=== PATIENT | male | born 1940 | race Caucasian/White ===

== ENCOUNTER → 2019-11-14 14:02 | Outpatient (CLI) | payer MEDICARE, OTHER, SELFPAY ==
--- NOTE | ~2019-11-14 | XR_ITS ---
XR chest 2V 11/14/2019 14:55 Indication: Cough with wheezing Procedure: 2 view chest Comparison: Comparison to multiple prior studies sequentially, with oldest reviewed study dated 01/2015. Findings: There is asymmetric density in the left suprahilar region. There are mild bilateral perihil ar interstitial infiltrates with prominence of the pulmonary arteries. No pleural effusion or pneumot horax. Status post median sternotomy for CABG. Impression: 1: Focal asymmetry left suprahilar region. This may represent focal airspace consolidation secondary to atelectasis or pneumonia, although mass is not excluded. Follow-up CT chest recommended. 2: Borderline heart size with pulmonary vascular congestion. Reviewed, dictated and finalized at location A. HOUSE KEEPER Impression: 1: Focal asymmetry left suprahilar region. This may represent focal airspace co nsolidation secondary to atelectasis or pneumonia, although mass is not exclude d. Follow-up CT chest recommended. 2: Borderline heart size with pulmonary vascular congestion.
== END ==
PROVIDERS: PCP Family Medicine Adolescent Medicine; Visit Provider Physician Assistant
DX: R05 Cough (principal); R06.2 Wheezing; R09.89 Other specified symptoms and signs involving the circulatory and respiratory systems
CPT/HCPCS: 71046

== ENCOUNTER → 2019-12-12 11:16 | Outpatient (CLI) | payer MEDICARE, OTHER, SELFPAY ==
--- NOTE | ~2019-12-12 | XR_ITS ---
EXAMINATION: XR chest 2V DATE: 12/12/2019 11:33 INDICATION: Follow-up pneumonia TECHNIQUE: frontal and lateral views of the chest were obtained. COMPARISON: Chest radiograph dated 11/14/2019 and 07/13/2018 FINDINGS: Improvement in prior airspace opacities in the bilateral lower lung zones and left suprahilar region. Mild residual streaky opacities at the posterior lung bases on the lateral projection and favor mild bibasilar atelectasis over pneumonia. No new airspace opacities, pulmonary edema, pleural effusion o r pneumothorax. The cardiomediastinal silhouette is normal. Median sternotomy wires and mediastinal s urgical clips are seen, likely from prior coronary artery bypass grafting. IMPRESSION: 1. Resolution of the majority bilateral airspace opacities with residual mild streaky opacities at th e posterior lung bases and favor atelectasis over pneumonia. Reviewed, dictated and finalized at location A. IMPRESSION: 1. Resolution of the majority bilateral airspace opacities with residual mild s treaky opacities at the posterior lung bases and favor atelectasis over pneumon ia.
== END ==
PROVIDERS: PCP Family Medicine Adolescent Medicine; Visit Provider Physician Assistant
DX: J18.9 Pneumonia, unspecified organism (principal)
CPT/HCPCS: 71046

== ENCOUNTER 2021-04-14 14:29 | Outpatient (CLI) | payer MEDICARE, SELFPAY ==
--- NOTE | ~2021-04-14 | MR_ITS ---
EXAMINATION: MR lumbar spine wo [facility] EXAM DATE: 04/14/2021 15:30 INDICATION: Right leg numbness, acute weakness. Low back pain. TECHNIQUE: Multi-sequential, multiplanar MR images of the lumbar spine were obtained without contrast . Sagittal T1, T2, T2 fat saturation images. Axial T2 weighted images. Comparison is made to prior examination from 06/06/2014. FINDINGS: The conus medullaris terminates at the L1/2 level and has normal signal intensity and morph ology. There is moderate to severe loss of L5-S1 disc height with 4 mm retrolisthesis. Moderate loss of the other lumbar disc heights. There are no suspicious marrow signal abnormalities. Paraspinal so ft tissue is unremarkable. Level by level evaluation: T12-L1: Disc does not extend beyond the endplate margin. Facet arthropathy: Mild. Neural foraminal stenosis: No stenosis. Central canal stenosis: No stenosis. L1-L2: There is a mild to moderate diffuse disc bulge. Facet arthropathy: Mild to moderate. Neural foraminal stenosis: Mild bilateral. Central canal stenosis: Mild. L2-L3: There is a moderate diffuse disc bulge. Facet arthropathy: Mild to moderate. Neural foraminal stenosis: Mild bilateral. Central canal stenosis: Mild to moderate. L3-L4: There is a moderate diffuse disc bulge. Facet arthropathy: Moderate to severe. Ligamentum flavum enlargement. Neural foraminal stenosis: Mild to moderate right, mild left. Central canal stenosis: Moderate. L4-L5: There is a moderate diffuse disc bulge superimposed right central extrusion, inferior migratio n into the lateral recess causing moderate lateral recess stenosis. Extruded fragment measures about 6 x 8 x 12 mm in size. Facet arthropathy: Moderate. Neural foraminal stenosis: Moderate left, mild to moderate right. Central canal stenosis: Mild to moderate. L5-S1: There is a moderate diffuse disc bulge. Facet arthropathy: Mild to moderate left, mild right. Neural foraminal stenosis: Moderate bilateral, left greater than right. Central canal stenosis: Mild. The extrusion at L4-5 has developed compared to previous examination 2013, and there has been some in terval progression in spondylosis. IMPRESSION: 1. L4-5 right central extrusion, inferior migration causing moderate lateral recess stenosis. Could be affecting traversing right S1 nerve root. 2. L3-4 moderate central canal stenosis. 3. L5-S1 grade 1 retrolisthesis, moderate to severe disc disease. Reviewed, dictated and finalized at location A. IMPRESSION: 1. L4-5 right central extrusion, inferior migration causing moderate lateral r ecess stenosis. Could be affecting traversing right S1 nerve root. 2. L3-4 moderate central canal stenosis. 3. L5-S1 grade 1 retrolisthesis, moderate to severe disc disease.
== END 2021-04-14 14:30 | disposition home or self-care (01) ==
LOC: ANHIMG 14:45
PROVIDERS: PCP Family Medicine Adolescent Medicine; Visit Provider Family Medicine Adolescent Medicine
DX: R53.1 Weakness (principal); R20.2 Paresthesia of skin; M51.26 Other intervertebral disc displacement, lumbar region; M51.37 Other intervertebral disc degeneration, lumbosacral region
CPT/HCPCS: 72148

== ENCOUNTER 2021-07-23 13:08 | Outpatient (CLI) | payer MEDICARE, SELFPAY ==
--- NOTE | ~2021-07-23 | XR_ITS ---
EXAMINATION: XR chest 2V DATE: 07/23/2021 13:42 INDICATION: Dysphasia with exertion. TECHNIQUE: Frontal and lateral views of the chest were obtained. COMPARISON: Chest 2 views 10/17/2017, CT abdomen and pelvis 04/09/2014 FINDINGS: The chest demonstrates clear lungs without pneumonia, pleural effusion, or pneumothorax. Th e heart size is normal. Median sternotomy wires and mediastinal surgical clips are seen, likely from prior coronary artery bypass grafting. Surgical clips in the right upper quadrant are likely from cho lecystectomy. IMPRESSION: 1. No acute cardiopulmonary disease. Reviewed, dictated and finalized at location A.
== END 2021-07-23 13:09 | disposition home or self-care (01) ==
LOC: ANHIMG 13:17
PROVIDERS: PCP Family Medicine Adolescent Medicine; Visit Provider Family Medicine Adolescent Medicine
DX: R06.00 Dyspnea, unspecified (principal)
CPT/HCPCS: 71046

== ENCOUNTER 2021-08-12 14:03 | Outpatient (CLI) | payer MEDICARE, SELFPAY ==
--- NOTE | 2021-08-12 16:36 | WPDPFTINT ---
PFT Procedure Performed PFT Procedure Performed Flow Vol Loop Spirometry w/o Bronchodil PFT Interpretation This is a pulmonary function test with spirometry. The test was performed and results interpreted in accordance with the 2019 and 2005 ATS/ERS Task Force guidelines respectively using the Global Lung Function Initiative-2012 reference equations. Patient demonstrated good effort and cooperation. Reproducibility criteria were met. The quality of the pre bronchodilator spirometry maneuver was Grade A. Findings: Spirometry: The contour the inspiratory expiratory flow tracing are normal. The FVC is 2.31 L, 61% predicted. The FEV1 is 1.99 L, 70% predicted. The FEV1: FVC ratio was 85%. Impression: The FVC and FEV1 are mildly decreased with a normal FEV1:FVC ratio and without evidence of an obstructive abnormality. This pattern is consistent with a restrictive abnormality and if clinically indicated recommend full PFTs including spirometry, plethysmography and DLCO. There are no prior studies for comparison
== END 2021-08-12 14:04 | disposition home or self-care (01) ==
LOC: ANHPFT 14:05
PROVIDERS: PCP Family Medicine Adolescent Medicine; Visit Provider Family Medicine Adolescent Medicine
DX: R06.2 Wheezing (principal)
CPT/HCPCS: 94375

== ENCOUNTER 2021-09-09 08:07 | Outpatient (CLI) | payer MEDICARE, SELFPAY ==
--- NOTE | 2021-09-09 12:34 | WPDPFTINT ---
PFT Procedure Performed PFT Procedure Performed Plethysmography (Lung Vol) Diffusing Cap (DLCO) Flow Vol Loop Spirometry w/o Bronchodil PFT Interpretation This is a pulmonary function test with spirometry, plethysmography and diffusing capacity. The test was performed and results interpreted in accordance with the 2019 and 2005 ATS/ERS Task Force guidelines respectively using the Global Lung Function Initiative-2012 reference equations. Patient demonstrated good effort and cooperation. Reproducibility criteria were met. The quality of the spirometry maneuver was Grade A. Findings: Spirometry: The contour the inspiratory and expiratory flow tracing are normal. The FVC is 2.46 L, 64% predicted. The FEV1 is 1.94 L, 68% predicted. The FEV1: FVC ratio 79%. Plethysmography: The total lung capacity is 4.97 L, 70% predicted. The functional residual capacity is 2.54 L, 66% predicted. The residual volume is 2.33 L, 87% predicted. Diffusing capacity: The absolute diffusing capacity is 12.1, 51% predicted. The diffusing capacity corrected for alveolar volume is 2.90, 81% predicted. In comparison to previous spirometry performed on 08/12/2021 the FVC is unchanged from 2.35 L to 2.46 L. The FEV1 is unchanged from 1.99 L to 1.94 L. Plethysmography and diffusing capacity were not performed on 08/12/2021. Impression: There is a moderate restrictive ventilatory abnormality. The spirometry is normal without evidence of an obstructive abnormality. The absolute diffusing capacity is moderately decreased and normalizes when corrected for alveolar volume. In comparison to previous spirometry performed on 08/12 2021 there has been no significant change in the FVC or FEV1. Clinical correlation is recommended.
== END 2021-09-09 08:08 | disposition home or self-care (01) ==
PROVIDERS: PCP Family Medicine Adolescent Medicine; Visit Provider Family Medicine Adolescent Medicine
DX: R06.00 Dyspnea, unspecified (principal)
CPT/HCPCS: 94375; 94726; 94729

== ENCOUNTER 2021-11-06 11:00 | Outpatient (CLI) | payer MEDICARE, SELFPAY ==
[2021-11-06 12:01] LABS: Basophils Percent Auto 0.6 % (0.2-1.2); Eosinophils Absolute Auto 0.3 K/mm3 (0-0.3); Eosinophils Percent Auto 4.6 % (0-4.4); Hematocrit 41.2 % (42.0-52.0); Hemoglobin 13.2 g/dL (14.0-18.0); Immature Granulocyte Absolute 0.02 K/mm3 (0.00-0.031); Immature Granulocyte Percent A 0.3 % (0-0.5); Lymphocytes Absolute Auto 2.11 K/mm3 (0.9-3.2); Lymphocytes Percent Auto 31.1 % (18.3-44.2); Mean Corpuscular Hemoglobin 30.3 pg (26-34); Mean Corpuscular Volume 94.5 fl (80-100); Mean Platelet Volume 11.6 fl (7.4-10.4); Neutrophils Absolute Auto 3.3 K/mm3 (1.3-6.7); Neutrophils Percent Auto 48.4 % (45.5-73.1); Platelet Count Result 210 k/mm3 (150-375); Red Blood Count 4.36 M/mm3 (4.6-6.20); Red Cell Distribution Width 13.3 % (11.5-14.5); White Blood Count 6.8 K/mm3 (4.5-10.0)
== END 2021-11-06 11:01 | disposition home or self-care (01) ==
PROVIDERS: Visit Provider Internal Medicine Pulmonary Disease
DX: J98.4 Other disorders of lung (principal)
CPT/HCPCS: 36415; 85025

== ENCOUNTER 2021-11-11 08:05 | Outpatient (CLI) | payer MEDICARE, SELFPAY ==
--- NOTE | 2021-11-19 11:32 | WPDSLEEPSTUD ---
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 The patient frequently awakens from sleep short of breath. He denies awakening at night with heartburn, belching or cough. He constantly snores loud enough that others complain. He frequently has trouble sleeping when he has a cold. He denies waking gasping for air throughout night. He occasionally has breathing problems at night observed others. He rarely sweats excessively at night. He rarely has heart palpitations or irregular heartbeats during the night. He frequently falls asleep during the day but never while driving. He denies sleep paralysis and cataplexy. He occasionally has vivid dreamlike scenes upon awakening or falling asleep. He denies having nightmares. He frequently has thoughts racing through his mind. He rarely feels sad or depressed. He occasionally has anxiety. He occasionally notices parts of his body jerk. He frequently kicks during the night. He frequently has crawling and aching feelings in his legs as well as leg pain during the night. He rarely grinds his teeth during sleep but denies awakening with morning jaw pain. He occasionally is bothered by pain during the day and occasionally awakened by pain during the night. He frequently wakes up feeling stiff in the morning. He occasionally wakes up with sore achy muscles. He occasionally wakes up with pain in the neck, spine or other joints. He goes to bed at 11:00 p.m. on both weekdays and weekends. It takes him 30 minutes to fall asleep. He wakes up 2-3 times throughout the night to urinate. It takes him 1-2 hours to fall back asleep. He wakes up at 8:00 a.m. on both weekdays and weekends. He typically gets between 5-7 hours of sleep per night. He will stay in bed for 10 minutes after waking up in the morning. He currently lives with his . He does not consume any caffeinated beverages within 2 hours of bedtime. He does not engage in physical exercise before bedtime. Will read before falling asleep. He will take naps in the afternoon or the evening which are refreshing. He drinks 3 caffeinated beverages per day. He denies tobacco, alcohol and recreational drug use. [facility] Past Medical History Medical History CAD (coronary artery disease) GERD (gastroesophageal reflux disease) HTN (hypertension) Surgical History Surgical History Hx of CABG Medications Home Medications Medication Instructions Recorded Confirmed Type atorvastatin 10 mg tablet 10 mg PO DAILY #90 tablet 09/28/21 Rx amlodipine 10 mg tablet 10 mg PO DAILY 11/06/21 History aspirin 325 mg tablet 81 mg PO DAILY tablet 11/06/21 History chondroitin sulfate A sodium 400 1,200 mg PO DAILY cap 11/06/21 History mg capsule furosemide 40 mg tablet 40 mg PO QAM 11/06/21 History glucosamine sulfate 500 mg tablet 1,500 mg PO DAILY tablet 11/06/21 History isosorbide mononitrate 30 mg 30 mg PO DAILY 11/06/21 History tablet,extended release 24 hr levothyroxine 50 mcg capsule 50 mcg PO DAILY 11/06/21 History lisinopril 40 mg tablet 40 mg PO DAILY 11/06/21 History metoprolol tartrate 25 mg tablet 12.5 mg PO BID 11/06/21 History multivitamin with iron 1 tablet PO DAILY 11/06/21 History omeprazole 40 mg capsule,delayed 40 mg PO DAILY 11/06/21 History release probenecid 500 mg-colchicine 0.5 1 tablet PO
[2021-11-19 16:00] VITALS: BMI 30.8
== END 2021-11-12 06:46 | disposition home or self-care (01) ==
LOC: ANHCSM 08:05
PROVIDERS: PCP Family Medicine Adolescent Medicine; Visit Provider Internal Medicine Pulmonary Disease
DX: G47.10 Hypersomnia, unspecified (principal); G47.33 Obstructive sleep apnea (adult) (pediatric); I49.9 Cardiac arrhythmia, unspecified
CPT/HCPCS: 95811

== ENCOUNTER 2021-11-16 15:07 | Outpatient (CLI) | payer MEDICARE, SELFPAY ==
--- NOTE | ~2021-11-16 | CT_ITS ---
EXAMINATION: CT chest high resolution wo ar DATE: 11/16/2021 15:36 INDICATION: Shortness of breath. History of pneumonia. TECHNIQUE: Computed tomography (CT) of the chest was performed without intravenous contrast. The dose -length product was 279.05 mGy-cm. Automated exposure control and iterative reconstruction technique were employed. COMPARISON: Chest x-ray dated 07/23/2021 FINDINGS: Status post median sternotomy for CABG. No significant pleural or pericardial effusion. Sta tus post cholecystectomy. Heart size normal. Borderline size mediastinal lymph nodes are likely react jnony. There is atherosclerosis of the aorta and coronary arteries. No endobronchial lesions. No pneumo thorax. No suspicious pulmonary nodules or masses. No focal airspace consolidation to suggest pneumon ia. Mild thoracic spondylosis with accentuated kyphosis. IMPRESSION: 1. No acute cardiopulmonary disease. Reviewed, dictated and finalized at location B. CONSULTANT
== END 2021-11-16 15:08 | disposition home or self-care (01) ==
LOC: ANHIMG 15:14
PROVIDERS: PCP Family Medicine Adolescent Medicine; Visit Provider Internal Medicine Pulmonary Disease
DX: J44.9 Chronic obstructive pulmonary disease, unspecified (principal); J98.4 Other disorders of lung; R06.00 Dyspnea, unspecified; I70.0 Atherosclerosis of aorta; I65.23 Occlusion and stenosis of bilateral carotid arteries; M47.814 Spondylosis without myelopathy or radiculopathy, thoracic region
CPT/HCPCS: 71250

== ENCOUNTER 2021-11-26 12:29 | Outpatient (CLI) | payer MEDICARE, SELFPAY ==
--- NOTE | 2021-11-26 12:39 | ECHO_ITS ---
Patient Info Name: Manolo Agrawal Age: 81 years : 1940 Gender: Male Ht: 69 in Wt: 214 lbs BSA: 2.20 m2 HR: 59 bpm BP: 145 / 82 mmHg Technical Quality: Good Exam Date: 11/26/2021 1:35 PM Exam Location: [facility] Patient Status: Outpatient Admit Date: 11/26/2021 Staff Ordering Physician: Joshua Rose MD Firestopper Installer: Jean-Paul Knox, REGI, RT Attending Provider: Joshua Rose MD Referring Physician: Milton HER; Exam Type: CA echo doppler color flow Study Info Indications R06.00 - Dyspnea, unspecified Complete two-dimensional, color flow and Doppler transthoracic echocardiogram is performed. Strain analysis performed. Summary 1. Complete two-dimensional, color flow and Doppler transthoracic echocardiogram is performed. 2. Left ventricular chamber dimension is normal. 3. Left ventricular systolic function is normal, estimated at 60-65%. 4. There is mildly increased left ventricular wall thickness. 5. The left ventricular diastolic function is grade I diastolic dysfunction. 6. E/e' 7 is not elevated. 7. Global longitudinal strain is normal at -17.7%. 8. Left atrial chamber dimension is moderately enlarged. 9. There is mild mitral valve regurgitation. 10. There is mild tricuspid valve regurgitation. Left Ventricle E/e' 7 is not elevated. Global longitudinal strain is normal at -17.7%. Left ventricular chamber dimension is normal. Left ventricular systolic function is normal, estimated at 60-65%. There is mildly increased left ventricular wall thickness. The left ventricular diastolic function is grade I diastolic dysfunction. Right Ventricle Right ventricular systolic function is normal and with normal TAPSE 2.1 cm. Right ventricular chamber dimension is normal. Left Atria Left atrial chamber dimension is moderately enlarged. Right Atria Right atrial chamber dimension is normal. Aortic Valve The aortic valve is trileaflet. There is no aortic valve stenosis. There is no aortic valve regurgitation. Pulmonic Valve There is no pulmonic regurgitation. Mitral Valve There is no mitral valve stenosis. There is mild mitral valve regurgitation. Tricuspid Valve RVSP is not calculated due to an inadequate TR jet. There is mild tricuspid valve regurgitation. Pericardium/Pleural There is no pericardial effusion. Inferior Vena Cava Normal inferior vena cava with >50% collapse upon inspiration consistent with normal right atrial pressure, 5 mmHg. Aorta The aortic root size at the sinus of Valsalva is normal. Left Ventricular Outflow Tract Name Value Normal LVOT 2D LVOT Diameter 2.0 cm LVOT Doppler LVOT Peak Gradient 3 mmHg LVOT Mean Gradient 1 mmHg LVOT VTI 27 cm LVOT VTI/AV VTI Ratio 0.8 LVOT Stroke Volume 87 ml LVOT CO 3.5 l/min LVOT CI 1.6 l/min/m2 Mitral Valve
[2021-11-26 13:00] VITALS: PULSE 68; O2SAT 95
[2021-11-26 13:03] VITALS: O2SAT 87
[2021-11-26 13:05] VITALS: O2SAT 87
[2021-11-26 13:06] VITALS: PULSE 79; O2SAT 90
[2021-11-26 13:15] VITALS: PULSE 63; O2SAT 94
--- NOTE | 2021-11-26 13:36 | HOMEO2EVAL ---
Evaluation was performed at [facility] Home Oxygen Evaluation RC: Home Oxygen (O2) Evaluation Start: 11/26/21 13:33 Freq: Status: Active Protocol: RPE Activity Type Activity Date Activity User E-Sign Co-Sign Detail Recorded Client Recorded Date Recorded By Document 11/26/21 13:00 [email or web address] [email or web address] 11/26/21 13:36 DJO Document 11/26/21 13:03 [email or web address] [email or web address] 11/26/21 13:36 DJO Document 11/26/21 13:05 [email or web address] [email or web address] 11/26/21 13:36 DJO Document 11/26/21 13:06 [email or web address] [email or web address] 11/26/21 13:36 DJO Document 11/26/21 13:15 [email or web address] [email or web address] 11/26/21 13:36 DJO 11/26/21 11/26/21 11/26/21 13:00 13:03 13:05 Home O2 Evaluation Test Phase Resting Exercise Exercise Oxygen Delivery Room Air Room Air Nasal Cannula Oxygen Flow Rate (L/min) 1 Pulse Oximetry (90-100 %) 95 87 L 87 L Pulse Rate (60-100 beats/min) 68 Home Oxygen Evaluation Comments Treatment Charges O2 Evaluation - Outpatient 11/26/21 11/26/21 13:06 13:15 Home O2 Evaluation Test Phase Exercise Resting Oxygen Delivery Nasal Cannula Room Air Oxygen Flow Rate (L/min) 2 Pulse Oximetry (90-100 %) 90 94 Pulse Rate (60-100 beats/min) 79 63 Home Oxygen Evaluation Comments PT REQUIRES 2 L WITH ACTIVITY Treatment Charges
--- NOTE | 2021-11-26 13:37 | PCRCNOTE ---
NEW HOME O2 SET UP, FAXED EVAL TO OFFICE
== END 2021-11-26 12:30 | disposition home or self-care (01) ==
LOC: ANHPFT 12:33
PROVIDERS: PCP Family Medicine Adolescent Medicine; Visit Provider Internal Medicine Pulmonary Disease
DX: R06.00 Dyspnea, unspecified (principal); I08.1 Rheumatic disorders of both mitral and tricuspid valves
CPT/HCPCS: 93306; 94618

== ENCOUNTER 2021-11-30 08:05 | Outpatient (CLI) | payer MEDICARE, SELFPAY ==
--- NOTE | 2021-12-01 14:13 | WPDSLEEPSTUD ---
Sleep Study Date of Study: 11/30/21 Ordering Provider: Joshua Rose MD Interpreting Physician: Viviana Dias DO Sleep Study Type: BiPAP Titration Height: 1.75 m Weight: 96.162 kg Body Mass Index: 31.3 Neck Circumference (inches): 18 [place]: 10 Reason for Sleep Study The patient had a Split Study on 11/11/21. It showed an AHI of 92.1 in the diagnostic portion of the study which is consistent with severe sleep apnea. The patient was started on CPAP 5 cm H2O and titrated to CPAP 15 cm with an EPR of 2. The patient's sleep-disordered breathing did not resolve at the final pressure. 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 The patient frequently awakens from sleep short of breath. He denies awakening at night with heartburn, belching or cough. He constantly snores loud enough that others complain. He frequently has trouble sleeping when he has a cold. He denies waking gasping for air throughout night. He occasionally has breathing problems at night observed others. He rarely sweats excessively at night. He rarely has heart palpitations or irregular heartbeats during the night. He frequently falls asleep during the day but never while driving. He denies sleep paralysis and cataplexy. He occasionally has vivid dreamlike scenes upon awakening or falling asleep. He denies having nightmares. He frequently has thoughts racing through his mind. He rarely feels sad or depressed. He occasionally has anxiety. He occasionally notices parts of his body jerk. He frequently kicks during the night. He frequently has crawling and aching feelings in his legs as well as leg pain during the night. He rarely grinds his teeth during sleep but denies awakening with morning jaw pain. He occasionally is bothered by pain during the day and occasionally awakened by pain during the night. He frequently wakes up feeling stiff in the morning. He occasionally wakes up with sore achy muscles. He occasionally wakes up with pain in the neck, spine or other joints. He goes to bed at 11:00 p.m. on both weekdays and weekends. It takes him 30 minutes to fall asleep. He wakes up 2-3 times throughout the night to urinate. It takes him 1-2 hours to fall back asleep. He wakes up at 8:00 a.m. on both weekdays and weekends. He typically gets between 5-7 hours of sleep per night. He will stay in bed for 10 minutes after waking up in the morning. He currently lives with his . He does not consume any caffeinated beverages within 2 hours of bedtime. He does not engage in physical exercise before bedtime. Will read before falling asleep. He will take naps in the afternoon or the evening which are refreshing. He drinks 3 caffeinated beverages per day. He denies tobacco, alcohol and recreational drug use. [facility] Past Medical History Medical History CAD (coronary artery disease) GERD (gastroesophageal reflux disease) HTN (hypertension) Surgical History Surgical History Hx of CABG Medications Home Medications Medication Instructions Recorded Confirmed Type atorvastatin 10 mg tablet 10 mg PO DAILY #90 tablet 09/28/21 Rx amlodipine 10 mg tablet 10 mg PO DAILY 11/06/21 History aspirin 325 mg tablet 81 mg PO DAILY tablet 11/06/21 History chondroitin sulfate A sodium 400 1,200 mg PO DAILY cap 11/06/21 History mg capsule furosemide 40 mg tablet 40 mg PO QAM 11/06/21 History glucosamine sulfate 500 mg tablet 1,500 mg PO DAILY tablet 11/06/21 History isosorbide mononitrate 30 mg 30 mg PO DAILY 11/06/21 History tablet,extended release 24 hr lisinopril 40 mg tablet 40 mg PO DAILY 11/06/21 History metoprolol tartrate 25 mg tablet 12.5 mg PO BID 11/06
[2021-12-01 16:35] VITALS: BMI 31.3
== END 2021-12-01 06:53 | disposition home or self-care (01) ==
LOC: ANHCSM 08:06
PROVIDERS: PCP Family Medicine Adolescent Medicine; Visit Provider Internal Medicine Pulmonary Disease
DX: G47.33 Obstructive sleep apnea (adult) (pediatric) (principal)
CPT/HCPCS: 95811

== ENCOUNTER 2021-12-14 07:40 | Outpatient (CLI) | payer MEDICARE, SELFPAY ==
[2021-12-15 15:25] VITALS: BMI 30.1
--- NOTE | 2021-12-15 15:25 | WPDSLEEPSTUD ---
Sleep Study Date of Study: 12/14/21 Ordering Provider: Joshua Rose MD Interpreting Physician: Viviana Dias DO Sleep Study Type: CPAP Titration Height: 1.78 m Weight: 95.254 kg Body Mass Index: 30.1 Neck Circumference (inches): 18 [place]: 16 Reason for Sleep Study The patient had a Split Study on 11/11/21. It showed an AHI of 92.1 in the diagnostic portion of the study which is consistent with severe sleep apnea. The patient was started on CPAP 5 cm H2O and titrated to CPAP 15 cm with an EPR of 2. The patient's sleep-disordered breathing did not resolve at the final pressure. The patient had a PAP Titration on 11/30/2021 where the patient was started on BPAP 10/6 and titrated to BPAP 18/10 with 2 lpm of oxygen. On BPAP, the patient developed central apneas that became more frequent and longer with increasing pressures and an increased gradient. It was recommended that he have a repeat titration starting at 10 cm with specific instructions per sleep physician. 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 The patient frequently awakens from sleep short of breath. He denies awakening at night with heartburn, belching or cough. He constantly snores loud enough that others complain. He frequently has trouble sleeping when he has a cold. He denies waking gasping for air throughout night. He occasionally has breathing problems at night observed others. He rarely sweats excessively at night. He rarely has heart palpitations or irregular heartbeats during the night. He frequently falls asleep during the day but never while driving. He denies sleep paralysis and cataplexy. He occasionally has vivid dreamlike scenes upon awakening or falling asleep. He denies having nightmares. He frequently has thoughts racing through his mind. He rarely feels sad or depressed. He occasionally has anxiety. He occasionally notices parts of his body jerk. He frequently kicks during the night. He frequently has crawling and aching feelings in his legs as well as leg pain during the night. He rarely grinds his teeth during sleep but denies awakening with morning jaw pain. He occasionally is bothered by pain during the day and occasionally awakened by pain during the night. He frequently wakes up feeling stiff in the morning. He occasionally wakes up with sore achy muscles. He occasionally wakes up with pain in the neck, spine or other joints. He goes to bed at 11:00 p.m. on both weekdays and weekends. It takes him 30 minutes to fall asleep. He wakes up 2-3 times throughout the night to urinate. It takes him 1-2 hours to fall back asleep. He wakes up at 8:00 a.m. on both weekdays and weekends. He typically gets between 5-7 hours of sleep per night. He will stay in bed for 10 minutes after waking up in the morning. He currently lives with his . He does not consume any caffeinated beverages within 2 hours of bedtime. He does not engage in physical exercise before bedtime. Will read before falling asleep. He will take naps in the afternoon or the evening which are refreshing. He drinks 3 caffeinated beverages per day. He denies tobacco, alcohol and recreational drug use. [facility] Past Medical History Medical History CAD (coronary artery disease) GERD (gastroesophageal reflux disease) HTN (hypertension) Surgical History Surgical History Hx of CABG Medications Home Medications Medication Instructions Recorded Confirmed Type atorvastatin 10 mg tablet 10 mg PO DAILY #90 tablet 09/28/21 Rx amlodipine 10 mg tablet 10 mg PO DAILY 11/06/21 History aspirin 325 mg tablet 81 mg PO DAILY tablet 11/06/21 History chondroitin sulfate A sodium 400 1,200 mg PO DA
== END 2021-12-15 07:08 | disposition home or self-care (01) ==
LOC: ANHCSM 07:41
PROVIDERS: PCP Family Medicine Adolescent Medicine; Visit Provider Internal Medicine Pulmonary Disease
DX: G47.31 Primary central sleep apnea (principal); G47.33 Obstructive sleep apnea (adult) (pediatric)
CPT/HCPCS: 95811

== ENCOUNTER 2022-05-06 12:32 | Outpatient (CLI) | payer MEDICARE, SELFPAY ==
[2022-05-06 12:55] VITALS: PULSE 62; O2SAT 93
[2022-05-06 13:00] VITALS: PULSE 71; O2SAT 85
[2022-05-06 13:05] VITALS: PULSE 82; O2SAT 88
[2022-05-06 13:10] VITALS: PULSE 88; O2SAT 91
[2022-05-06 13:25] VITALS: PULSE 66; O2SAT 93
--- NOTE | 2022-05-06 13:31 | HOMEO2EVAL ---
Evaluation was performed at [facility] Home Oxygen Evaluation RC: Home Oxygen (O2) Evaluation Start: 05/06/22 13:24 Freq: Status: Active Protocol: RPE Activity Type Activity Date Activity User E-sign Co-sign Detail Recorded Client Recorded Date Recorded By Document 05/06/22 12:55 [email or web address] [email or web address] 05/06/22 13:31 DJO Document 05/06/22 13:00 [email or web address] [email or web address] 05/06/22 13:31 DJO Document 05/06/22 13:05 [email or web address] [email or web address] 05/06/22 13:31 DJO Document 05/06/22 13:10 [email or web address] [email or web address] 05/06/22 13:31 DJO Document 05/06/22 13:25 [email or web address] [email or web address] 05/06/22 13:31 DJO 05/06/22 05/06/22 05/06/22 12:55 13:00 13:05 Home O2 Evaluation Test Phase Resting Exercise Exercise Oxygen Delivery Room Air Room Air Nasal Cannula Oxygen Flow Rate (L/min) 1 Pulse Oximetry (90-100 %) 93 85 L 88 L Pulse Rate (60-100 beats/min) 62 71 82 Activity Tolerance Ambulation Distance (feet) Ambulation Distance (meters) Treatment Charges O2 Evaluation - Outpatient 05/06/22 05/06/22 13:10 13:25 Home O2 Evaluation Test Phase Exercise Resting Oxygen Delivery Nasal Cannula Room Air Oxygen Flow Rate (L/min) 2 Pulse Oximetry (90-100 %) 91 93 Pulse Rate (60-100 beats/min) 88 66 Activity Tolerance Good Ambulation Distance (feet) 1,200 Ambulation Distance (meters) 365.74 Treatment Charges
== END 2022-05-06 12:33 | disposition home or self-care (01) ==
LOC: ANHPFT 12:35
PROVIDERS: PCP Family Medicine Adolescent Medicine; Visit Provider Internal Medicine Pulmonary Disease
DX: R06.02 Shortness of breath (principal)
CPT/HCPCS: 94618

== ENCOUNTER 2024-02-23 12:32 | Outpatient (CLI) | payer MEDICARE, SELFPAY ==
--- NOTE | 2024-02-24 10:09 | WPDPFTINT ---
PFT Procedure Performed PFT Procedure Performed Spirometry with Pre/Post Bronchodilator Plethysmography (Lung Vol) Diffusing Cap (DLCO) Flow Vol Loop PFT Interpretation Lung volumes were measured with the body plethysmography method. The diminished lung volumes are indicative of restrictive respiratory disease. Spirometry showed diminished expiratory flow rates and a normal FEV1 to FVC ratio of 80%, also consistent with restrictive respiratory disease. Following administration of bronchodilator there was no significant increase in the expiratory flow rates. Lung diffusion capacity is severely reduced at 45% predicted. The diminished lung diffusion capacity coupled with a normal DLCO/VA ratio and low alveolar volume suggests a loss of alveolar capillary structure as seen in interstitial lung disease. The flow-volume loop is consistent with restrictive respiratory disease. In comparison to previous study in August of 2021, spirometric indices, lung volumes and lung diffusion capacity are little changed. Impression: Moderate restrictive respiratory disease. Severely reduced lung diffusion capacity.
== END 2024-02-23 12:33 | disposition home or self-care (01) ==
LOC: ANHPFT 12:33
PROVIDERS: PCP Family Medicine Adolescent Medicine; Visit Provider Physician Assistant
DX: J98.4 Other disorders of lung (principal)
CPT/HCPCS: 94060; 94726; 94729

== ENCOUNTER 2024-02-23 12:33 | Outpatient (CLI) | payer MEDICARE, SELFPAY ==
--- NOTE | ~2024-02-23 | CT_ITS ---
EXAMINATION:CT chest high resolution wo co DATE: 02/23/2024 14:31 INDICATION: Chronic respiratory failure with hypoxia. TECHNIQUE: Computed tomography (CT) of the chest was performed without intravenous contrast. Automate d exposure control and iterative reconstruction technique were employed. The dose-length product (DLP ) was 496.42 mGy-cm. COMPARISON: Chest CT 11/16/2021, MRCP 01/09/2008 FINDINGS: The lungs demonstrate mild atelectasis. There is mild bronchiectasis in the inferior lungs. No honeycombing. There is mild scarring in paraspinal right lower lobe. No pleural effusion. The hea rt size is normal. There are coronary artery calcifications. No pericardial effusion. There are west es of coronary artery bypass grafting. There is chronic mild mediastinal lymphadenopathy, likely reac tive. There are changes of cholecystectomy. There is a 17 mm mass in right kidney measuring soft tiss ue attenuation. There is severe cervical spondylosis, mild thoracic spondylosis, and severe lumbar sp ondylosis. There is a chronic compression fracture of T3. There is a benign bone island in T1 vertebr al body. IMPRESSION: 1. Mild bronchiectasis in the inferior lungs. 2. 17 mm right kidney mass, which may be a hemorrhagic cyst or less likely a neoplasm. Abdomen CT wit hout and with contrast is recommended. Reviewed, dictated and finalized at location A. IMPRESSION: 1. Mild bronchiectasis in the inferior lungs. 2. 17 mm right kidney mass, which may be a hemorrhagic cyst or less likely a ne oplasm. Abdomen CT without and with contrast is recommended.
== END 2024-02-23 12:34 | disposition home or self-care (01) ==
PROVIDERS: PCP Family Medicine Adolescent Medicine; Visit Provider Physician Assistant
DX: J96.11 Chronic respiratory failure with hypoxia (principal); J98.4 Other disorders of lung; D86.9 Sarcoidosis, unspecified; J47.9 Bronchiectasis, uncomplicated; N28.89 Other specified disorders of kidney and ureter
CPT/HCPCS: 71250; 94060; 94726; 94729

== ENCOUNTER 2024-03-14 14:31 | Outpatient (CLI) | payer MEDICARE, SELFPAY ==
--- NOTE | ~2024-03-14 | CT_ITS ---
EXAMINATION: CT abdomen pelvis wo/w con DATE: 03/14/2024 15:04 INDICATION: Right kidney mass. TECHNIQUE: Computed tomography (CT) of the abdomen and pelvis was performed without and with 100 mL O mnipaque 350 intravenous contrast. Automated exposure control and iterative reconstruction technique were employed. The dose-length product was 1592.06 mGy-cm. COMPARISON: CT abdomen and pelvis 04/09/2014 FINDINGS: The visualized portions of the lung bases demonstrate mild atelectasis. No pleural effusion . There is left atrial enlargement of the heart. There are coronary artery calcifications. No pericar dial effusion. The liver is normal. There are changes of cholecystectomy. The common duct is dilated to 16 mm, stable from 04/09/2014. There are 5 mm and 15 mm hypodense masses in the spleen, likely gran ulomatous disease or cysts. The pancreas and adrenal glands are normal. There is cortical thinning of the kidneys. There is a 2.2 cm enhancing mass in right kidney. The prostate is mildly enlarged. Ther e is a left inguinal hernia containing fat. There is diverticulosis of the colon without evidence of diverticulitis. The appendix is normal. There are no dilated loops of bowel. There is calcified ather osclerosis of the aorta and many of the other arteries. There are no pathologically enlarged lymph no kasey. There is no free intraperitoneal fluid. There is an umbilical hernia containing fat. There is se reza lumbar spondylosis. IMPRESSION: 1. 2.2 cm enhancing right kidney mass, consistent with renal cell carcinoma. Reviewed, dictated and finalized at location A.
[2024-03-14 14:52] LABS: Estimated Glomerular Filt Rate 58
== END 2024-03-14 14:32 ==
PROVIDERS: Referring Provider Internal Medicine Critical Care Medicine; Visit Provider Family Medicine Adolescent Medicine
DX: N28.89 Other specified disorders of kidney and ureter (principal)
CPT/HCPCS: 74178; Q9967

== ENCOUNTER 2024-03-19 08:25 | Outpatient (CLI) | payer MEDICARE, SELFPAY ==
[2024-03-19 08:30] VITALS: PULSE 60; O2SAT 93
[2024-03-19 08:35] VITALS: PULSE 90; O2SAT 87
[2024-03-19 08:36] VITALS: PULSE 91; O2SAT 92
--- NOTE | 2024-03-19 09:13 | HOMEO2EVAL ---
Evaluation was performed at [facility] Home Oxygen Evaluation RC: Home Oxygen (O2) Evaluation Start: 03/19/24 09:07 Freq: Status: Active Protocol: RPE Activity Type Activity Date Activity User E-sign Co-sign Detail Recorded Client Recorded Date Recorded By Document 03/19/24 08:30 DUONG [email or web address] 03/19/24 09:13 DUONG Document 03/19/24 08:35 DUONG [email or web address] 03/19/24 09:13 DUONG Document 03/19/24 08:36 DUONG [email or web address] 03/19/24 09:13 DUONG 03/19/24 03/19/24 03/19/24 08:30 08:35 08:36 Home O2 Evaluation [Oxygen] -Test Phase Resting Exercise Exercise -Oxygen Delivery Room Air Room Air Nasal Cannula -Oxygen Flow Rate (L/min) 2 [Pulse Oximetry] -Pulse Oximetry (90-100 %) 93 87 L 92 [Pulse Rate] -Pulse Rate (60-100 beats/min) 60 90 91 [Exercise] -Ambulation Distance (feet) 800 -Ambulation Distance (meters) 243.82 [Comments] -Home Oxygen Evaluation Comments Pt requires 2 L with activity, used personal pulse dose POC. [Charges] -Evaluation Charges O2 Evaluation by Pulmonary
== END 2024-03-19 08:26 | disposition home or self-care (01) ==
LOC: ANHPFT 08:26
PROVIDERS: PCP Family Medicine Adolescent Medicine; Visit Provider Physician Assistant
DX: J98.4 Other disorders of lung (principal)
CPT/HCPCS: 94618

== ENCOUNTER 2024-09-07 13:38 | Outpatient (CLI) | payer MEDICARE, SELFPAY ==
--- NOTE | 2024-09-10 18:37 | WPDSIXMINUTE ---
Six Minute Walk Procedure Procedure Performed Pulmonary Stress Test (6 min walk) Six Minute Walk Six Minute Walk: DATE OF SERVICE: 09/07/2024 REQUESTING: Yazan Villarreal MD REASON FOR TESTING: Chronic respiratory failure SIX MINUTE WALK This test was conducted per ATS guidelines. The patient wore supplemental oxygen at 2 liters/minute during testing. The initial saturation was 97%, and initial heart rate was 59 beats per minute. The patient walked without stopping, completing 304 meters/1000 feet. The saturation at the end of testing was 92%, and the heart rate was 98 beats per minute. The dyspnea fatigue scale was 0 at the beginning of the study and 3 at the end of the study. IMPRESSION: This study shows that the patient had adequate oxygenation using 2 liters/minute while exercising. Jennifer Howard MD
== END 2024-09-07 13:39 | disposition home or self-care (01) ==
LOC: ANHPFT 13:42
PROVIDERS: Visit Provider Internal Medicine Pulmonary Disease
DX: J96.11 Chronic respiratory failure with hypoxia (principal); J98.4 Other disorders of lung
CPT/HCPCS: 94618

== ENCOUNTER 2024-12-21 13:30 | Outpatient (RCR) | payer MEDICARE, SELFPAY ==
[2024-08-31 15:59] VITALS: PULSE 57
== END 2024-12-21 23:59 | disposition home or self-care (01) ==
LOC: ANHCPREHAB 13:30
PROVIDERS: Visit Provider Internal Medicine Pulmonary Disease
DX: J96.10 Chronic respiratory failure, unspecified whether with hypoxia or hypercapnia (principal)
CPT/HCPCS: 94625; G0239

== ENCOUNTER 2024-12-24 14:12 | Inpatient (IN) | payer MEDICARE, SELFPAY ==
[2024-12-24] VITALS (11 sets, daily range): BP systolic 146–205; BP diastolic 67–97; PULSE 55–65; RESP 16–25; TEMP 36.4–36.7; O2SAT 95–99; BMI 30.6
--- NOTE | ~2024-12-24 | XR_ITS ---
EXAMINATION: XR chest 2V DATE: 12/24/2024 15:51 INDICATION: Cerebrovascular accident. TECHNIQUE: Frontal and lateral views of the chest were obtained. COMPARISON: Chest 2 views 07/23/2021 FINDINGS: There is mild atelectasis at left lung base. No pleural effusion or pneumothorax. The heart size is normal. Median sternotomy wires and mediastinal surgical clips are seen, likely from prior c oronary artery bypass grafting. Surgical clips in the right upper quadrant are likely from cholecyste ctomy. IMPRESSION: 1. Mild atelectasis at left lung base. Reviewed, dictated and finalized at location A.
--- NOTE | ~2024-12-24 | CT_ITS ---
EXAMINATION: CT brain wo con DATE: 12/24/2024 15:58 INDICATION: Left-sided numbness. TECHNIQUE: Computed tomography (CT) of the head was performed without intravenous contrast. The mA wa s adjusted according to patient size. Iterative reconstruction technique was employed. The dose-lengt h product was 605.33 mGy-cm. COMPARISON: None FINDINGS: There is an old lacunar infarct in the right basal ganglia. There are old infarcts in the b ilateral thalami. There are scattered areas of low attenuation in the cerebral white matter. There is an old infarct in the left parietal lobe. There is an old infarct in the left frontal lobe. There is an old infarct in the right frontal lobe. There is no intracranial hemorrhage, acute infarction, or abnormal intracranial mass lesion. The ventricles are normal in size. There is mucosal thickening in the paranasal sinuses. There are likely changes of ocular lens replacement surgeries. The mastoid air cells are normal. IMPRESSION: 1. Old infarcts in the brain. 2. Moderate nonspecific cerebral white matter disease, which likely represents chronic small vessel i schemic disease. Reviewed, dictated and finalized at location A. IMPRESSION: 1. Old infarcts in the brain. 2. Moderate nonspecific cerebral white matter disease, which likely represents chronic small vessel ischemic disease.
--- NOTE | ~2024-12-24 | US_ITS ---
EXAMINATION: US carotid duplex BI DATE: 12/24/2024 20:26 CDT INDICATION: Stroke suspected clinically. On Eliquis. Personal history of renal cell carcinoma TECHNIQUE: Grayscale, color Doppler, and pulsed Doppler images of the cervical carotid arteries were obtained. The degree of vessel stenosis is placed in one of the following categories: normal, <50%, 50-69%, >=7 0% but less than near-occlusion, near-occlusion, or total occlusion. Note that percent stenosis relative to normal distal artery lumen diameter is indirectly measured fro m velocity measurements as described originally by Vega, et al. Radiology 2003; 229:340-346 and upda aravind by Erwin Weinberg et al STROKE 2012;43(3);915-921. COMPARISON: None. FINDINGS: There is mild atherosclerosis of both carotid arteries. Peak systolic velocity (in cm/s) is detailed below RIGHT: Right common carotid artery (CCA): 98.4 cm/s. Right internal carotid artery (ICA) PSV: 65.8 cm/s. Right ICA end-diastolic velocity (EDV): 19.3 cm/s. Right ICA/CCA PSV ratio is 0.7. Right external carotid artery (ECA): 117cm/s. There is antegrade flow in the right vertebral artery LEFT: Left common carotid artery (CCA): 79 cm/s. Left internal carotid artery (ICA) PSV: 80.2 cm/s. Left ICA end-diastolic velocity (EDV): 15.3 cm/s. Left ICA/CCA PSV ratio is 1.0. Left external carotid artery (ECA): 111cm/s. There is antegrade flow in the left vertebral artery. IMPRESSION: 1. Less than 50% stenosis in the right internal carotid artery. 2. Less than 50% stenosis in the left internal carotid artery. Reviewed, dictated and finalized at location A.
--- NOTE | ~2024-12-24 | MR_ITS ---
MRI of the brain Clinical History: CVA Technique: Axial and sagittal T1-weighted images were acquired. These were followed by axial T2-weigh aravind, diffusion weighted, gradient, and FLAIR images. Following intravenous administration of 19 cc Pr oHance gadolinium, T1-weighted fat-sat imaging was performed in the axial and coronal planes. Findings: There is an 8 mm ovoid focus of restricted diffusion in the right thalamus, compatible smal l focal acute infarct. There are extensive background chronic white matter changes in the periventric ular white matter bilaterally. Probable focal left parietal lobe infarct. Ventricles and subarachnoid spaces are mildly dilated. Orbits are unremarkable. Paranasal sinuses and mastoid air cells are essentially clear. Major intracranial flow voids appear intact. Sagittal midline structures are intact. No abnormal postcontrast enhancement identified. IMPRESSION: 8 mm ovoid acute infarct in the right thalamus. No intracranial hemorrhage. Extensive chronic microvascular ischemic change with probable focal old left parietal lobe infarct. Reviewed, dictated and finalized at [facility]. IMPRESSION: 8 mm ovoid acute infarct in the right thalamus. No intracranial hemorrhage. Extensive chronic microvascular ischemic change with probable focal old left pa rietal lobe infarct.
[2024-12-24 14:20] LABS: Glucose Point of Care 184 mg/dl (65-105)
--- NOTE | 2024-12-24 15:32 | ECG_ITS ---
Test Date: 2024-12-24 14:37:49 Measurements Intervals [place] Rate: 55 P: 26 [place]: 169 QRS: -8 QRSD: 95 T: 101 QT: 418 QTc: 400 Interpretive Statements SINUS BRADYCARDIA LEFT VENTRICULAR HYPERTROPHY AND ST-T CHANGE ANTEROSEPTAL INFARCT, AGE INDETERMINATE BASELINE ARTIFACT- I, II, AVR, AVL, AVF ABNORMAL ECG No previous ECG available for comparison Electronically Signed On 12-25-2024 06:01:45 CDT by Clyde Velasquez D.O.
--- OUTSIDE RECORDS SUMMARY | 2024-12-24 15:38 | XMS_ITS | Encounter Summary ---
Author Organization [facility] Address [address] [place] [id number] Care Team Providers Care Em Physician Name Role Phone Gray Lewis MD Primary Care Provider [phone] Encounter Details Date Type Department Care Team (Late st Contact Info) Description 06/18/2020 Prep for Procedure [facility] Pre-Admission Testing [place], [place] [id number] Jason Bravo MD [address] [facility]. [place], [place] [id number] Social History Tobacco Use Types Packs/Day Years Used Date Smoking Tobacco: Never Smokeless Tobacco: Never Alcohol Use Standard Drinks/Week Comments Never 0 (1 standard drink = 0.6 oz pur e alcohol) AUDIT-C Answer Date Recorded Q1: How often do you have a drink containing alc ohol? Never 06/18/2020 Average Number of Drinks Not on file 020 Frequency of Binge Drinking Not on file 05/28 Sex and Gender Information Value Date Recorded Sex Assigned at Not on file Legal Sex Male 2:51 PM CDT Gender Identity Not on file Sexual Orientation Not on file COVID-19 Exposure Response Date Recorded In the last month, have you been in contact with someone who was confirmed or suspected to have Coronavirus / COVID-19? No / Unsure 06/20/2020 12:47 PM CDT documented as of this encounter Plan of Treatment Not on file documented as of this encounter Results * PRE-SURGICAL/PRE-PROCEDURE CORONAVIRUS (COVID 19) (06/21/2020 10:54 AM CDT) CORONAVIRUS SARS COV 2 PCR (RESP) NOT DETECTED NOT DETECTED 06/22/2020 4:40 PM CDT [facility] Comment: A Not Detected (negative) test result for this test means that SARS- CoV-2 RNA was not present in the specimen above the limit of detection. A negative result does not rule out the possibility of COVID-19 and should not be used as the sole basis for treatment or patient management decisions. If COVID-19 is still suspected, based on exposure history together with other clinical findings, re-testing should be considered in consultation with public health authorities. Laboratory test results should always be considered in the context of clinical observations and epidemiological data in making a final diagnosis and patient management decisions. Please review the Fact Sheets and FDA authorized labeling available for health care providers and patients using the following websites: https://[email or web address].[email or web address]/[email or web address]-19/[email or web address]/fact-sheet2 [email or web address]://[email or web address].Clickpass/home/Covid-19/Patients/NAAT/ fact-sheet2 This test has been authorized by the FDA under an Emergency Use Authorization (EUA) for use by authorized laboratories. Due to the current public health emergency, [facility] is receiving a high volume of samples from a wide variety of swabs and media for COVID-19 testing. In order to serve patients during this public health crisis, samples from appropriate clinical sources are being tested. Negative test results derived from specimens received in non-commercially manufactured viral collection and transport media, or in media and sample collection kits not yet authorized by FDA for COVID-19 testing should be cautiously evaluated and the patient potentially subjected to extra precautions such as additional clinical monitoring, including collection of an additional specimen. Methodology: Nucleic Acid Amplification Test (NAAT) includes PCR or TMA Additional information about COVID-19 can be found at the [facility] website: [email or web address]/[email or web address]. Test performed at [facility] [place] [address] [place] [address] Director: JASON WEBSTER DO,MPH FIRST TEST YES 06/21/2020 1:41 PM CDT [facility] EMPLOYED IN HEALTHCARE NO 06/21/2020 1:41 PM CDT [facility] SYMPTOMATIC DEFINED BY CDC NO 06/21/2020 1:41 PM CDT [facility] DATE OF SYMPTOM ONSET NO 06/21/2020 2:13 PM CDT [facility] HOSPITALIZATION STATUS NO 06/21/2020 1:41 PM CDT [facility] PATIENT IN ICU NO 06/21/2020 1:41 PM CDT [facility] RESIDENT OF [facility] NO 06/21/2020 1:41 PM CDT [facility] NOT 06/21/2020 2:13 PM CDT [facility] PATIENT'S RACE WHITE OR 06/21/2020 1:41 PM CDT [facility] ETHNICITY NONHISPANIC 06/21/2020 1:41 PM CDT [facility] SOURCE (QST) NASOPHARYNGEAL SWAB 06/21/2020 1:41 PM CDT [facility] NASOPHARYNGEAL SWAB / Unknown 06/21/2020 10:54 AM CDT Jason Bravo MD MICROBIOLOGY - GENERAL OR DERABLES Final Result [facility] [address] [place] [address], [facility] [id number] [place] [id number], documented in this encounter Visit Diagnoses Diagnosis Pre-op exam- Primary Preoperative examination, unspecified documented in this encounter Additional Health Concerns Infection Onset Date Last Indicated Resolved Time COVID-19 Rule Out 06/21/2020 06/21/2020 06/22/2020 4:40 PM CDT documented as of this encounter Care Teams Em Physician Relationship Specialty Start Date End Date Gray Lewis MD [address] [address] PCP - General FAMILY PRACTICE 06/17/20 documented as of this encounter
--- OUTSIDE RECORDS SUMMARY | 2024-12-24 15:38 | XMS_ITS | Referral Summary ---
Author Organization [facility] D Address [address] [place] [address] Care Team Providers Care Special Education Supervisor Name Role Phone Gray Lewis MD Primary Care Prov ider Yoel Siu MD Unavailable Encounters Date Type Department Care Team Description 12/19/2024 Orders Only [facility] - Interventional Radiology [address] [place] [phone] Demetria Trujillo, RN 12/19/2024 Telephone [facility] - Interventional Radiology [address] [place] [phone] Demetria Trujillo, RN 12/18/2024 Telephone [facility] - Interventional Radiology [address] [place] [phone] Demetria Trujillo, RN 12/18/2024 1:00 PM CDT Office Visit [facility] Cardiology [address] [facility] [address] [place] [address] Yoel Siu MD 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); Chronic diastolic (congestive) heart failure (HCC); Paroxysmal atrial fibrillation (HCC); Chronic heart failure with preserved ejection fraction (HCC) 12/12/2024 Telephone [facility] - Interventional Radiology [address] [place] [phone] Demetria Trujillo, RN 12/10/2024 Telephone [facility] - Interventional Radiology [address] [place] [phone] Demetria Trujillo, RN 12/10/2024 Telephone [facility] - Interventional Radiology [address] [place] [phone] Demetria Trujillo, RN 12/07/2024 4:08 PM CDT - 12/08/2024 1:49 PM CDT Hospital Encounter [address] [phone] Renard Naylor, Roseanna Huertas MD Renal mass, right Discharge Disposition: Discharge to home or self care 12/07/2024 Orders Only [address] [phone] Renard Naylor DO 12/07/2024 Orders Only [facility] - Interventional Radiology [address] [place] [phone] Annie Escobar RN Paroxysmal atrial fibrillation (HCC) 12/07/2024 Telephone [facility] - Interventional Radiology [address] [place] [phone] Demetria Trujillo, THAI 12/07/2024 Orders Only [facility] - Interventional Radiology [address] [place] [phone] Parish Mallory, THAI 12/07/2024 Orders Only [facility] - Interventional Radiology [address] [place] [phone] Santa Duval RN 12/07/2024 1:11 PM CDT Anesthesia Event [facility] - Interventional Radiology [address] [place] [phone] Parish Ley DO Heckroth, John Arthur, MD 12/06/2024 Orders Only [facility] - Interventional Radiology [address] [place] [phone] Annie Escobar, THAI 12/06/2024 Orders Only [facility] - Interventional Radiology [address] [place] [phone] Annie Escobar, THAI Right renal mass (Primary Dx); Paroxysmal atrial fibrillation (HCC) 12/06/2024 Orders Only [facility] - Interventional Radiology [address] [place] [phone] Parish Mallory RN 12/03/2024 Telephone [facility] - Interventional Radiology [address] [place] [phone] Demetria Trujillo RN 11/23/2024 Telephone [facility] Pre Anesthesia Testing [address] [place] [phone] Kathya Bowen RN 11/23/2024 Telephone [facility] - Interventional Radiology [address] [place] [phone] Demetria Trujillo, THAI 11/22/2024 12:15 PM SAMPLE SUPERVISOR Pre-Admission Testing [facility] Pre Anesthesia Testing [address] [place] [phone] Right renal mass; Paroxysmal atrial fibrillation (HCC); Shortness of breath; Hypoxemia; PARDEEP on CPAP 11/13/2024 Orders Only [facility] - Interventional Radiology [address] [place] [phone] Demetria Trujillo RN Right renal mass (Primary Dx); Paroxysmal atrial fibrillation (HCC); Shortness of breath; Hypoxemia; PARDEEP on CPAP 11/13/2024 Telephone [facility] - Interventional Radiology [address] [place] [phone] Demetria Trujillo RN 11/12/2024 12:37 PM SAMPLE SUPERVISOR - 11/12/2024 11:59 PM SAMPLE SUPERVISOR Hospital Encounter [facility] - Interventional Radiology [address] [place] [phone] Bryan Beckham MD Rostambeigi, Nassir, MD Right renal mass Discharge Disposition: Discharge to home or self care 11/09/2024 Telephone [facility] - Interventional Radiology [address] [place] [phone] Demetria Trujillo RN 11/02/2024 Orders Only [facility] - Interventional Radiology [address] [place] [phone] Demetria Trujillo RN 10/25/2024 - 10/25/2024 11:59 PM SAMPLE SUPERVISOR Hospital Encounter [facility] - Imaging [phone] Discharge Disposition: Discharge to home or self care from Last 3 Months Allergies Active Allergy Reactions Criticality Noted Date Comments Amoxicillin Hives,Joint pain Medium joint swelling and hives Ciprofloxacin Rash Medium Reaction: Unknown, , , Diclofenac Hives Medium Iodinated Contrast Media Hives Medium 12/07/2024 Per pt report Iodine Hives Medium Reaction: Unknown, , Penicillins Hives Medium Quinolones Sulfa (Sulfonamide Antibiotics) Other (See comments) 06/05/2023 Reaction: Unknown, , Trimethoprim Medications aspirin 81 mg enteric coated tablet Take 1 tablet (81 mg total) by mouth nightly Active multivitamin capsule Take 1 capsule by mouth every morning Active probenecid (BENEMID) 500 mg tablet Take 1 tablet (500 mg total) by mouth every morning Active glucosamine-joe droitin (glucosamine-cho ndroitin) 500-400 mg capsule Take 1 capsule by mouth 2 (two) times a day Active furosemide (LASIX) 40 mg tablet Take 1 tablet (40 mg total) by mouth 2 (two) times a day Active levothyroxine (SYNTHROID) 50 mcg tablet Take 1 tablet (50 mcg total) by mouth dance teacher before breakfast 1 Active atorvastatin (LIPITOR) 10 mg tablet Take 1 tablet (10 mg total) by mouth nightly 2 Active terazosin (HYTRIN) 5 mg capsule Take 1 capsule (5 mg total) by mouth nightly Active omeprazole (PriLOSEC) 40 mg capsule Take 1 capsule (40 mg total) by mouth nightly 3 Active apixaban (Eliquis) 5 mg tablet Take 1 tablet (5 mg total) by mouth 2 (two) times a day 180 tablet 3 5 Active isosorbide mononitrate ER (IMDUR) 30 mg 24 hr tablet Take 1 tablet (30 mg total) by mouth every morning Active metoprolol XL (TOPROL-XL) 50 mg extended release tablet Take 1 tablet (50 mg total) by mouth every morning Active predniSONE (DELTASONE) 10 mg tablet Medrol Dose Pack 5 Active Active Problems Problem Noted Date Diagnosed Date Renal mass, right 12/07/2024 S/P cryoablation of mass of kidney 12/07/2024 Status post biopsy 12/07/2024 Paroxysmal atrial fibrillation 06/17/2023 Assessment & Plan (12/17/2024 8:13 PM CDT): Stable no clinical recurrence - cont eliquis, metop XL 50 Assessment & Plan (12/20/2023 12:07 PM CDT): Stable no clinical recurrence - cont eliquis, metop XL 50 Acute on chronic respiratory failure with hypoxi a 06/16/2023 Acute kidney injury 06/16/2023 Elevated liver enzymes 06/16/2023 Anemia 06/16/2023 COVID-19 06/16/2023 GERD (gastroesophageal reflux disease) 3 History of sarcoidosis 06/05/2023 PARDEEP on CPAP 05/11/2023 Assessment & Plan (05/11/2023 11:27 AM CDT): Severe obstructive sleep apnea. Doing well with CPAP at night, oxygen bleed in. Denies snoring, apnea, daytime sleepiness. Continue current regimen. Hypoxemia 03/16/2023 Assessment & Plan (05/11/2023 11:28 AM CDT): Physiologic differential would include ventilation-perfusion mismatch, shunt, diffusion impairment, hypoventilation Pending pulmonary function test, arterial blood gas, 6 minute walk, high- resolution chest CT. Assessment & Plan (03/16/2023 8:54 AM CDT): He is now on supplemental oxygen without a clear diagnosis. Will refer to pulmonology Chronic diastolic (congestive) heart failure Assessment & Plan (12/17/2024 8:12 PM CDT): Euvolemic. Previously normal LVEF, last ANDREA in May showed EF 40-45% - cont lasix 40 bid - check echo to see if EF recovered Assessment & Plan (12/20/2023 12:14 PM CDT): Euvolemic. Previously normal LVEF, last ANDREA in May showed EF 40-45% - cont lasix 40 bid - check echo to see if EF recovered Assessment & Plan (03/16/2023 8:54 AM CDT): By exam he appears euvolemic; I would be surprised if pure fluid overload is the etiology of his hypoxemia - continue Lasix 40 Shortness of breath 09/07/2019 Overview (09/07/2019): Added automatically from request for surgery [id number] Assessment & Plan (05/11/2023 11:28 AM CDT): Differential diagnosis of shortness of Breath includes asthma, COPD, organic heart disease, interstitial lung disease, pulmonary vascular disease, peripheral vascular disease, nerve or muscle disorders, arthritis, deconditioning, metabolic abnormalities, anemia, endocrinopathies Pending pulmonary function test, 6 minute walk Assessment & Plan (05/04/2021 10:39 AM CDT): Lungs are clear. There is no evidence of any volume overload at this time. Pinguecula of right eye 12/04/2018 Dyspnea on exertion 08/12/2018 Assessment & Plan (08/30/2019 4:04 PM SAMPLE SUPERVISOR): This has been a longstanding complaint without evidence of congestive heart failure on previous testing. Is now associated with chest discomfort, and could represent myocardial ischemia. Assessment & Plan (08/14/2018 5:45 PM SAMPLE SUPERVISOR): Continued complaints of exertional dyspnea without any objective evidence of ischemia on a diagnostic pharmacologic stress test done earlier this year or a nondiagnostic stress echo done more recently. His history of weight gain with fluid retention raises concern about congestive heart failure. Will obtain a proBNP and chest x- ray today, and will schedule him for an echo Doppler. Although his metoprolol dosage is low, it was started at the time of his bypass surgery, and could be contributing to his shortness of breath. If nothing is found on his chest x-ray, proBNP, or echo Doppler, would consider decreasing metoprolol. Investigating sleep apnea remains another consideration. 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 No active angina - continue aspirin, atorvastatin Assessment & Plan (12/19/2023 4:41 PM CDT): History of extensive Coronary artery disease status post CABG and prior PCI with chronically occluded RCA which is collateralized. No active angina - continue aspirin, atorvastatin Assessment & Plan (06/07/2023 2:50 PM CDT): History of extensive Coronary artery disease status post CABG and prior PCI with chronically occluded RCA which is collateralized. Remains without significant exertional anginal symptoms mainly just shortness of breath; did have minor troponin rise in the context of AFib with RVR which was likely demand ischemia. Would get stress test if he has any recurrent symptoms outside of AFib - continue aspirin, atorvastatin Assessment & Plan (03/16/2023 8:53 AM CDT): History of extensive Coronary artery disease status post CABG and prior PCI with chronically occluded RCA which is collateralized. Remains without significant exertional anginal symptoms mainly just shortness of breath. This could be an anginal equivalent however I am less suspicious of this given his hypoxemia - continue aspirin, atorvastatin Assessment & Plan (05/04/2022 7:05 PM CDT): History of extensive Coronary artery disease status post CABG and prior PCI with chronically occluded RCA which is collateralized. Remains without significant exertional anginal symptoms and had limited mild ischemia in RCA territory on MPI within the past year. Continue medical therapy with aspirin, Imdur, beta- mesha, atorvastatin Assessment & Plan (05/04/2021 10:38 AM CDT): History of angina consistent with his chronically occluded right coronary artery, improved with isosorbide. His mid back discomfort sounds more musculoskeletal than anginal. Continue Imdur, aspirin, and metoprolol. If any surgery is recommended I would want him to have a Lexiscan prior. Assessment & Plan (05/01/2020 11:03 AM CDT): Angina likely came from the occluded saphenous vein graft to his occluded right coronary artery and has responded well to nitrate therapy. Continue aspirin, metoprolol, and isosorbide. Assessment & Plan (11/01/2019 6:33 PM SAMPLE SUPERVISOR): On Imdur, he is not experiencing any angina. He is on a low dosage which could be increased if necessary, but there is no reason to increase it at this point. Assessment & Plan (09/03/2019 6:06 PM SAMPLE SUPERVISOR): Exertional chest pressure 4.5 years following five vessel coronary artery bypass grafting. A stress echo in July 2018 was nondiagnostic because of a low peak heart rate, but showed no ischemic abnormalities, a myocardial perfusion study on 11/07/2017 showed a fixed defect with no stress-induced ischemia. Will obtain a stress MPI to further evaluate. If he does not attain a diagnostic heart rate, can be switched to Lexiscan. Assessment & Plan (08/14/2018 5:46 PM SAMPLE SUPERVISOR): No symptoms of chest discomfort. Continue aspirin. Assessment & Plan (11/04/2017 10:06 AM SAMPLE SUPERVISOR): No symptoms of myocardial ischemia. He is nearly three years out from his bypass surgery. While the fatigue that his is noticing could be heart related, it could also be related to his interrupted sleep. Continue aspirin. Will obtain a nuclear stress test, holding metoprolol the morning of testing. Benign essential HTN 08/06/2014 Overview (12/31/2016): Benign essential hypertension Assessment & Plan (12/19/2023 4:41 PM CDT): Controlled continue current regimen Assessment & Plan (06/07/2023 2:49 PM CDT): Controlled continue current regimen Assessment & Plan (03/16/2023 8:52 AM CDT): Well controlled on current regimen which we will continue. Continue amlodipine 10, lisinopril 40 Assessment & Plan (05/04/2022 7:05 PM CDT): Well controlled on current regimen which we will continue. If ankle edema worsens we can try reducing dose of amlodipine to 5 Assessment & Plan (05/04/2021 10:38 AM CDT): Blood pressure is adequately controlled on current regimen. No change was made. Assessment & Plan (05/01/2020 11:03 AM CDT): Blood pressure is adequately controlled on current regimen. No change was made. Assessment & Plan (11/01/2019 6:34 PM SAMPLE SUPERVISOR): Blood pressure is adequately controlled on current regimen. No change was made. Assessment & Plan (08/30/2019 4:06 PM SAMPLE SUPERVISOR): Blood pressure is higher today. He says he took his medications. Will reassess his blood pressure with his stress test. Advised to improved diet Assessment & Plan (08/14/2018 5:46 PM SAMPLE SUPERVISOR): Blood pressure is adequately controlled on current regimen. No change was made. Assessment & Plan (11/04/2017 10:06 AM SAMPLE SUPERVISOR): Blood pressure is adequately controlled on current regimen. No change was made. Pure hypercholesterolemia 08/06/2014 Overview (12/31/2016): Pure hypercholesterolemia Assessment & Plan (05/04/2021 10:38 AM CDT): He is on low-dose statin therapy. He has previously not tolerated high-intensity therapy. Assessment & Plan (05/01/2020 11:03 AM CDT): He is on low intensity statin therapy intentionally because of myalgias. Assessment & Plan (11/01/2019 6:34 PM SAMPLE SUPERVISOR): On chronic lipid lowering therapy with good control. No changes made. Assessment & Plan (09/03/2019 6:06 PM SAMPLE SUPERVISOR): LDL is 109, above target. He is on only low-dose simvastatin because he developed myalgias on other statins. Assessment & Plan (08/14/2018 5:46 PM SAMPLE SUPERVISOR): On chronic lipid lowering therapy with good control. No changes made. Assessment & Plan (11/04/2017 10:06 AM SAMPLE SUPERVISOR): On chronic lipid lowering therapy with good control. No changes made. Immunizations Immunization Administration Dates Next Due Influenza, Unspecified 06/26/2020 Social History Tobacco Use Types Packs/Day Years Used Date Smoking Tobacco: Never Smokeless Tobacco: Never Tobacco Cessation:Counseling Given: Not Answered Alcohol Use Standard Drinks/Week Comments No 0 (1 standard drink = 0.6 oz pur e alcohol) Social Connection and Isolat ion Panel [NHANES] Answer Date Recorded In a typical week, how many times do you talk on the phone with family, friends, or neighbors? Three times a week 06/17/2023 How often do you get togethe r with friends or relatives? Three times a week 06/17/2023 How often do you attend chur ch or islam services? More than 4 times per year 06/17/2023 Do you belong to any clubs o r organizations such as jain groups, unions, fraternal or athletic groups, or school groups? Yes 06/17/2023 How often do you attend meet ings of the clubs or organizations you belong to? More than 4 times per year 06/17/2023 Are you , , di vorced, , never , or living with a partner? 06/17/2023 AUDIT-C Answer Date Recorded Q1: How often do you have a drink containing alcohol? Never 06/05/2023 Q2: How many drinks containi ng alcohol do you have on a typical day when you are drinking? Patient does not drink Q3: How often do you have si x or more drinks on one occasion? Never 06/05/2023 Overall Financial Resource Strain (CARDIA) Answe r Date Recorded How hard is it for you to pa y for the very basics like food, housing, medical care, and heating? Not hard at all 06/17/2023 Hunger Vital Sign Answer Date Recorded Within the past 12 months, y ou worried that your food would run out before you got the money to buy more. Never true 06/17/20 23 Within the past 12 months, t he food you bought just didn't last and you didn't have money to get more. Never true 06/17/2023 PRAPARE - Transportation Answer Date Re corded In the past 12 months, has l ack of transportation kept you from medical appointments or from getting medications? No 05/28 In the past 12 months, has l ack of transportation kept you from meetings, work, or from getting things needed for daily living? No 06/17/2023 Housing Stability Vital Sign Answer [place] e Recorded In the last 12 months, was t here a time when you were not able to pay the mortgage or rent on time? No 06/17/2023 In the last 12 months, how many places have you lived? 1 06/17/2023 In the last 12 months, was t here a time when you did not have a steady place to sleep or slept in a long-term (including now)? No 06/17/2023 Personal Safety Answer Date Recorded Have you ever been in or are you currently in a harmful physical or emotional relationship or is someone making you feel afraid or unsafe? Denies 12/07/2024 Education Answer Date Recorded What is the highest level of school you have completed or the highest degree you have received? Some college, no degree 06/06/2023 Sex and Gender Information Value Date Recorded Sex Assigned at Not on file Legal Sex Male 12:10 PM SAMPLE SUPERVISOR Gender Identity Not on file Sexual Orientation Not on file Last Filed Vital Signs Vital Sign Reading Time Taken Comments Blood Pressure 138/66 12/18/2024 12:53 PM CDT Pulse 72 12/18/2024 12:53 PM CDT Temperature 36.6 C (97.9 F) 12/08/2024 7:27 AM CDT Respiratory Rate 18 12/08/2024 7:27 AM CDT Oxygen Saturation 90% 12/18/2024 12:53 PM CDT Inhaled Oxygen Concentration - - Weight 98 kg (216 lb) 12/18/2024 12:53 PM CDT Height 177.8 cm (5' 10 ) 12/18/2024 12:53 PM CDT Body Mass Index 30.99 12/18/2024 12:53 PM CDT Plan of Treatment Not on file Goals Goal Patient Goal Type Associated Problems Recent Progress Patient-Stated? Author CCM Chronic Pain Care Plan Chronic Care Management No Sharmila Hernandez RN Note: Problem: Chronic Pain Goals: 1. Minimize further functional decline 2. Maximize quality of life 3. Control pain Strategies: - Activity/exercise program recommendation - Conservative stepwise pain medicine strategy with multi-disciplinary approach - Recommend healthy lifestyle strategies and compensatory methods as needed Reduce the likelihood of falling Lifestyle No Sharmila Hernandez, RN Note: Below are four things you can do to prevent falls: Begin an exercise program to improve your leg strength & balance Ask your doctor or pharmacist to review your medicines Get annual eye check-ups & update your eyeglasses Make your home safer by: Removing clutter & tripping hazards Putting railings on all stairs & adding grab bars in the bathroom Having good lighting, especially on stairs Contact your local community or senior center for information on exercise, fall prevention programs, or options for improving home safety. Medical Devices Implanted Type Area Creative Writing English Professor Device Identifier Shelf Expiration Date Model / Serial / Lot Other - See Comments Other - see comments Bilateral : Knee Stent Implanted:Qty : 5 Stent N/A: Heart Description:Complete at MO b ap Procedures Procedure Name Priority Date/Time Associated Diagnosis Comments EGFR Routine 12/08/2024 12:49 AM CDT DIFFERENTIAL AUTO Routine 12/08/2024 12:49 AM CDT CBC WITH AUTO DIFFERENTIAL Routine 12/08/2024 12:49 AM CDT BASIC METABOLIC PANEL Routine 12/08/2024 12:49 AM CDT CBC WITHOUT DIFFERENTIAL Timed 12/07/2024 7:52 PM CDT CBC WITHOUT DIFFERENTIAL STAT 12/07/2024 4:04 PM CDT CRYOABLATION RENAL RIGHT Schedule Routine, Read Routine (OP Routine) 12/07/2024 3:27 PM CDT Renal mass, right SURGICAL PATHOLOGY Routine 12/07/2024 2: 20 PM CDT Renal mass, right [place] AN PROCEDURE PLACEHOLDER Routine 12/07/2024 1:33 PM CDT [place] AN ELECTIVE ENDOTRACHEAL AIRWAY Routine 12/07/2024 1:33 PM CDT EGFR STAT 11/22/2024 2:46 PM SAMPLE SUPERVISOR Right renal mass Paroxysmal atrial fibrillation (HCC) Shortness of breath Hypoxemia PARDEEP on CPAP BASIC METABOLIC PANEL STAT 11/22/2024 2:46 PM SAMPLE SUPERVISOR Right renal mass Paroxysmal atrial fibrillation (HCC) Shortness of breath Hypoxemia PARDEEP on CPAP DIFFERENTIAL AUTO STAT 11/22/2024 2:3 4 PM SAMPLE SUPERVISOR Right renal mass Paroxysmal atrial fibrillation (HCC) Shortness of breath Hypoxemia PARDEEP on CPAP CBC WITH AUTO DIFFERENTIAL STAT 11/22/2024 2:34 PM SAMPLE SUPERVISOR Right renal mass Paroxysmal atrial fibrillation (HCC) Shortness of breath Hypoxemia PARDEEP on CPAP PROTIME-INR STAT 11/22/2024 2:34 PM SAMPLE SUPERVISOR Right renal mass Paroxysmal atrial fibrillation (HCC) Shortness of breath Hypoxemia PARDEEP on CPAP CONSULT TO INTERVENTIONAL RADIOLOGY Schedule Routine, Read Routine (OP Routine) 11/12/2024 3:20 PM SAMPLE SUPERVISOR Right renal mass CT BODY OUTSIDE REFERENCE Routine 10/25/2024 12:00 AM SAMPLE SUPERVISOR from Last 3 Months Results * (ABNORMAL) eGFR (12/08/2024 12:49 AM CDT) eGFR 49(L) >=60 mL/min/1. 73 m2 Comment: Interpretive Data Reference Interval Normal >/= 90 mL/min/1.73m2 Mildly decreased* 60 - 89 mL/min/1.73m2 Mildly to moderately decreased 45 - 59 mL/min/1.73m2 Moderately to severely decreased 30 - 44 mL/min/1.73m2 Severely decreased 15 - 29 mL/min/1.73m2 Kidney Failure < 15 mL/min/1.73m2 *Relative to young adult level Estimated glomerular filtration rate is determined by the 2020 CKD-EPI equation recommended by the National [employer] (A Unifying Approach to GFR Estimation: Recommendations of the NKF-ASK Task Force on Reassessing the Inclusion of Race in Diagnosing Kidney Disease, JASN 202). The CKD-EPI equation should not be used for patients with unstable renal function and has not been validated in children and those over 70. Current interpretive data was last reviewed 2021. Blood 12/08/2024 12:4 9 AM CDT 12/08/2024 1:47 AM CDT us Darvin Palmer MD LAB BLOOD ORDERABLES Final Result [facility] [address] Department [place] [address] * (ABNORMAL) Differential, auto (12/08/2024 12:49 AM CDT) Neutrophil abs 11.4(H) 1.5 - 6.5 K/cumm Imm gran abs 0.1 0.0 - 0.1 K/cumm [facility] Lymphocyte abs 1.0 0.8 - 3.3 K/cumm [facility] Monocyte abs 0.4 0.2 - 0.8 K/cumm [facility] Eosinophil abs 0.0 0.0 - 0.5 K/cumm [facility] Basophil abs 0.0 0.0 - 0.1 K/cumm [facility] Neutrophil pct 88.4 % [facility] Comment: Interpretive Data Percent cell count reference ranges are not reported, since discordance with absolute values may lead to misinterpretation of CBC data. Current Interpretive Data was last revised on 2018. Imm gran pct 0.7 % [facility] Comment: Interpretive Data Percent cell count reference ranges are not reported, since discordance with absolute values may lead to misinterpretation of CBC data. Current Interpretive Data was last revised on 2018. Lymphocyte pct 7.5 % [facility] Comment: Interpretive Data Percent cell count reference ranges are not reported, since discordance with absolute values may lead to misinterpretation of CBC data. Current Interpretive Data was last revised on 2018. Monocyte pct 3.2 % [facility] Comment: Interpretive Data Percent cell count reference ranges are not reported, since discordance with absolute values may lead to misinterpretation of CBC data. Current Interpretive Data was last revised on 2018. Eosinophil pct 0.0 % [facility] Comment: Interpretive Data Percent cell count reference ranges are not reported, since discordance with absolute values may lead to misinterpretation of CBC data. Current Interpretive Data was last revised on 2018. Basophil pct 0.2 % [facility] Comment: Interpretive Data Percent cell count reference ranges are not reported, since discordance with absolute values may lead to misinterpretation of CBC data. Current Interpretive Data was last revised on 2018. Blood 12/08/2024 12:4 9 AM CDT 12/08/2024 1:48 AM CDT Roseanna Lugo MD LAB BLOOD ORDERABLES Final Resul t Performing Organization Address [facility] Co de Phone Number [facility] [address] [place] [address] * (ABNORMAL) CBC with auto differential (12/08/2024 12:49 AM CDT) WBC 12.9(H) 3.8 - 9.9 K/cumm Hgb 12.0(L) 13.0 - 17.5 g/dL [facility] Hct 37.9(L) 38.9 - 50.3 % [facility] Plt 184 150 - 400 K/cumm [facility] MPV 12.7(H) 9.1 - 12.3 fL [facility] RBC 4.04(L) 4.30 - 5.80 M/cumm [facility] MCV 93.8 81.3 - 96.4 fL [facility] MCH 29.7 27.1 - 33.3 pg [facility] MCHC 31.7(L) 32.3 - 35.7 g/dL [facility] RDW CV 13.6 11.1 - 14.9 % [facility] RDW SD 47.6 35.7 - 48.1 fL [facility] NRBC abs 0.00 0.00 - 0.01 K/cumm [facility] Blood 12/08/2024 12:4 9 AM CDT 12/08/2024 1:48 AM CDT us Roseanna Lugo MD LAB BLOOD ORDERABLES Final Resul t Performing Organization Address City/[facility]/ZIP Co de Phone Number [facility] [address] Department [employer] [place] [address] * (ABNORMAL) Basic metabolic panel (12/08/2024 12:49 AM CDT) [facility] Sodium 137 135 - 145 mmol/L Potassium, pl 4.1 3.3 - 4.9 mmol/L [facility] Chloride 97 97 - 110 mmol/L [facility] CO2 24 22 - 32 mmol/L [facility] Anion gap 16(H) 2 - 15 mmol/L [facility] BUN 22 6 - 25 mg/dL [facility] Creatinine 1.42(H) 0.80 - 1.30 mg/dL [facility] Glucose 178 70 - 199 mg/dL [facility] Comment: Interpretive Data Fasting glucose >/= 126 mg/dl is diagnostic for diabetes. Fasting is defined as no caloric intake for at least 8 hours. Fasting glucose between 100 mg/dl to 125 mg/dl is diagnostic of prediabetes. In a patient with classic symptoms of hyperglycemia or hyperglycemic crisis, a random glucose >/= 200 mg/dl is diagnostic for diabetes. In the absence of unequivocal hyperglycemia, results should be confirmed by repeat testing. The classification and Diagnosis of Diabetes Diabetes Care 2021; 46: S19-S40. Current interpretive data was last revised 2022. Calcium 8.7 8.5 - 10.3 mg/dL [facility] Blood 12/08/2024 12:4 9 AM CDT 12/08/2024 1:47 AM CDT Darvin Palmer MD LAB BLOOD ORDERABLES Final Result [facility] [address] Department [place] [address] * (ABNORMAL) CBC without differential (12/07/2024 7:52 PM CDT) [facility] WBC 12.4(H) 3.8 - 9.9 K/cumm Hgb 12.5(L) 13.0 - 17.5 g/dL [facility] Hct 39.2 38.9 - 50.3 % [facility] Plt 192 150 - 400 K/cumm [facility] MPV 12.5(H) 9.1 - 12.3 fL [facility] RBC 4.18(L) 4.30 - 5.80 M/cumm [facility] MCV 93.8 81.3 - 96.4 fL [facility] MCH 29.9 27.1 - 33.3 pg [facility] MCHC 31.9(L) 32.3 - 35.7 g/dL [facility] RDW CV 13.8 11.1 - 14.9 % [facility] RDW SD 46.9 35.7 - 48.1 fL [facility] NRBC abs 0.00 0.00 - 0.01 K/cumm [facility] Blood 12/07/2024 7:52 PM CDT 12/07/2024 8:00 PM CDT Roseanna Lugo MD LAB BLOOD ORDERABLES Final Resul t [facility] [address] Department [place] [address] * (ABNORMAL) CBC without differential (12/07/2024 4:04 PM CDT) WBC 8.9 3.8 - 9.9 K/cumm Hgb 11.9(L) 13.0 - 17.5 g/dL [facility] Hct 37.1(L) 38.9 - 50.3 % [facility] Plt 156 150 - 400 K/cumm [facility] MPV 12.6(H) 9.1 - 12.3 fL [facility] RBC 3.92(L) 4.30 - 5.80 M/cumm [facility] MCV 94.6 81.3 - 96.4 fL [facility] MCH 30.4 27.1 - 33.3 pg [facility] MCHC 32.1(L) 32.3 - 35.7 g/dL [facility] RDW CV 13.8 11.1 - 14.9 % [facility] RDW SD 47.8 35.7 - 48.1 fL [facility] NRBC abs 0.00 0.00 - 0.01 K/cumm [facility] Blood 12/07/2024 4:04 PM CDT 12/07/2024 4:21 PM CDT Narrative [facility] - 12/07/2024 4:28 PM CDT 6 Hours post procedure. us Darvin Palmer MD LAB BLOOD ORDERABLES Final Result [facility] [address] Department [place] [address] * IR Cryoablation Renal Right (12/07/2024 3:27 PM CDT) Anatomical Region Laterality Modality Body Right Computed Tomogra phy 12/07/2024 4:00 PM CDT Impressions 12/07/2024 4:00 PM CDT Successful percutaneous cryoablation of right renal mass.. PLAN: The patient will follow up with renal CT in 3 months to assess tumor response to therapy. Electronically signed by: Darvin Palmer M.D. Narrative 12/07/2024 4:00 PM CDT EXAMINATION: CT-GUIDED PERCUTANEOUS CRYOABLATION OF RIGHT KIDNEY TUMOR HISTORY/INDICATION: 84year old male with incidentally noted 3.2 cm exophytic right renal mass concerning for renal cell carcinoma presenting for cryoablation. ATTENDING PRESENCE: Darvin Palmer M.D., the attending radiologist was present from the beginning to the end of the procedure. SEDATION: The procedure was done under General Anesthesia. TECHNIQUE: The risks, benefits and alternatives were discussed and informed consent was obtained. Prior to beginning the procedure, [place] Protocol was performed to confirm the patient?s identity and the planned procedure. For procedures that utilize fluoroscopy, the fluoroscopy time has been recorded in the electronic medical record. Maximum sterile barriers including cap, mask, hand hygiene, sterile gloves, sterile gown, large sterile drape and 2% chlorhexidine for cutaneous antisepsis were used. The patient was placed in the prone position on the CT table and an initial scan of the kidneys was performed and the patient?s known tumor was localized. An appropriate access site was localized and the overlying skin was infiltrated with 1% lidocaine. A total of three core biopsies were obtained from the intended target. The biopsy samples were placed in formalin. Needle(s) utilized: Coaxial outer needle: 17-gauge Core Biopsy Needle: 18 gauge Bard Merrick [address] guidance, 2 IceRod cryoprobe was placed in the right posterior renal mass under intermittent imaging guidance. Additionally a biopsy device was placed adjacent to the described cryoprobe and 5 core needle samples were obtained of the target site. The samples were placed in formalin. Cryoablation was then performed for 10 minutes at temperatures below -40 degrees Celsius with imaging obtained at the 5 minutes and 10 joy. Imaging showed appropriate formation of an ice ball around the tumor. Following an 5 minutes active thaw, cryoablation was repeated for an additional 10 minutes with repeated imaging at the 5, 8 and 10 joy demonstrating appropriate ice ball formation. Following 5 minutes of active thaw, the Cryoprobes were removed with temperatures measuring greater than 20 degrees Celsius. Tract ablation was performed in 2 stations. The cryoablation probe was removed at the end of the procedure. Final CT imaging demonstrated complete encasement of the organ tumor by the ice ball. No complications were seen. Contrast-enhanced CT scan during the procedure and after the procedure did not demonstrate any concern for bleeding, and complete coverage of the ice ball for the lesion and lack of enhancement of the lesion. Throughout the procedure the patient's vital signs remained stable. ESTIMATED BLOOD LOSS: Minimal CONDITION: Stable condition DISCHARGED TO: patient care division. FINDINGS: Initial CT images redemonstrate the right renal mass, which is centrally necrotic. Procedural images demonstrate appropriate positioning of the ablation probes within the cephalad and caudal aspects of the mass. The biopsy introducer is appropriately positioned at the margin of the mass. Following biopsy there is appropriate intra and perilesional gas. The images obtained during ablation show appropriate encasement of the mass by the ice ball. Final images demonstrate the entirety of the mass to be encased by the ice ball with no evidence of immediate complications. Procedure Note Darvin Palmer MD - 12/07/2024 EXAMINATION: CT-GUIDED PERCUTANEOUS CRYOABLATION OF RIGHT KIDNEY TUMOR HISTORY/INDICATION: 84year old male with incidentally noted 3.2 cm exophytic right renal mass concerning for renal cell carcinoma presenting for cryoablation. ATTENDING PRESENCE: Darvin Palmer M.D., the attending radiologist was present from the beginning to the end of the procedure. SEDATION: The procedure was done under General Anesthesia. TECHNIQUE: The risks, benefits and alternatives were discussed and informed consent was obtained. Prior to beginning the procedure, [place] Protocol was performed to confirm the patient?s identity and the planned procedure. For procedures that utilize fluoroscopy, the fluoroscopy time has been recorded in the electronic medical record. Maximum sterile barriers including cap, mask, hand hygiene, sterile gloves, sterile gown, large sterile drape and 2% chlorhexidine for cutaneous antisepsis were used. The patient was placed in the prone position on the CT table and an initial scan of the kidneys was performed and the patient?s known tumor was localized. An appropriate access site was localized and the overlying skin was infiltrated with 1% lidocaine. A total of three core biopsies were obtained from the intended target. The biopsy samples were placed in formalin. Needle(s) utilized: Coaxial outer needle: 17-gauge Core Biopsy Needle: 18 gauge Bard Merrick [address] guidance, 2 IceRod cryoprobe was placed in the right posterior renal mass under intermittent imaging guidance. Additionally a biopsy device was placed adjacent to the described cryoprobe and 5 core needle samples were obtained of the target site. The samples were placed in formalin. Cryoablation was then performed for 10 minutes at temperatures below -40 degrees Celsius with imaging obtained at the 5 minutes and 10 joy. Imaging showed appropriate formation of an ice ball around the tumor. Following an 5 minutes active thaw, cryoablation was repeated for an additional 10 minutes with repeated imaging at the 5, 8 and 10 joy demonstrating appropriate ice ball formation. Following 5 minutes of active thaw, the Cryoprobes were removed with temperatures measuring greater than 20 degrees Celsius. Tract ablation was performed in 2 stations. The cryoablation probe was removed at the end of the procedure. Final CT imaging demonstrated complete encasement of the organ tumor by the ice ball. No complications were seen. Contrast-enhanced CT scan during the procedure and after the procedure did not demonstrate any concern for bleeding, and complete coverage of the ice ball for the lesion and lack of enhancement of the lesion. Throughout the procedure the patient's vital signs remained stable. ESTIMATED BLOOD LOSS: Minimal CONDITION: Stable condition DISCHARGED TO: patient care division. FINDINGS: Initial CT images redemonstrate the right renal mass, which is centrally necrotic. Procedural images demonstrate appropriate positioning of the ablation probes within the cephalad and caudal aspects of the mass. The biopsy introducer is appropriately positioned at the margin of the mass. Following biopsy there is appropriate intra and perilesional gas. The images obtained during ablation show appropriate encasement of the mass by the ice ball. Final images demonstrate the entirety of the mass to be encased by the ice ball with no evidence of immediate complications. IMPRESSION: Successful percutaneous cryoablation of right renal mass.. PLAN: The patient will follow up with renal CT in 3 months to assess tumor response to therapy. Electronically signed by: Darvin Palmer M.D. Darvin Palmer MD IMG IR PROCEDURES Final Re sult * Surgical pathology (12/07/2024 2:20 PM CDT) Tissue (Kidney biopsy, tumor/mass) 12/07/2024 2:20 PM CDT Narrative PATHOLOGY [facility] - 12/10/2024 5:01 PM CDT [address] [address] Tele: Maggi Roque MD - [employer]er Note to Patients: This report may contain a detailed description of human tissue sent by a health care provider to the laboratory for pathologic evaluation. The content of this report is essential for diagnosis and may provide important critical findings. This information may be unfamiliar to patients to review without a medical professional present. It is advised that the patient review this report in the presence of a health care provider who can answer questions and explain the details. SURGICAL PATHOLOGY REPORT Patient Name: JUAN WILKERSON Address: [address] [place] [id number] Gender: M : 1940 (Age: 84) Service: Medical Location: [place] [address], Hospital #: [id number] Patient Type: [facility] IN BED Taken: 12/07/2024 Received 12/07/2024 Reported: 12/10/2024 Physician(s): Darvin Palmer M.D. 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 Report Reviewed and Electronically Signed By Shay Cruz M.D. SPECIMEN TYPE: A: RIGHT RENAL MASS CLINICAL IMPRESSION AND HISTORY: Right renal mass GROSS DESCRIPTION: Received in formalin in a single container with the patient's name, JUAN WILKERSON labeled right renal mass and contains are multiple pink-red cores of tissue ranging from 0.3 cm to 1 cm. Due to the color and size of the specimen, eosin is used. The specimen is filtered and submitted entirely in cassette A1. [facility] MICROSCOPIC DESCRIPTION: Microscopic examination shows solid nests of malignant cells with clear to eosinophilic cytoplasm as well as areas of necrosis. Immunohistochemical stains were performed for further evaluation. The tumor cells are strongly positive for PAX8, CA IX, and vimentin. They are focally positive for CD10. They are negative for CK7 and CD117. The findings are consistent with clear cell renal cell carcinoma. Clerical Data Follows A; 96712, 52063, 35468(5) REPORT IMAGES AND/OR SCANNED DOCUMENTS ONLY VIEWABLE IN PDF FORMAT The immunohistochemical test(s) cited in this report, if any, was developed and its performance characteristics determined by [facility] Pathology Department. It has not been cleared or approved by the U.S. Food and Drug Administration. The FDA has determined that such clearance or approval is not necessary. This test is used for clinical purposes. It should not be regarded as investigational or for research. [facility] is certified under the Clinical Laboratory Improvement Amendments of 1988 (CLIA) as qualified to perform high complexity testing. Immunostains were performed on formalin-fixed paraffin embedded tissue using a polymer diaminobenzidine chromogen detection system. Antibodies used may include clone SP1 (rabbit monoclonal, estrogen receptor), clone 1E2 (rabbit monoclonal progesterone receptor), Ki-67 (rabbit monoclonal, 30-9), CD117 (rabbit polyclonal, c-kit), and anti-Her-2/maxine (4B5) (rabbit monoclonal primary antibody). In the event that immunohistochemistry or special stains have been performed, attending physician has confirmed appropriateness of controls. Frozen section, operating room consultation, gross examination and dissection, and case sign out may have been performed in part or completely in the following laboratories: [facility], [address] [facility], [place] [address] [facility], [address] [facility], [place] [address]. Darvin Palmer MD LAB PATHOLOGY ORDERABLES F inal Result PATHOLOGY [facility] Laboratory Receiving [address] [place] [address] * [place] AN ELECTIVE ENDOTRACHEAL AIRWAY, [place] AN PROCEDURE PLACEHOLDER (12/07/2024 1:33 PM CDT) Narrative Lyndsey Coto CRNA - 12/07/2024 1:33 PM CDT Lyndsey Coto CRNA 12/07/2024 1:34 PM Airway Patient location: OR Urgency: elective Indications for airway management: anesthesia Difficult airway: no Staff: Placed by: SUPERVISOR STONE: Lyndsey Coto CRNA Emergent airway documentation: Risks and benefits discussed: yes Consent obtained: yes Consent given by: patient Airway prep: Preoxygenated: yes Patient position: sniffing Mask difficulty assessment: 0 - not attempted Sedation level during airway: GA Final airway details: Final airway type: endotracheal airway Tube type: ETT ETT size: 7.0 mm Cuffed: yes Technique used for successful ETT placement: video laryngoscopy Devices/Methods used in placement: intubating stylet Insertion site: oral Blade type: Claude Video blade type: Olivo Blade size: 4 Cormack-Lehane (video): grade I - full view of glottis Cuff volume: 7 mL Cuff inflated with: air ETT to teeth: 23 cm Placement verified by: auscultation and CO2 detection Airway secured with: silk tape Number of attempts: 1 Additional comments: Atraumatic - lips, gums, teeth as preop us Gee Montemayor MD ANESTHESIA ORDERABLES Fi nal Result * (ABNORMAL) eGFR (11/22/2024 2:46 PM SAMPLE SUPERVISOR) eGFR 57(L) >=60 mL/min/1. 73 m2 Comment: Interpretive Data Reference Interval Normal >/= 90 mL/min/1.73m2 Mildly decreased* 60 - 89 mL/min/1.73m2 Mildly to moderately decreased 45 - 59 mL/min/1.73m2 Moderately to severely decreased 30 - 44 mL/min/1.73m2 Severely decreased 15 - 29 mL/min/1.73m2 Kidney Failure < 15 mL/min/1.73m2 *Relative to young adult level Estimated glomerular filtration rate is determined by the 2020 CKD-EPI equation recommended by the National Kidney Foundation (A Unifying Approach to GFR Estimation: Recommendations of the NKF-ASK Task Force on Reassessing the Inclusion of Race in Diagnosing Kidney Disease, JASN 2020). The CKD-EPI equation should not be used for patients with unstable renal function and has not been validated in children and those over 70. Current interpretive data was last reviewed 2021. Blood 11/22/2024 2:46 PM SAMPLE SUPERVISOR 11/22/2024 2:46 PM SAMPLE SUPERVISOR us Darvin Palmer MD LAB BLOOD ORDERABLES Final Result [facility] [address] Department [place] [address] * Basic metabolic panel (11/22/2024 2:46 PM SAMPLE SUPERVISOR) Sodium 141 135 - 145 mmol/L Potassium, pl 3.3 3.3 - 4.9 mmol/L [facility] Chloride 100 97 - 110 mmol/L [facility] CO2 27 22 - 32 mmol/L [facility] Anion gap 14 2 - 15 mmol/L [facility] BUN 22 6 - 25 mg/dL [facility] Creatinine 1.24 0.80 - 1.30 mg/dL [facility] Glucose 108 70 - 199 mg/dL [facility] Comment: Interpretive Data Fasting glucose >/= 126 mg/dl is diagnostic for diabetes. Fasting is defined as no caloric intake for at least 8 hours. Fasting glucose between 100 mg/dl to 125 mg/dl is diagnostic of prediabetes. In a patient with classic symptoms of hyperglycemia or hyperglycemic crisis, a random glucose >/= 200 mg/dl is diagnostic for diabetes. In the absence of unequivocal hyperglycemia, results should be confirmed by repeat testing. The classification and Diagnosis of Diabetes Diabetes Care 202; 46: S19-S40. Current interpretive data was last revised 2022. Calcium 8.6 8.5 - 10.3 mg/dL [facility] Blood 11/22/2024 2:46 PM SAMPLE SUPERVISOR 11/22/2024 2:46 PM SAMPLE SUPERVISOR us Darvin Palmer MD LAB BLOOD ORDERABLES Final Result [facility] [address] Department [place] [address] * (ABNORMAL) Differential, auto (11/22/2024 2:34 PM SAMPLE SUPERVISOR) Neutrophil abs 3.1 1.5 - 6.5 K/cumm Imm gran abs 0.0 0.0 - 0.1 K/cumm [facility] Lymphocyte abs 1.8 0.8 - 3.3 K/cumm [facility] Monocyte abs 0.9(H) 0.2 - 0.8 K/cumm [facility] Eosinophil abs 0.2 0.0 - 0.5 K/cumm [facility] Basophil abs 0.0 0.0 - 0.1 K/cumm [facility] Neutrophil pct 50.7 % [facility] Comment: Interpretive Data Percent cell count reference ranges are not reported, since discordance with absolute values may lead to misinterpretation of CBC data. Current Interpretive Data was last revised on 2018. Imm gran pct 0.5 % [facility] Comment: Interpretive Data Percent cell count reference ranges are not reported, since discordance with absolute values may lead to misinterpretation of CBC data. Current Interpretive Data was last revised on 2018. Lymphocyte pct 29.5 % [facility] Comment: Interpretive Data Percent cell count reference ranges are not reported, since discordance with absolute values may lead to misinterpretation of CBC data. Current Interpretive Data was last revised on 2018. Monocyte pct 15.3 % [facility] Comment: Interpretive Data Percent cell count reference ranges are not reported, since discordance with absolute values may lead to misinterpretation of CBC data. Current Interpretive Data was last revised on 2018. Eosinophil pct 3.5 % [facility] Comment: Interpretive Data Percent cell count reference ranges are not reported, since discordance with absolute values may lead to misinterpretation of CBC data. Current Interpretive Data was last revised on 2018. Basophil pct 0.5 % [facility] Comment: Interpretive Data Percent cell count reference ranges are not reported, since discordance with absolute values may lead to misinterpretation of CBC data. Current Interpretive Data was last revised on 2018. Blood 11/22/2024 2:34 PM SAMPLE SUPERVISOR 11/22/2024 2:34 PM SAMPLE SUPERVISOR us Darvin Palmer MD LAB BLOOD ORDERABLES Final Result [facility] [address] Department [place] [address] * (ABNORMAL) CBC with auto differential (11/22/2024 2:34 PM SAMPLE SUPERVISOR) WBC 6.0 3.8 - 9.9 K/cumm Hgb 12.0(L) 13.0 - 17.5 g/dL [facility] Hct 37.7(L) 38.9 - 50.3 % [facility] Plt 174 150 - 400 K/cumm [facility] MPV 12.9(H) 9.1 - 12.3 fL [facility] RBC 4.05(L) 4.30 - 5.80 M/cumm [facility] MCV 93.1 81.3 - 96.4 fL [facility] MCH 29.6 27.1 - 33.3 pg [facility] MCHC 31.8(L) 32.3 - 35.7 g/dL [facility] RDW CV 13.5 11.1 - 14.9 % [facility] RDW SD 46.1 35.7 - 48.1 fL [facility] NRBC abs 0.00 0.00 - 0.01 K/cumm [facility] Blood 11/22/2024 2:34 PM SAMPLE SUPERVISOR 11/22/2024 2:34 PM SAMPLE SUPERVISOR Darvin Palmer MD LAB BLOOD ORDERABLES Final Result Performing Organization Address [facility] Co de Phone Number [facility] [address] [facility] [place] [address] * (ABNORMAL) Protime-INR (11/22/2024 2:34 PM SAMPLE SUPERVISOR) PT 14.6(H) 9.7 - 13.0 sec INR 1.34(H) 0.90 - 1.20 [facility] Comment: Interpretive data Oral anticoagulant therapeutic ranges: Venous thromboembolism prophylaxis or treatment: 2.0-3.0 CARDIOLOGY Standard range: 2.0-3.0 High-intensity range: 2.5-3.5 Refer to indication-specific guidelines for appropriate target ranges for prosthetic heart valve replacement. Current interpretive data was last revised on 2019. Blood 11/22/2024 2:34 PM SAMPLE SUPERVISOR 11/22/2024 2:34 PM SAMPLE SUPERVISOR Darvin Palmer MD LAB BLOOD ORDERABLES Final Result Performing Organization Address City/[facility] Co de Phone Number [facility] [address] [place] [address] * Consult to Interventional Radiology (11/12/2024 3:20 PM SAMPLE SUPERVISOR) Anatomical Region Laterality Modality N/A X-Ray Angiograph y 11/12/2024 4:14 PM SAMPLE SUPERVISOR Impressions 11/12/2024 4:14 PM SAMPLE SUPERVISOR Percutaneous cryoablation of the right renal mass is discussed with the patient who is a good candidate for it. Complete details regarding this office visit can be found in [facility] under the Notes tab. Electronically signed by: Darvin Palmer M.D. Narrative 11/12/2024 4:14 PM SAMPLE SUPERVISOR EXAMINATION: [facility] INTER[facility] RADIOLOGY CLINIC VISIT HISTORY: 84-year-old male patient with a right renal mass. He is a very good candidate for percutaneous ablation Procedure Note Darvin Palmer MD - 11/12/2024 EXAMINATION: [facility] VISIT HISTORY: 84-year-old male patient with a right renal mass. He is a very good candidate for percutaneous ablation IMPRESSION: Percutaneous cryoablation of the right renal mass is discussed with the patient who is a good candidate for it. Complete details regarding this office visit can be found in [facility] under the Notes tab. Electronically signed by: Darvin Palmer M.D. Bryan Beckham MD IMG IR PROCEDURES Final Result * CT Body Outside Reference (10/25/2024 12:00 AM SAMPLE SUPERVISOR) Narrative RAD_PACS_OUTSIDE_FILM_MB - 11/01/2024 9:16 AM SAMPLE SUPERVISOR This order has been auto-finalized and does not contain a result. Provider Transcribed Order IMG CT PROCEDURES Fin al Result RAD_PACS_OUTSIDE_FILM_[facility] from Last 3 Months Insurance MEDICARE [facility] MEDICARE [facility] MED[employer]ARE [employer] Advance Directives For more information, please contact: [phone] * Full Code (Latest Code Status on File) Date Activated Date Inactivated Comments 12/07/2024 5:08 PM 12/08/2024 5:50 PM * Full Code Date Activated Date Inactivated Comments 12/07/2024 5:04 PM 12/07/2024 5:08 PM * Full Code Date Activated Date Inactivated Comments 06/16/2023 5:29 PM 06/22/2023 7:19 PM * Full Code Date Activated Date Inactivated Comments 06/06/2023 4:36 AM 06/06/2023 7:37 PM * LIMITED - No CPR Date Activated Date Inactivated Comments 06/05/2023 6:28 PM 06/06/2023 4:36 AM Care Teams Special Education Supervisor Relationship Specialty Start Date End Date Gray Lewis MD [address] [place] [address] PCP - General 09/05/13 Yoel Siu MD [address] [facility] [address] [place] [address] Consulting Physician Cardiovascular Disease 06/06/23
--- OUTSIDE RECORDS SUMMARY | 2024-12-24 15:38 | XMS_ITS | Clinical Summary ---
Author Organization [facility] Address [facility] [place] [address] Care Team Providers Care Ammonium Nitrate Neutralizer Name Role Phone Gray Lewis MD Primary Care Provider [phone] Allergies Active Allergy Reactions Criticality Noted Date Comments Diclofenac Other (see comment) 06/18/2020 Iodine Other (see comment) 06/18/2020 Hives in large doses Penicillins Other (see comment) 06/18/2020 rash Quinolones Other (see comment) 06/18/2020 Reaction: Unknown, , , Sulfa Antibiotics Other (see comment) 0 Reaction: Unknown, , Trimethoprim Other (see comment) 06/18/2020 Medications Multiple Vitamin (MULTIVITAMIN) capsule Take 1 capsule by mouth daily. Active probenecid 500 MG tablet Take 500 mg by mouth daily. Active lisinopril 40 MG tablet Take 1 tablet by mouth 2 (two) times a day. 0 Active metoprolol tartrate 25 MG tablet Take 12.5 mg by mouth 2 (two) times daily. 0 Active terazosin 5 MG capsule Take 1 capsule by mouth nightly. 0 Active omeprazole 40 MG capsule Take 1 capsule by mouth nightly. 0 Active isosorbide mononitrate ER 30 MG 24 hr tablet Take 1 tablet by mouth daily. 0 Active furosemide 40 MG tablet Take 80 mg by mouth daily. 0 Active levothyroxine 50 MCG tablet Take 50 mcg by mouth daily. 0 Active CLEAR-ATADINE 10 MG tablet Take 1 tablet by mouth 2 (two) times daily as needed. Prior to procedures requiring iodine 9 Active testosterone cypionate (DEPO-TESTOSTERO NE) 200 MG/ML injection Inject 200 mg into the muscle every 21 days. 9 Active glucosamine-joe droitin 500-400 MG Cap Take 1 capsule by mouth daily. Active aspirin EC 81 MG tablet Resume in five days 1 tablet 0 Active Family History Medical History Relation Comments Diabetes Father Heart Disease Father Cancer Mother Relation Status Comments Father (Age 77) diabetes and h eart Mother (Age 52) cancer Son Alive Social History Tobacco Use Types Packs/Day Years [...] Sign Reading Time Taken Comments Blood Pressure 117/67 06/24/2020 5:15 PM CDT Pulse 90 06/24/2020 5:15 PM CDT Temperature 36.6 C (97.8 F) 06/24/2020 5:15 PM CDT Respiratory Rate 16 06/24/2020 5:15 PM CDT Oxygen Saturation 92% 06/24/2020 5:15 PM CDT Inhaled Oxygen Concentration - - Weight 94.3 kg (207 lb 14.3 oz) 06/24/2020 1:15 PM CDT Height 175.3 cm (5' 9 ) 06/24/2020 1:15 PM CDT Body Mass Index 30.7 06/24/2020 1:15 PM CDT Plan of Treatment Health Maintenance Due Date Last Done Comments DTaP, Tdap and Td Vaccines ( 1 - Tdap) 1959 Zoster Vaccines (1 of 2) 1990 Annual Medicare Wellness Visit 2005 Pneumococcal Vaccine: 65+ Ye ars (1 of 1 - PCV) 2005 RSV Immunization or 60+ Years (1 - 1-dose 75+ series) 2015 COVID-19 Vaccine (2023-2 5 season) 2024 Meningococcal B Vaccine Aged Out No l onger eligible based on patient's age to complete this topic Meningococcal Vaccine Aged Out No hilda geo eligible based on patient's age to complete this topic RSV Immunizations Under 20 Months Aged Out No longer eligible based on patient's age to complete this topic Insurance MEDICARE [facility] Care Teams Ammonium Nitrate Neutralizer Relationship Specialty Start Date End Date Gray Lewis MD [address] [address] PCP - General FAMILY PRACTICE 06/17/20
--- OUTSIDE RECORDS SUMMARY | 2024-12-24 15:38 | XMS_ITS ---
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 Report Reviewed and Electronically Signed By Shay Cruz M.D. SPECIMEN TYPE: A: RIGHT RENAL MASS CLINICAL IMPRESSION AND HISTORY: Right renal mass GROSS DESCRIPTION: Received in formalin in a single container with the patient's name, JUAN AGRAWAL labeled right renal mass and contains are multiple pink-red cores of tissue ranging from 0.3 cm to 1 cm. Due to the color and size of the specimen, eosin is used. The specimen is filtered and submitted entirely in cassette A1. [facility] MICROSCOPIC DESCRIPTION: Microscopic examination shows solid [...] renal cell carcinoma. Clerical Data Follows A; 41151, [id number], 17093(5) REPORT IMAGES AND/OR SCANNED DOCUMENTS ONLY VIEWABLE IN PDF FORMAT The immunohistochemical test(s) cited in this report, if any, was developed and its performance characteristics determined by [facility] Pathology Department. It has not been cleared or approved by the U.S. Food and Drug Administration. The FDA has determined that such clearance or approval is not necessary. This test is used for clinical purposes. It should not be regarded as investigational or for research. [facility] Laboratory is certified under the Clinical Laboratory [...] part or completely in the following laboratories: [facility], [address] [facility], [place] [address] [facility], [address], [place] [address]. us Darvin Palmer MD LAB PATHOLOGY ORDERABLES F inal Result PATHOLOGY [facility] Laboratory Receiving [address], [place] [id number] * PA AN ELECTIVE ENDOTRACHEAL AIRWAY, PA AN PROCEDURE PLACEHOLDER (12/07/2024 1:33 PM CDT) Narrative Lyndsey Coto CRNA - 12/07/2024 1:33 PM CDT Lyndsey Coto CRNA 12/07/2024 1:34 PM Airway Patient location: OR Urgency: elective Indications for airway management: anesthesia Difficult airway: no Staff: Placed by: SPECIAL PROCEDURES TECH: Lyndsey Coto CRNA Emergent airway documentation: Risks [...] Result * (ABNORMAL) eGFR (11/22/2024 2:46 PM DESIGN PRINTING MACHINE SETTER) eGFR 57(L) >=60 mL/min/1. 73 m2 Comment: [...] last reviewed 2021. Blood 11/22/2024 2:46 PM DESIGN PRINTING MACHINE SETTER 11/22/2024 2:46 PM DESIGN PRINTING MACHINE SETTER Darvin Palmer MD LAB BLOOD ORDERABLES Final Result [facility] [address] Department [place] [address] * Basic metabolic panel (11/22/2024 2:46 PM DESIGN PRINTING MACHINE SETTER) Sodium 141 135 - 145 mmol/L Potassium, pl 3.3 3.3 - 4.9 mmol/L [facility] Chloride 100 97 - 110 mmol/L [facility] CO2 27 22 - 32 mmol/L [facility] Anion gap 14 2 - 15 mmol/L [facility] BUN 22 6 - 25 mg/dL [facility] Creatinine 1.24 0.80 - 1.30 mg/dL [facility] Glucose 108 70 - 199 mg/dL [facility] Comment: Interpretive Data Fasting glucose [...] 2022. Calcium 8.6 8.5 - 10.3 mg/dL [facility] Blood 11/22/2024 2:46 PM DESIGN PRINTING MACHINE SETTER 11/22/2024 2:46 PM DESIGN PRINTING MACHINE SETTER Darvin Palmer MD LAB BLOOD ORDERABLES Final Result [facility] [address] Department [place] [address] * (ABNORMAL) Differential, auto (11/22/2024 2:34 PM DESIGN PRINTING MACHINE SETTER) Neutrophil abs 3.1 1.5 - 6.5 K/cumm Imm gran abs 0.0 0.0 - 0.1 K/cumm [facility] Lymphocyte abs 1.8 0.8 - 3.3 K/cumm [facility] Monocyte abs 0.9(H) 0.2 - 0.8 K/cumm [facility] Eosinophil abs 0.2 0.0 - 0.5 K/cumm [facility] Basophil abs 0.0 0.0 - 0.1 K/cumm [facility] Neutrophil pct 50.7 % [facility] Comment: Interpretive Data Percent cell count reference ranges are not reported, since discordance with absolute values may lead to misinterpretation of CBC data. Current Interpretive Data was last revised on 2018. Imm gran pct 0.5 % [facility] Comment: Interpretive Data Percent cell count reference ranges are not reported, since discordance with absolute values may lead to misinterpretation of CBC data. Current Interpretive Data was last revised on 2018. Lymphocyte pct 29.5 % [facility] Comment: Interpretive Data Percent cell count reference ranges are not reported, since discordance with absolute values may lead to misinterpretation of CBC data. Current Interpretive Data was last revised on 2018. Monocyte pct 15.3 % [facility] Comment: Interpretive Data Percent cell count reference ranges are not reported, since discordance with absolute values may lead to misinterpretation of CBC data. Current Interpretive Data was last revised on 2018. Eosinophil pct 3.5 % [facility] Comment: Interpretive Data Percent cell count reference ranges are not reported, since discordance with absolute values may lead to misinterpretation of CBC data. Current Interpretive Data was last revised on 2018. Basophil pct 0.5 % [facility] Comment: Interpretive Data Percent cell count reference ranges are not reported, since discordance with absolute values may lead to misinterpretation of CBC data. Current Interpretive Data was last revised on 2018. Blood 11/22/2024 2:34 PM DESIGN PRINTING MACHINE SETTER 11/22/2024 2:34 PM DESIGN PRINTING MACHINE SETTER us Darvin Palmer MD LAB BLOOD ORDERABLES Final Result [facility] [address] Department [place] [address] * (ABNORMAL) CBC with auto differential (11/22/2024 2:34 PM DESIGN PRINTING MACHINE SETTER) WBC 6.0 3.8 - 9.9 K/cumm Hgb 12.0(L) 13.0 - 17.5 g/dL [facility] Hct 37.7(L) 38.9 - 50.3 % [facility] Plt 174 150 - 400 K/cumm [facility] MPV 12.9(H) 9.1 - 12.3 fL [facility] RBC 4.05(L) 4.30 - 5.80 M/cumm [facility] MCV 93.1 81.3 - 96.4 fL [facility] MCH 29.6 27.1 - 33.3 pg [facility] MCHC 31.8(L) 32.3 - 35.7 g/dL [facility] RDW CV 13.5 11.1 - 14.9 % [facility] RDW SD 46.1 35.7 - 48.1 fL [facility] NRBC abs 0.00 0.00 - 0.01 K/cumm [facility] Blood 11/22/2024 2:34 PM DESIGN PRINTING MACHINE SETTER 11/22/2024 2:34 PM DESIGN PRINTING MACHINE SETTER us Darvin Palmer MD LAB BLOOD ORDERABLES Final Result Performing Organization Address [facility] Co de Phone Number [facility] [address] [place] [address] * (ABNORMAL) Protime-INR (11/22/2024 2:34 PM DESIGN PRINTING MACHINE SETTER) PT 14.6(H) 9.7 - 13.0 sec INR 1.34(H) 0.90 - 1.20 [facility] Comment: Interpretive data Oral anticoagulant therapeutic ranges: Venous thromboembolism prophylaxis or treatment: 2.0-3.0 CARDIOLOGY Standard range: 2.0-3.0 High-intensity range: 2.5-3.5 Refer to indication-specific guidelines for appropriate target ranges for prosthetic heart valve replacement. Current interpretive data was last revised on 2019. Blood 11/22/2024 2:34 PM DESIGN PRINTING MACHINE SETTER 11/22/2024 2:34 PM DESIGN PRINTING MACHINE SETTER us Darvin Palmer MD LAB BLOOD ORDERABLES Final Result Performing Organization Address [facility] Co de Phone Number [facility] [address] Department [place] [address] * Consult to Interventional Radiology (11/12/2024 3:20 PM DESIGN PRINTING MACHINE SETTER) Anatomical Region Laterality Modality N/A X-Ray Angiograph y 11/12/2024 4:14 PM DESIGN PRINTING MACHINE SETTER Impressions 11/12/2024 4:14 PM DESIGN PRINTING MACHINE SETTER Percutaneous cryoablation of the right renal mass is discussed with the patient who is a good candidate for it. Complete details regarding this office visit can be found in [facility] under the Notes tab. Electronically signed by: Darvin Palmer M.D. Narrative 11/12/2024 4:14 PM DESIGN PRINTING MACHINE SETTER EXAMINATION: [facility] INTERVENTIONAL RADIOLOGY CLINIC VISIT HISTORY: 84-year-old male patient with a right renal mass. He is a very good candidate for percutaneous ablation Procedure Note Darvin Palmer MD - 11/12/2024 EXAMINATION: [facility] INTERVENT[facility]AL RADIOLOGY CLINIC VISIT HISTORY: 84-year-old [...] CT Body Outside Reference (10/25/2024 12:00 AM DESIGN PRINTING MACHINE SETTER) Narrative RAD_PACS_OUTSIDE_FILM_[facility] - 11/01/2024 9:16 AM DESIGN PRINTING MACHINE SETTER This order has been auto-finalized and does not contain a result. us Provider Transcribed Order IMG CT PROCEDURES Fin al Result RAD_PACS_OUTSIDE_FILM_[facility] from Last 3 [place] [address] [facility] MEDICARE [employer] Advance Directives For more information, please contact: [phone] * Full Code (Latest Code Status on [...] 6:28 PM 06/06/2023 4:36 AM Care Teams Patient Financial Services Coordinator Relationship Specialty Start Date End Date Gray Lewis MD [address] [place] [address] PCP - General 09/05/13 Yoel Siu MD [address] [facility] [address] [place] [address] Consulting Physician Cardiovascular Disease 06/06/23
[2024-12-24 15:50] LABS: Basophils Percent Auto 0.4 % (0.2-1.2); Eosinophils Percent Auto 0.4 % (0-4.4); Hematocrit 37.3 % (42.0-52.0); Immature Granulocyte Absolute 0.28 K/mm3 (0.00-0.031); Immature Granulocyte Percent A 2.8 % (0-0.5); Lymphocytes Absolute Auto 1.05 K/mm3 (0.9-3.2); Lymphocytes Percent Auto 10.6 % (18.3-44.2); Mean Corpuscular HGB Conc 32.2 g/dl (32-36); Mean Corpuscular Hemoglobin 29.3 pg (26-34); Mean Platelet Volume 11.4 fl (7.4-10.4); Monocytes Absolute Auto 0.5 K/mm3 (0.1-0.6); Monocytes Percent Auto 4.6 % (2.6-8.5); Neutrophils Percent Auto 81.2 % (45.5-73.1); Platelet Count Result 210 k/mm3 (150-375); Red Cell Distribution Width 13.9 % (11.5-14.5); White Blood Count 9.9 K/mm3 (4.5-10.0)
[2024-12-24 16:00] LABS: Alanine Aminotransferase 39 U/L (6-50); Alkaline Phosphatase 80 U/L (38-126); Anion Gap 9 mmol/L (4-12); Aspartate Amino Transferase 21 U/L (17-59); Bilirubin,Total 0.7 mg/dL (0.2-1.3); Blood Urea Nitrogen 34 mg/dL (9-20); Calcium 8.8 mg/dL (8.4-10.2); Carbon Dioxide 32 mmol/L (22-30); Chloride 95 mmol/L (98-107); Estimated CRCL calculation 41 ml/min; Estimated Glomerular Filt Rate 49; Glucose 177 mg/dL (65-110); Sodium 136 mmol/L (137-145)
[2024-12-24 16:01] LABS: INR 1.1; Partial Thromboplastin Time 26.4 Seconds (22.3-36.8); Prothrombin Time 14.5 Seconds (11.1-14.7)
[2024-12-24 16:12] LABS: Troponin I < 0.012 ng/mL (0.000-0.034)
--- NOTE | 2024-12-24 16:34 | ED_ITS ---
HPI - General Adult General Chief complaint: Neuro Symptoms/Deficit Stated complaint: L. side neuro symptoms, LKW midnight Time Seen by Provider: 12/24/24 15:05 History of Present Illness HPI narrative: Patient is an 84-year-old male who presents ER with concerns for CVA. Woke up at 7:30 a.m. with cramping in his left calf and then noticed numbness that went from the left leg up to left arm into the left face. His still numb left face and arm. No chest pain or shortness of breath. No history of CVA. Reports when he is walking he feels like he is dragging his left leg. He is on Eliquis. Has history of a renal cell carcinoma and underwent cryoablation couple weeks ago. He has a contrast dye allergy to iodine and has to be pretreated. Related Data Home Medications ?Medication ?Instructions ?Recorded ?Confirmed ?Last Taken ?Type glucosamine sulfate 500 mg tablet 1,500 mg PO DAILY 11/06/21 12/17/24 Unknown History (Glucosamine) isosorbide mononitrate 30 mg 30 mg PO DAILY 11/06/21 12/17/24 Unknown History tablet,extended release 24 hr multivitamin with iron 1 tablet PO DAILY 11/06/21 12/17/24 Unknown History aspirin 81 mg capsule 81 mg PO DAILY 02/15/22 12/17/24 Unknown History apixaban 5 mg tablet 5 mg PO BID 07/01/23 12/17/24 Unknown History metoprolol succinate 50 mg 50 mg PO DAILY 07/01/23 12/17/24 Unknown History tablet,extended release 24 hr Allergies Allergy/AdvReac Type Severity Reaction Status Date / Time iodine Allergy Severe HIVES, IVP Verified 12/17/24 09:45 DYE ciprofloxacin Allergy Intermediate Hives Verified 12/24/24 16:14 Penicillins Allergy Mild SWELLING/HI Verified 12/17/24 09:45 VES Quinolones AdvReac Severe Hives Verified 12/17/24 09:45 Sulfa (Sulfonamide AdvReac Severe CRAMPING Verified 12/17/24 09:45 Antibiotics) N/V sulfamethoxazole AdvReac Severe CRAMPING Verified 12/17/24 09:45 N/V trimethoprim AdvReac Severe CRAMPING Verified 12/17/24 09:45 N/V Contrast Media Allergy Severe HIVES Uncoded 12/17/24 09:45 DIDOFENAC AdvReac Severe NAUSEA/VOMI Uncoded 12/17/24 09:45 TING Review of Systems 2 Review of Systems: All systems reviewed & are unremarkable except as noted in HPI and below Constitutional: Constitutional: Reports no additional constitutional complaints ENT: Reports system reviewed and no additional complaints, except as documented Cardiovascular: Cardiovascular: Reports no additional cardiovascular complaints Respiratory: Respiratory: Reports no additional respiratory complaints Neurologic: Reports system reviewed and no additional complaints, except as documented [facility] Past Medical History Medical History (Updated 12/24/24 @ 20:50 by Patrick Newton MD) Renal cell carcinoma of right kidney Hypertensive chronic kidney disease with stage 1 through stage 4 chronic kidney disease, or unspecified chronic kidney disease Pure hypercholesterolemia, unspecified Paroxysmal atrial fibrillation Chronic diastolic heart failure GERD (gastroesophageal reflux disease) Surgical History Surgical History History of cholecystectomy (2007) History of total right knee replacement (2010) History of prosthetic unicompartmental arthroplasty of knee (~2011) left medial 2012 History of hydrocelectomy (05/2020) History of PTCA Hx of CABG (2014) Family History Family History Father Acute myocardial infarction Cerebrovascular accident Diabetes mellitus Mother Cancer Social History Social History Smoking status: Never smoker Second hand tobacco smoke exposure: Yes Alcohol intake: former Exam 2 Narrative: GENERAL: Well-appearing, well-nourished, and in no acute distress. HEAD: Normocephalic, atraumatic. EYES: PERRL and EOMI. ENT: Mucous membranes moist. CHEST: Clear to auscultation. No respiratory distress. HEART: Regular rate and rhythm. Normal peripheral pulses. ABDOMEN: Soft, nontender, nondistended. EXTREMITIES: Normal range of motion. No edema. SKIN: Warm, dry, no rash. NEURO: Left upper extremity pronator drift, difficulty with finger-nose testing left upper extremity, decreased sharp touch left upper extremity and left face at the cheek and chin. NIH stroke scale of 3. Normal lower extremities might upper extremity. No expressive aphasia or dysarthria. Alert and oriented x3. PSYCH: Normal mood and affect. Course Course Emergency Course: Suspect acute CVA within the last 24 hours. Not amenable to TNK given anticoagulant use and delayed presentation. Neurology consulted. Admit to hospitalist service. CTA not ordered due to contrast media allergy. Patient did not require hydralazine for blood pressure management. Vital Signs Vital signs: Vital Signs Temperature 97.5 F L 12/24/24 14:17 Pulse Rate 65 12/24/24 14:17 Respiratory Rate 18 12/24/24 14:17 Blood Pressure 204/79 H 12/24/24 14:17 Pulse Oximetry 98 12/24/24 14:17 Oxygen Delivery Nasal Cannula 12/24/24 14:17 Oxygen Flow Rate 2 12/24/24 14:17 Temperature 98.1 F 12/24/24 19:14 Pulse Rate 59 L 12/24/24 19:14 Respiratory Rate 17 12/24/24 19:14 Blood Pressure 186/80 H 12/24/24 19:14 Pulse Oximetry 99 12/24/24 19:18 Oxygen Delivery Nasal Cannula 12/24/24 19:18 Oxygen Flow Rate 3 12/24/24 19:18 Medical Decision Making Vital Signs Vital Signs: Vital Signs Temperature 97.5 F L 12/24/24 14:17 Pulse Rate 65 12/24/24 14:17 Respiratory Rate 18 12/24/24 14:17 Blood Pressure 204/79 H 12/24/24 14:17 Pulse Oximetry 98 12/24/24 14:17 Oxygen Delivery Nasal Cannula 12/24/24 14:17 Oxygen Flow Rate 2 12/24/24 14:17 Temperature 98.1 F 12/24/24 19:14 Pulse Rate 59 L 12/24/24 19:14 Respiratory Rate 17 12/24/24 19:14 Blood Pressure 186/80 H 12/24/24 19:14 Pulse Oximetry 99 12/24/24 19:18 Oxygen Delivery Nasal Cannula 12/24/24 19:18 Oxygen Flow Rate 3 12/24/24 19:18 Lab Data 12/24/24 15:43 12/24/24 15:43 Labs: Lab Results 12/24/24 12/24/24 Range/Units 14:18 15:43 WBC 9.9 (4.5-10.0) K/mm3 RBC 4.10 L (4.6-6.20) M/mm3 Hgb 12.0 L (14.0-18.0) g/dL Hct 37.3 L (42.0-52.0) % MCV 91.0 (80-100) fl MCH 29.3 (26-34) pg MCHC 32.2 (32-36) g/dl RDW 13.9 (11.5-14.5) % Plt Count 210 (150-375) k/mm3 MPV 11.4 H (7.4-10.4) fl Immature Gran % (Auto) 2.8 H (0-0.5) % Neut % (Auto) 81.2 H (45.5-73.1) % Lymph % (Auto) 10.6 L (18.3-44.2) % [place] % (Auto) 4.6 (2.6-8.5) % Eos % (Auto) 0.4 (0-4.4) % Baso % (Auto) 0.4 (0.2-1.2) % Lymph # (Auto) 1.05 (0.9-3.2) K/mm3 [place] # (Auto) 0.5 (0.1-0.6) K/mm3 Eos # (Auto) 0.0 (0-0.3) K/mm3 Baso # (Auto) 0.0 (0.0-0.1) K/mm3 Abs Immat Gran (auto) 0.28 H (0.00-0.031) K/mm3 Absolute Neuts (auto) 8.0 H (1.3-6.7) K/mm3 Absolute Nucleated RBC 0.000 (0.0-0.012) K/mm3 Nucleated RBC % 0.0 (0.0-0.2) % PT 14.5 (11.1-14.7) Seconds INR 1.1 APTT 26.4 (22.3-36.8) Seconds Sodium 136 L (137-145) mmol/L Potassium 4.0 (3.4-5.0) mmol/L Chloride 95 L (98-107) mmol/L Carbon Dioxide 32 H (22-30) mmol/L Anion Gap 9 (4-12) mmol/L BUN 34 H (9-20) mg/dL Creatinine 1.38 H (0.7-1.3) mg/dL Estim Creat Clear Calc 41 ml/min Estimated GFR 49 L (59 - ) Glucose 177 H (65-110) mg/dL POC Capillary Glucose 184 H (65-105) mg/dl Calcium 8.8 (8.4-10.2) mg/dL Total Bilirubin 0.7 (0.2-1.3) mg/dL AST 21 (17-59) U/L ALT 39 (6-50) U/L Alkaline Phosphatase 80 (38-126) U/L Troponin I < 0.012 (0.000-0.034) ng/mL Total Protein 7.0 (6.3-8.2) g/dL Albumin 4.0 (3.5-5.1) g/dL Imaging Data Radiologist's impression: ITS Impressions Chest X-Ray 12/24/24 15:52 IMPRESSION: 1. Mild atelectasis at left lung base. Head CT 12/24/24 16:00 IMPRESSION: 1. Old infarcts in the brain. 2. Moderate nonspecific cerebral white matter disease, which likely represents chronic small vessel ischemic disease. Carotid Doppler Study 12/24/24 20:26 IMPRESSION: 1. Less than 50% stenosis in the right internal carotid artery. 2. Less than 50% stenosis in the left internal carotid artery. ECG Data EKG #1: ECG completion date: 12/24/24 ECG completion time: 14:37 EKG Interpretation: bradycardia (55), sinus rhythm, non-specific ST changes, normal QRS, normal QT and left axis Critical Care Time Critical Care Time Critical Care Time: Yes Total Critical Care Time: 35 Discharge Plan Discharge Clinical Impression: Acute CVA (cerebrovascular accident) Patient Disposition: Still a Patient Condition: Stable Patient Language: Japanese Prescriptions: No Action glucosamine sulfate [Glucosamine] 500 mg tablet 1,500 mg PO DAILY Rx Instructions: administer with a meal multivitamin with iron Tablet 1 tablet PO DAILY isosorbide mononitrate 30 mg tablet extended release 24 hr 30 mg PO DAILY metoprolol succinate 50 mg tablet extended release 24 hr 50 mg PO DAILY apixaban 5 mg tablet 5 mg PO BID prednisone 10 mg tablet See Rx Instructions PO DIRECTED Qty: 30 0RF Rx Instructions: Take 4 daily (40 mg) for 3 days, 3 daily (30 mg) for 3 days, 2 (20 mg) daily for 3 days, then 1 daily (20 mg) for 3 days orally as directed. aspirin 81 mg capsule 81 mg PO DAILY terazosin 5 mg capsule See Rx Instructions .ROUTE .COMPLEX Qty: 90 0RF Dose Instruction: TAKE 1 CAPSULE EVERY DAY Rx Instructions: TAKE 1 CAPSULE EVERY DAY atorvastatin 10 mg tablet See Rx Instructions .ROUTE .COMPLEX Qty: 90 0RF Dose Instruction: TAKE 1 TABLET EVERY DAY Rx Instructions: TAKE 1 TABLET EVERY DAY furosemide 40 mg tablet See Rx Instructions .ROUTE .COMPLEX Qty: 180 0RF Dose Instruction: TAKE 2 TABLETS EVERY MORNING Rx Instructions: TAKE 2 TABLETS EVERY MORNING omeprazole 40 mg capsule,delayed release(DR/EC) See Rx Instructions .ROUTE .COMPLEX Qty: 90 0RF Dose Instruction: TAKE 1 CAPSULE EVERY DAY Rx Instructions: TAKE 1 CAPSULE EVERY DAY levothyroxine 50 mcg tablet See Rx Instructions .ROUTE .COMPLEX Qty: 90 0RF Dose Instruction: TAKE 1 TABLET EVERY DAY Rx Instructions: TAKE 1 TABLET EVERY DAY probenecid 500 mg tablet See Rx Instructions .ROUTE .COMPLEX Qty: 90 3RF Dose Instruction: TAKE 1 TABLET EVERY DAY Rx Instructions: TAKE 1 TABLET EVERY DAY Follow-up/Referrals: Gray Lewis MD [Primary Care Provider] - Quality Stroke Date of last known normal: 12/24/24 Time of last known normal: 00:00 Stroke Scale Stroke Scale 1: Stroke scale date:: 12/24/24 Stroke scale time:: 16:20 1a Level of consciousness: alert-0 1b Level of consciousness questions: answers both correctly-0 1c Level of consciousness commands: obeys both correctly-0 2 Best gaze: normal-0 3 Visual: no visual loss-0 4 Facial palsy: normal-0 5a Motor: left arm: drift-1 5b Motor: right arm: no drift-0 6a Motor: left leg: no drift-0 6b Motor: right leg: no drift-0 7 Limb ataxia: present in one limb-1 8 Sensory: pinprick less sharp-1 9 Best language: no aphasia-0 10 Dysarthria: normal-0 11 Extinction and inattention: no abnormality-0 Level:: 3 Comment: Decreased pinprick left cheek and left upper extremity.
--- OUTSIDE RECORDS SUMMARY | 2024-12-24 17:33 | XMS_ITS | Referral Summary ---
Author Organization [facility] D Address [address] [place] [address] Care Team Providers Care Window Maker Name Role Phone Gray Lewis MD Primary Care Prov ider Yoel Siu MD Unavailable Encounters Date Type Department Care Team Description 12/19/2024 Orders Only [facility] - Interventional Radiology [address] [place] [phone] Demetria Trujillo, RN 12/19/2024 Telephone [facility] - Interventional Radiology [address] [place] [phone] Demetria Trujillo, RN 12/18/2024 Telephone [facility] - Interventional Radiology [address] [place] [phone] Demetria Trujillo, RN 12/18/2024 1:00 PM CDT Office Visit [facility] Cardiology [address] 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); Chronic diastolic (congestive) heart failure (HCC); Paroxysmal atrial fibrillation (HCC); Chronic heart failure with preserved ejection fraction (HCC) 12/12/2024 Telephone [facility] - Interventional Radiology [address] [place] [phone] Demetria Trujillo, RN 12/10/2024 Telephone [facility] - Interventional Radiology [address] [place] [phone] Demetria Trujillo, RN 12/10/2024 Telephone [facility] - Interventional Radiology [address] [place] [phone] Demetria Trujillo, RN 12/07/2024 4:08 PM CDT - 12/08/2024 1:49 PM CDT Hospital Encounter [address] [phone] Renard Naylor, Roseanna Huertas MD Renal mass, right Discharge Disposition: Discharge to home or self care 12/07/2024 Orders Only [address] [phone] Renard Naylor DO 12/07/2024 Orders Only [facility] - Interventional Radiology [address] [place] [phone] Annie Escobar RN Paroxysmal atrial fibrillation (HCC) 12/07/2024 Telephone [facility] - Interventional Radiology [address] [place] [phone] Demetria Trujillo, THAI 12/07/2024 Orders Only [facility] - Interventional Radiology [address] [place] [phone] Parish Mallory, THAI 12/07/2024 Orders Only [facility] - Interventional Radiology [address] [place] [phone] Santa Duval RN 12/07/2024 1:11 PM CDT Anesthesia Event [facility] - Interventional Radiology [address] [place] [phone] Parish Ley DO Heckroth, John Arthur, MD 12/06/2024 Orders Only [facility] - Interventional Radiology [address] [place] [phone] Annie Escobar, THAI 12/06/2024 Orders Only [facility] - Interventional Radiology [address] [place] [phone] Annie Escobar, THAI Right renal mass (Primary Dx); Paroxysmal atrial fibrillation (HCC) 12/06/2024 Orders Only [facility] - Interventional Radiology [address] [place] [phone] Parish Mallory RN 12/03/2024 Telephone [facility] - Interventional Radiology [address] [place] [phone] Demetria Trujillo RN 11/23/2024 Telephone [facility] Pre Anesthesia Testing [address] [place] [phone] Kathya Bowen RN 11/23/2024 Telephone [facility] - Interventional Radiology [address] [place] [phone] Demetria Trujillo, THAI 11/22/2024 12:15 PM GLUE MACHINE OPERATOR Pre-Admission Testing [facility] Pre Anesthesia Testing [address] [place] [phone] Right renal mass; Paroxysmal atrial fibrillation (HCC); Shortness of breath; Hypoxemia; PARDEEP on CPAP 11/13/2024 Orders Only [facility] - Interventional Radiology [address] [place] [phone] Demetria Trujillo RN Right renal mass (Primary Dx); Paroxysmal atrial fibrillation (HCC); Shortness of breath; Hypoxemia; PARDEEP on CPAP 11/13/2024 Telephone [facility] - Interventional Radiology [address] [place] [phone] Demertia Trujillo RN 11/12/2024 12:37 PM GLUE MACHINE OPERATOR - 11/12/2024 11:59 PM GLUE MACHINE OPERATOR Hospital Encounter [facility] - Interventional Radiology [address] [place] [phone] Bryan Beckham MD Rostambeigi, Nassir, MD Right renal mass Discharge Disposition: Discharge to home or self care 11/09/2024 Telephone [facility] - Interventional Radiology [address] [place] [phone] Demetria Trujillo RN 11/02/2024 Orders Only [facility] - Interventional Radiology [address] [place] [phone] Demetria Trujillo RN 10/25/2024 - 10/25/2024 11:59 PM GLUE MACHINE OPERATOR Hospital Encounter [facility] - Imaging [phone] Discharge Disposition: Discharge to home or self [...] 1 tablet (50 mcg total) by mouth early childhood associate before breakfast 1 Active atorvastatin (LIPITOR) 10 [...] (09/07/2019): Added automatically from request for surgery [id number] Assessment & Plan (05/11/2023 11:28 AM CDT): [...] 08/12/2018 Assessment & Plan (08/30/2019 4:04 PM GLUE MACHINE OPERATOR): This has been a longstanding complaint without evidence of congestive heart failure on previous testing. Is now associated with chest discomfort, and could represent myocardial ischemia. 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 Assessment & Plan (11/01/2019 6:33 PM GLUE MACHINE OPERATOR): On Imdur, he is not experiencing any angina. He is on a low dosage which could be increased if necessary, but there is no reason to increase it at this point. Assessment & Plan (09/03/2019 6:06 PM GLUE MACHINE OPERATOR): Exertional chest pressure 4.5 years following five [...] Lexiscan. Assessment & Plan (08/14/2018 5:46 PM GLUE MACHINE OPERATOR): No symptoms of chest discomfort. Continue aspirin. Assessment & Plan (11/04/2017 10:06 AM GLUE MACHINE OPERATOR): No symptoms of myocardial ischemia. He is [...] made. Assessment & Plan (11/01/2019 6:34 PM GLUE MACHINE OPERATOR): Blood pressure is adequately controlled on current regimen. No change was made. Assessment & Plan (08/30/2019 4:06 PM GLUE MACHINE OPERATOR): Blood pressure is higher today. He says he took his medications. Will reassess his blood pressure with his stress test. Advised to improved diet Assessment & Plan (08/14/2018 5:46 PM GLUE MACHINE OPERATOR): Blood pressure is adequately controlled on current regimen. No change was made. Assessment & Plan (11/04/2017 10:06 AM GLUE MACHINE OPERATOR): Blood pressure is adequately controlled on current regimen. No change was made. Pure hypercholesterolemia 08/06/2014 Overview (12/31/2016): Pure hypercholesterolemia Assessment & Plan (05/04/2021 10:38 AM CDT): He is on low-dose statin therapy. He has previously not tolerated high-intensity therapy. Assessment & Plan (05/01/2020 11:03 AM CDT): He is on low intensity statin therapy intentionally because of myalgias. Assessment & Plan (11/01/2019 6:34 PM GLUE MACHINE OPERATOR): On chronic lipid lowering therapy with good control. No changes made. Assessment & Plan (09/03/2019 6:06 PM GLUE MACHINE OPERATOR): LDL is 109, above target. He is on only low-dose simvastatin because he developed myalgias on other statins. Assessment & Plan (08/14/2018 5:46 PM GLUE MACHINE OPERATOR): On chronic lipid lowering therapy with good control. No changes made. Assessment & Plan (11/04/2017 10:06 AM GLUE MACHINE OPERATOR): On chronic lipid lowering therapy with good [...] often do you attend chur ch or yazidi services? More than 4 times per year 06/17/2023 Do you belong to any clubs o r organizations such as christianity groups, unions, fraternal or athletic groups, or [...] place to sleep or slept in a residential (including now)? No 06/17/2023 Personal Safety Answer [...] on file Legal Sex Male 12:10 PM GLUE MACHINE OPERATOR Gender Identity Not on file Sexual Orientation [...] home safety. Medical Devices Implanted Type Area Comprehensive Advisor Device Identifier Shelf Expiration Date Model / [...] 2: 20 PM CDT Renal mass, right WA AN PROCEDURE PLACEHOLDER Routine 12/07/2024 1:33 PM CDT WA AN ELECTIVE ENDOTRACHEAL AIRWAY Routine 12/07/2024 1:33 PM CDT EGFR STAT 11/22/2024 2:46 PM GLUE MACHINE OPERATOR Right renal mass Paroxysmal atrial fibrillation (HCC) Shortness of breath Hypoxemia PARDEEP on CPAP BASIC METABOLIC PANEL STAT 11/22/2024 2:46 PM GLUE MACHINE OPERATOR Right renal mass Paroxysmal atrial fibrillation (HCC) Shortness of breath Hypoxemia PARDEEP on CPAP DIFFERENTIAL AUTO STAT 11/22/2024 2:3 4 PM GLUE MACHINE OPERATOR Right renal mass Paroxysmal atrial fibrillation (HCC) Shortness of breath Hypoxemia PARDEEP on CPAP CBC WITH AUTO DIFFERENTIAL STAT 11/22/2024 2:34 PM GLUE MACHINE OPERATOR Right renal mass Paroxysmal atrial fibrillation (HCC) Shortness of breath Hypoxemia PARDEEP on CPAP PROTIME-INR STAT 11/22/2024 2:34 PM GLUE MACHINE OPERATOR Right renal mass Paroxysmal atrial fibrillation (HCC) Shortness of breath Hypoxemia PARDEEP on CPAP CONSULT TO INTERVENTIONAL RADIOLOGY Schedule Routine, Read Routine (OP Routine) 11/12/2024 3:20 PM GLUE MACHINE OPERATOR Right renal mass CT BODY OUTSIDE REFERENCE Routine 10/25/2024 12:00 AM GLUE MACHINE OPERATOR from Last 3 Months Results * (ABNORMAL) [...] Palmer MD LAB BLOOD ORDERABLES Final Result [facility] [address] [place] [address] * (ABNORMAL) Differential, auto (12/08/2024 12:49 AM CDT) Neutrophil abs 11.4(H) 1.5 - 6.5 K/cumm Imm gran abs 0.1 0.0 - 0.1 K/cumm [facility] Lymphocyte abs 1.0 0.8 - 3.3 K/cumm [facility] Monocyte abs 0.4 0.2 - 0.8 K/cumm [facility] Eosinophil abs 0.0 0.0 - 0.5 K/cumm [facility] Basophil abs 0.0 0.0 - 0.1 K/cumm [facility] Neutrophil pct 88.4 % [facility] Comment: Interpretive Data Percent cell count reference ranges are not reported, since discordance with absolute values may lead to misinterpretation of CBC data. Current Interpretive Data was last revised on 2018. Imm gran pct 0.7 % [facility] Comment: Interpretive Data Percent cell count reference ranges are not reported, since discordance with absolute values may lead to misinterpretation of CBC data. Current Interpretive Data was last revised on 2018. Lymphocyte pct 7.5 % [facility] Comment: Interpretive Data Percent cell count reference ranges are not reported, since discordance with absolute values may lead to misinterpretation of CBC data. Current Interpretive Data was last revised on 2018. Monocyte pct 3.2 % [facility] Comment: Interpretive Data Percent cell count reference ranges are not reported, since discordance with absolute values may lead to misinterpretation of CBC data. Current Interpretive Data was last revised on 2018. Eosinophil pct 0.0 % [facility] Comment: Interpretive Data Percent cell count reference ranges are not reported, since discordance with absolute values may lead to misinterpretation of CBC data. Current Interpretive Data was last revised on 2018. Basophil pct 0.2 % [facility] Comment: Interpretive Data Percent cell count reference ranges are not reported, since discordance with absolute values may lead to misinterpretation of CBC data. Current Interpretive Data was last revised on 2018. Blood 12/08/2024 12:4 9 AM CDT 12/08/2024 1:48 AM CDT Roseanna Lugo MD LAB BLOOD ORDERABLES Final Resul t Performing Organization Address [facility] Co de Phone Number [facility] [address] [place] [address] * (ABNORMAL) CBC with auto differential (12/08/2024 12:49 AM CDT) WBC 12.9(H) 3.8 - 9.9 K/cumm Hgb 12.0(L) 13.0 - 17.5 g/dL [facility] Hct 37.9(L) 38.9 - 50.3 % [facility] Plt 184 150 - 400 K/cumm [facility] MPV 12.7(H) 9.1 - 12.3 fL [facility] RBC 4.04(L) 4.30 - 5.80 M/cumm [facility] MCV 93.8 81.3 - 96.4 fL [facility] MCH 29.7 27.1 - 33.3 pg [facility] MCHC 31.7(L) 32.3 - 35.7 g/dL [facility] RDW CV 13.6 11.1 - 14.9 % [facility] RDW SD 47.6 35.7 - 48.1 fL [facility] NRBC abs 0.00 0.00 - 0.01 K/cumm [facility] Blood 12/08/2024 12:4 9 AM CDT 12/08/2024 1:48 AM CDT us Roseanna Lugo MD LAB BLOOD ORDERABLES Final Resul t Performing Organization Address City/[facility]/ZIP Co de Phone Number [facility] [address] Department [employer] [place] [address] * (ABNORMAL) Basic metabolic panel (12/08/2024 12:49 AM CDT) [facility] Sodium 137 135 - 145 mmol/L Potassium, pl 4.1 3.3 - 4.9 mmol/L [facility] Chloride 97 97 - 110 mmol/L [facility] CO2 24 22 - 32 mmol/L [facility] Anion gap 16(H) 2 - 15 mmol/L [facility] BUN 22 6 - 25 mg/dL [facility] Creatinine 1.42(H) 0.80 - 1.30 mg/dL [facility] Glucose 178 70 - 199 mg/dL [facility] Comment: Interpretive Data Fasting glucose >/= 126 [...] 2022. Calcium 8.7 8.5 - 10.3 mg/dL [facility] Blood 12/08/2024 12:4 9 AM CDT 12/08/2024 1:47 AM CDT Darvin Palmer MD LAB BLOOD ORDERABLES Final Result [facility] [address] [place] [address] * (ABNORMAL) CBC without differential (12/07/2024 7:52 PM CDT) [facility] WBC 12.4(H) 3.8 - 9.9 K/cumm Hgb 12.5(L) 13.0 - 17.5 g/dL [facility] Hct 39.2 38.9 - 50.3 % [facility] Plt 192 150 - 400 K/cumm [facility] MPV 12.5(H) 9.1 - 12.3 fL [facility] RBC 4.18(L) 4.30 - 5.80 M/cumm [facility] MCV 93.8 81.3 - 96.4 fL [facility] MCH 29.9 27.1 - 33.3 pg [facility] MCHC 31.9(L) 32.3 - 35.7 g/dL [facility] RDW CV 13.8 11.1 - 14.9 % [facility] RDW SD 46.9 35.7 - 48.1 fL [facility] NRBC abs 0.00 0.00 - 0.01 K/cumm [facility] Blood 12/07/2024 7:52 PM CDT 12/07/2024 8:00 PM CDT Roseanna Lugo MD LAB BLOOD ORDERABLES Final Resul t [facility] [address] [place] [address] * (ABNORMAL) CBC without differential (12/07/2024 4:04 PM CDT) WBC 8.9 3.8 - 9.9 K/cumm Hgb 11.9(L) 13.0 - 17.5 g/dL [facility] Hct 37.1(L) 38.9 - 50.3 % [facility] Plt 156 150 - 400 K/cumm [facility] MPV 12.6(H) 9.1 - 12.3 fL [facility] RBC 3.92(L) 4.30 - 5.80 M/cumm [facility] MCV 94.6 81.3 - 96.4 fL [facility] MCH 30.4 27.1 - 33.3 pg [facility] MCHC 32.1(L) 32.3 - 35.7 g/dL [facility] RDW CV 13.8 11.1 - 14.9 % [facility] RDW SD 47.8 35.7 - 48.1 fL [facility] NRBC abs 0.00 0.00 - 0.01 K/cumm [facility] Blood 12/07/2024 4:04 PM CDT 12/07/2024 4:21 PM CDT Narrative [facility] - 12/07/2024 4:28 PM CDT 6 Hours post procedure. us Darvin Palmer MD LAB BLOOD ORDERABLES Final Result [facility] [address] [place] [address] * IR Cryoablation Renal Right (12/07/2024 3:27 [...] was obtained. Prior to beginning the procedure, [place] Protocol was performed to confirm the patient?s [...] 17-gauge Core Biopsy Needle: 18 gauge Bard Fillmore [address] guidance, 2 [...] was obtained. Prior to beginning the procedure, [place] Protocol was performed to confirm the patient?s [...] 17-gauge Core Biopsy Needle: 18 gauge Bard Fillmore [address]. [address] guidance, 2 [...] tumor/mass) 12/07/2024 2:20 PM CDT Narrative PATHOLOGY [facility] - 12/10/2024 5:01 PM CDT [address] [address] Tele: Maggi Roque MD - Jitterbug Operator Note to Patients: This report may contain [...] PATHOLOGY REPORT Patient Name: JUAN WILKERSON Address: [address] [place] [id number] Gender: M : 1940 (Age: 84) Service: Medical Location: [place] [address], Hospital #: [id number] Patient Type: [facility] IN BED Taken: 12/07/2024 Received 12/07/2024 [...] filtered and submitted entirely in cassette A1. [facility] MICROSCOPIC DESCRIPTION: Microscopic examination shows solid [...] renal cell carcinoma. Clerical Data Follows A; 18717, 21800, 97375(5) REPORT IMAGES AND/OR SCANNED DOCUMENTS ONLY VIEWABLE IN PDF FORMAT The immunohistochemical test(s) cited in this report, if any, was developed and its performance characteristics determined by [facility] Pathology Department. It has not been cleared or approved by the U.S. Food and Drug Administration. The FDA has determined that such clearance or approval is not necessary. This test is used for clinical purposes. It should not be regarded as investigational or for research. [facility] Laboratory is certified under the Clinical Laboratory [...] part or completely in the following laboratories: [facility], [address] [facility] [address], [place] [address] [facility], [address] [facility], [place] [address]. Darvin Palmer MD LAB PATHOLOGY ORDERABLES F inal Result PATHOLOGY [facility] Laboratory Receiving [address] [place] [address] * WA AN ELECTIVE ENDOTRACHEAL AIRWAY, [place] AN PROCEDURE PLACEHOLDER (12/07/2024 1:33 PM CDT) Narrative Lyndsey Coto CRNA - 12/07/2024 1:33 PM CDT Lyndsey Coto CRNA 12/07/2024 1:34 PM Airway Patient location: OR Urgency: elective Indications for airway management: anesthesia Difficult airway: no Staff: Placed by: FRONT END LOADER OPERATOR: Lyndsey Coto CRNA Emergent airway documentation: Risks [...] Result * (ABNORMAL) eGFR (11/22/2024 2:46 PM GLUE MACHINE OPERATOR) eGFR 57(L) >=60 mL/min/1. 73 m2 Comment: [...] last reviewed 2021. Blood 11/22/2024 2:46 PM GLUE MACHINE OPERATOR 11/22/2024 2:46 PM GLUE MACHINE OPERATOR us Darvin Palmer MD LAB BLOOD ORDERABLES Final Result [facility] [address] [place] [address] * Basic metabolic panel (11/22/2024 2:46 PM GLUE MACHINE OPERATOR) Sodium 141 135 - 145 mmol/L Potassium, pl 3.3 3.3 - 4.9 mmol/L [facility] Chloride 100 97 - 110 mmol/L [facility] CO2 27 22 - 32 mmol/L [facility] Anion gap 14 2 - 15 mmol/L [facility] BUN 22 6 - 25 mg/dL [facility] Creatinine 1.24 0.80 - 1.30 mg/dL [facility] Glucose 108 70 - 199 mg/dL [facility] Comment: Interpretive Data Fasting glucose >/= 126 [...] 2022. Calcium 8.6 8.5 - 10.3 mg/dL [facility] Blood 11/22/2024 2:46 PM GLUE MACHINE OPERATOR 11/22/2024 2:46 PM GLUE MACHINE OPERATOR us Darvin Palmer MD LAB BLOOD ORDERABLES Final Result [facility] [address] [place] [address] * (ABNORMAL) Differential, auto (11/22/2024 2:34 PM GLUE MACHINE OPERATOR) Neutrophil abs 3.1 1.5 - 6.5 K/cumm Imm gran abs 0.0 0.0 - 0.1 K/cumm [facility] Lymphocyte abs 1.8 0.8 - 3.3 K/cumm [facility] Monocyte abs 0.9(H) 0.2 - 0.8 K/cumm [facility] Eosinophil abs 0.2 0.0 - 0.5 K/cumm [facility] Basophil abs 0.0 0.0 - 0.1 K/cumm [facility] Neutrophil pct 50.7 % [facility] Comment: Interpretive Data Percent cell count reference ranges are not reported, since discordance with absolute values may lead to misinterpretation of CBC data. Current Interpretive Data was last revised on 2018. Imm gran pct 0.5 % [facility] Comment: Interpretive Data Percent cell count reference ranges are not reported, since discordance with absolute values may lead to misinterpretation of CBC data. Current Interpretive Data was last revised on 2018. Lymphocyte pct 29.5 % [facility] Comment: Interpretive Data Percent cell count reference ranges are not reported, since discordance with absolute values may lead to misinterpretation of CBC data. Current Interpretive Data was last revised on 2018. Monocyte pct 15.3 % [facility] Comment: Interpretive Data Percent cell count reference ranges are not reported, since discordance with absolute values may lead to misinterpretation of CBC data. Current Interpretive Data was last revised on 2018. Eosinophil pct 3.5 % [facility] Comment: Interpretive Data Percent cell count reference ranges are not reported, since discordance with absolute values may lead to misinterpretation of CBC data. Current Interpretive Data was last revised on 2018. Basophil pct 0.5 % [facility] Comment: Interpretive Data Percent cell count reference ranges are not reported, since discordance with absolute values may lead to misinterpretation of CBC data. Current Interpretive Data was last revised on 2018. Blood 11/22/2024 2:34 PM GLUE MACHINE OPERATOR 11/22/2024 2:34 PM GLUE MACHINE OPERATOR us Darvin Palmer MD LAB BLOOD ORDERABLES Final Result [facility] [address] [place] [address] * (ABNORMAL) CBC with auto differential (11/22/2024 2:34 PM GLUE MACHINE OPERATOR) WBC 6.0 3.8 - 9.9 K/cumm Hgb 12.0(L) 13.0 - 17.5 g/dL [facility] Hct 37.7(L) 38.9 - 50.3 % [facility] Plt 174 150 - 400 K/cumm [facility] MPV 12.9(H) 9.1 - 12.3 fL [facility] RBC 4.05(L) 4.30 - 5.80 M/cumm [facility] MCV 93.1 81.3 - 96.4 fL [facility] MCH 29.6 27.1 - 33.3 pg [facility] MCHC 31.8(L) 32.3 - 35.7 g/dL [facility] RDW CV 13.5 11.1 - 14.9 % [facility] RDW SD 46.1 35.7 - 48.1 fL [facility] NRBC abs 0.00 0.00 - 0.01 K/cumm [facility] Blood 11/22/2024 2:34 PM GLUE MACHINE OPERATOR 11/22/2024 2:34 PM GLUE MACHINE OPERATOR Darvin Palmer MD LAB BLOOD ORDERABLES Final Result Performing Organization Address [facility] Co de Phone Number [facility] [address] [facility] [place] [address] * (ABNORMAL) Protime-INR (11/22/2024 2:34 PM GLUE MACHINE OPERATOR) PT 14.6(H) 9.7 - 13.0 sec INR 1.34(H) 0.90 - 1.20 [facility] Comment: Interpretive data Oral anticoagulant therapeutic ranges: Venous thromboembolism prophylaxis or treatment: 2.0-3.0 CARDIOLOGY Standard range: 2.0-3.0 High-intensity range: 2.5-3.5 Refer to indication-specific guidelines for appropriate target ranges for prosthetic heart valve replacement. Current interpretive data was last revised on 2019. Blood 11/22/2024 2:34 PM GLUE MACHINE OPERATOR 11/22/2024 2:34 PM GLUE MACHINE OPERATOR Darvin Palmer MD LAB BLOOD ORDERABLES Final Result Performing Organization Address City/[facility] Co de Phone Number [facility] [address] [place] [address] * Consult to Interventional Radiology (11/12/2024 3:20 PM GLUE MACHINE OPERATOR) Anatomical Region Laterality Modality N/A X-Ray Angiograph y 11/12/2024 4:14 PM GLUE MACHINE OPERATOR Impressions 11/12/2024 4:14 PM GLUE MACHINE OPERATOR Percutaneous cryoablation of the right renal mass is discussed with the patient who is a good candidate for it. Complete details regarding this office visit can be found in [facility] under the Notes tab. Electronically signed by: Darvin Palmer M.D. Narrative 11/12/2024 4:14 PM GLUE MACHINE OPERATOR EXAMINATION: [facility] INTERVENTIONAL RADIOLOGY CLINIC VISIT HISTORY: 84-year-old male patient with a right renal mass. He is a very good candidate for percutaneous ablation Procedure Note Darvin Palmer MD - 11/12/2024 EXAMINATION: [facility] INTERVENTIONAL RADIOLOGY CLINIC VISIT HISTORY: 84-year-old male [...] CT Body Outside Reference (10/25/2024 12:00 AM GLUE MACHINE OPERATOR) Narrative RAD_PACS_OUTSIDE_FILM_MB - 11/01/2024 9:16 AM GLUE MACHINE OPERATOR This order has been auto-finalized and does not contain a result. Provider Transcribed Order IMG CT PROCEDURES Fin al Result RAD_PACS_OUTSIDE_FILM_[facility] from Last 3 Months Insurance MEDICARE [facility] MEDICARE [facility] Address: [address] [address] [facility] [employer] Advance Directives For more information, please contact: [phone] * Full Code (Latest Code Status on [...] 6:28 PM 06/06/2023 4:36 AM Care Teams Window Maker Relationship Specialty Start Date End Date Gray Lewis MD [address] [place] [address] PCP - General 09/05/13 Yoel Siu MD [address] [facility] [address] [place] [address] Consulting Physician Cardiovascular Disease 06/06/23
--- OUTSIDE RECORDS SUMMARY | 2024-12-24 17:33 | XMS_ITS | Encounter Summary ---
Author Organization [facility] Address [address] [place] [id number] Care Team Providers Care Char Filter Operator Helper Name Role Phone Gray Lewis MD Primary Care Provider [phone]- [phone] Encounter Details Date Type Department Care Team (Late st Contact Info) Description 06/18/2020 Prep for Procedure [facility] Pre-Admission Testing [address] [place], [place] [id number] Jason Bravo MD [address] [facility]. [place], [place] [id number] Social History Tobacco Use Types Packs/Day Years [...] DETECTED NOT DETECTED 06/22/2020 4:40 PM CDT [facility] Comment: A Not Detected (negative) test result [...] providers and patients using the following websites: [email or web address]/[email or web address]/HCP/NAAT/fact-sheet2 [email or web address]://[email or web address]/home/Covid-[email or web address]/Patients/NAAT/ fact-sheet2 This test has been authorized by the FDA under an Emergency Use Authorization (EUA) for use by authorized laboratories. Due to the current public health emergency, [facility] is receiving a high volume of samples [...] about COVID-19 can be found at the [facility] website: [email or web address].[email or web address]/Covid19. Test performed at [facility] [address] [place] [address] Director: JASON WEBSTER DO,MPH FIRST TEST YES 06/21/2020 1:41 PM CDT [facility] EMPLOYED IN HEALTHCARE NO 06/21/2020 1:41 PM CDT [facility] SYMPTOMATIC DEFINED BY CDC NO 06/21/2020 1:41 PM CDT [facility] DATE OF SYMPTOM ONSET NO 06/21/2020 2:13 PM CDT [facility] HOSPITALIZATION STATUS NO 06/21/2020 1:41 PM CDT [facility] PATIENT IN ICU NO 06/21/2020 1:41 PM CDT [facility] RESIDENT OF [facility] NO 06/21/2020 1:41 PM CDT [facility] NOT 06/21/2020 2:13 PM CDT [facility] PATIENT'S RACE WHITE OR 06/21/2020 1:41 PM CDT [facility] ETHNICITY NONHISPANIC 06/21/2020 1:41 PM CDT [facility] SOURCE (QST) NASOPHARYNGEAL SWAB 06/21/2020 1:41 PM CDT [facility] NASOPHARYNGEAL SWAB / Unknown 06/21/2020 10:54 AM CDT Jason Bravo MD MICROBIOLOGY - GENERAL OR DERABLES Final Result [facility] [address] [place] [address], [facility] [id number] [place] [address], documented in this encounter Visit Diagnoses Diagnosis Pre-op exam- Primary Preoperative examination, unspecified documented in this encounter Additional Health Concerns Infection Onset Date Last Indicated Resolved Time COVID-19 Rule Out 06/21/2020 06/21/2020 06/22/2020 4:40 PM CDT documented as of this encounter Care Teams Char Filter Operator Helper Relationship Specialty Start Date End Date Gray Lewis MD [address] [address] PCP - General FAMILY PRACTICE 06/17/20 documented as of this encounter
--- OUTSIDE RECORDS SUMMARY | 2024-12-24 17:33 | XMS_ITS | Clinical Summary ---
Author Organization [facility] Address [facility] [place] [address] Care Team Providers Care Auto Vinyl Top Installer Name Role Phone Gray Lewis MD Primary Care Provider +1- [phone] Allergies Active Allergy Reactions Criticality Noted Date [...] age to complete this topic Insurance MEDICARE [facility] Care Teams Auto Vinyl Top Installer Relationship Specialty Start Date End Date Gray Lewis MD [address] [address] PCP - General FAMILY PRACTICE 06/17/20
--- OUTSIDE RECORDS SUMMARY | 2024-12-24 17:33 | XMS_ITS | Clinical Summary ---
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 Is now associated with chest discomfort, and could represent myocardial ischemia. Assessment & Plan (08/14/2018 5:45 PM SALES CONSULTANT INSURANCE): Continued complaints of exertional dyspnea without any [...] artery disease of n ative artery of [place] heart with stable angina pectoris 08/06/2014 Overview (12/31/2016): Coronary arteriosclerosis in [place] artery Assessment & Plan (12/17/2024 8:13 PM [...] isosorbide. Assessment & Plan (11/01/2019 6:33 PM SALES CONSULTANT INSURANCE): On Imdur, he is not experiencing any angina. He is on a low dosage which could be increased if necessary, but there is no reason to increase it at this point. Assessment & Plan (09/03/2019 6:06 PM SALES CONSULTANT INSURANCE): Exertional chest pressure 4.5 years following five [...] Lexiscan. Assessment & Plan (08/14/2018 5:46 PM SALES CONSULTANT INSURANCE): No symptoms of chest discomfort. Continue aspirin. Assessment & Plan (11/04/2017 10:06 AM SALES CONSULTANT INSURANCE): No symptoms of myocardial ischemia. He is [...] made. Assessment & Plan (11/01/2019 6:34 PM SALES CONSULTANT INSURANCE): Blood pressure is adequately controlled on current regimen. No change was made. Assessment & Plan (08/30/2019 4:06 PM SALES CONSULTANT INSURANCE): Blood pressure is higher today. He says he took his medications. Will reassess his blood pressure with his stress test. Advised to improved diet Assessment & Plan (08/14/2018 5:46 PM SALES CONSULTANT INSURANCE): Blood pressure is adequately controlled on current regimen. No change was made. Assessment & Plan (11/04/2017 10:06 AM SALES CONSULTANT INSURANCE): Blood pressure is adequately controlled on current regimen. No change was made. Pure hypercholesterolemia 08/06/2014 Overview (12/31/2016): Pure hypercholesterolemia Assessment & Plan (05/04/2021 10:38 AM CDT): He is on low-dose statin therapy. He has previously not tolerated high-intensity therapy. Assessment & Plan (05/01/2020 11:03 AM CDT): He is on low intensity statin therapy intentionally because of myalgias. Assessment & Plan (11/01/2019 6:34 PM SALES CONSULTANT INSURANCE): On chronic lipid lowering therapy with good control. No changes made. Assessment & Plan (09/03/2019 6:06 PM SALES CONSULTANT INSURANCE): LDL is 109, above target. He is on only low-dose simvastatin because he developed myalgias on other statins. Assessment & Plan (08/14/2018 5:46 PM SALES CONSULTANT INSURANCE): On chronic lipid lowering therapy with good control. No changes made. Assessment & Plan (11/04/2017 10:06 AM SALES CONSULTANT INSURANCE): On chronic lipid lowering therapy with good control. No changes made. 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 (Primary Dx); Chronic diastolic (congestive) heart failure (HCC); Paroxysmal atrial fibrillation (HCC); Chronic heart failure with preserved ejection fraction (HCC) 12/18/2024 Telephone [facility] - Interventional Radiology [address] [place] [phone] Demetria Trujillo, RN 12/12/2024 Telephone [facility] - Interventional Radiology [address] [place] [phone] Demetria Trujillo, RN 12/10/2024 Telephone [facility] - Interventional Radiology [address] [place] [phone] Demetria Trujillo, RN 12/10/2024 Telephone [facility] - Interventional Radiology [address] [place] [phone] Demetria Trujillo, RN 12/07/2024 4:08 PM CDT - 12/08/2024 1:49 PM CDT Hospital Encounter [address] [phone] Renard Naylor DO Berhil, Anis, MD Renal mass, right Discharge Disposition: Discharge to home or self care 12/07/2024 1:11 PM CDT Anesthesia Event [facility] - Interventional Radiology [address] [place] [phone] Parish Ley DO Heckroth, John Arthur, MD 12/07/2024 Orders Only [address] [phone] Renard Naylor DO 12/07/2024 Orders Only [facility] - Interventional Radiology [address] [place] [phone] Annie Escobar, THAI Paroxysmal atrial fibrillation (HCC) 12/07/2024 Telephone [facility] - Interventional Radiology [address] [place] [phone] Demetria Trujillo RN 12/07/2024 Orders Only [facility] - Interventional Radiology [address] [place] [phone] Parish Mallory, THAI 12/07/2024 Orders Only [facility] - Interventional Radiology [address] [place] [phone] Santa Duval RN 12/06/2024 Orders Only [facility] - Interventional Radiology [address] [place] [phone] Annie Escobar, THAI 12/06/2024 Orders Only [facility] - Interventional Radiology [address] [place] [phone] Annie Escobar, THAI Right renal mass (Primary Dx); Paroxysmal atrial fibrillation (HCC) 12/06/2024 Orders Only [facility] - Interventional Radiology [address] [place] [phone] Parish Mallory, THAI 12/03/2024 Telephone [facility] - Interventional Radiology [address] [place] [phone] Demetria Trujillo RN 11/23/2024 Telephone [facility] Pre Anesthesia Testing [address] [place] [phone] Kathya Bowen, THAI 11/23/2024 Telephone [facility] - Interventional Radiology [address] [place] [phone] Demetria Trujillo RN 11/22/2024 12:15 PM SALES CONSULTANT INSURANCE Pre-Admission Testing [facility] Pre Anesthesia Testing [address] [place] [phone] Right renal mass; Paroxysmal atrial fibrillation (HCC); Shortness of breath; Hypoxemia; PARDEEP on CPAP 11/13/2024 Orders Only [facility] - Interventional Radiology [address] [place] [phone] Demetria Trujillo RN Right renal mass (Primary Dx); Paroxysmal atrial fibrillation (HCC); Shortness of breath; Hypoxemia; PARDEEP on CPAP 11/13/2024 Telephone [facility] - Interventional Radiology [address] [place] [phone] Demetria Trujillo RN 11/12/2024 12:37 PM SALES CONSULTANT INSURANCE - 11/12/2024 11:59 PM SALES CONSULTANT INSURANCE Hospital Encounter [facility] - Interventional Radiology [address] [place] [phone] Bryan Beckham MD Rostambeigi, Nassir, MD Right renal mass Discharge Disposition: Discharge to home or self care 11/09/2024 Telephone [facility] - Interventional Radiology [address] [place] [phone] Demetria Trujillo RN 11/02/2024 Orders Only [facility] - Interventional Radiology [address] [place] [phone] Demetria Trujillo RN 10/25/2024 - 10/25/2024 11:59 PM SALES CONSULTANT INSURANCE Hospital Encounter [facility] - Imaging [phone] Discharge Disposition: Discharge to home or self care from Last 3 Months Immunizations Immunization Administration Dates Next Due Influenza, Unspecified 06/26/2020 Surgical History Surgery Date Site/Laterality Comments OTHER SURGICAL HISTORY head surgery from accident OTHER SURGICAL HISTORY lymphnode biopsy CORONARY STENT PLACEMENT CHOLECYSTECTOMY TOTAL KNEE ARTHROPLASTY Bilateral Total Knee Replacement ANGIOPLASTY OTHER SURGICAL HISTORY CABG x5 CORONARY ARTERY BYPASS GRAFT EYE SURGERY HYDROCELE EXCISION / REPAIR CRYOABLATION RENAL RIGHT 12/07/2024 Right Medical History Medical History Date Comments Chronic coronary artery disease Coronary artery disease Hypertension Herniated disc, cervical Spinal stenosis Atrial fibrillation (HCC) Arthritis Low back pain GERD (gastroesophageal reflux disease) High cholesterol Hypothyroidism Sleep apnea [place] (myocardial infarction) (HCC) Sarcoidosis Chronic respiratory failure with hypoxia, on home O2 therapy (HCC) Cataract 2015 Heart disease 1982 Family History Medical History Relation Name Comments Heart disease Brother Diabetes Father Meng wilkerson Heart attack Father Meng wilkerson Myocardial I nfarction; Cancer Mother Heart disease Sister Relation Name Status Comments Brother Father Meng wilkerson Alive Mother Sister Social History Tobacco Use Types Packs/Day Years [...] often do you attend chur ch or latter day services? More than 4 times per year 06/17/2023 Do you belong to any clubs o r organizations such as mandaen groups, unions, fraternal or athletic groups, or [...] place to sleep or slept in a mcc (including now)? No 06/17/2023 Personal Safety Answer [...] on file Legal Sex Male 12:10 PM SALES CONSULTANT INSURANCE Gender Identity Not on file Sexual Orientation Not on file Obstetrics History Last Filed Vital Signs Vital Sign Reading [...] 12/18/2024 12:53 PM CDT Plan of Treatment Health Maintenance Due Date Last Done Comments Depression Screening 1940 DTaP/Tdap/Td Vaccine (1 - Tdap) 1951 Hepatitis B Screening 1958 Pneumococcal vaccine 65+ (1 of 2 - PCV) 1959 Zoster Vaccine (1 of 2) 1990 Well Visit 65+ 2005 Covid-19 Vaccine (2 - season) 2024 Influenza Vaccine (#1) 2024 06/26/2020 Fall Risk Assessment 12/08/2025 12/08/2024, 08/10/20 21 Goals Goal Patient Goal Type Associated Problems [...] the likelihood of falling Lifestyle No Sharmila Hernandez RN Note: Below are four things you [...] home safety. Medical Devices Implanted Type Area Aircraft Quality Control Inspector Device Identifier Shelf Expiration Date Model / [...] PM CDT EGFR STAT 11/22/2024 2:46 PM SALES CONSULTANT INSURANCE Right renal mass Paroxysmal atrial fibrillation (HCC) Shortness of breath Hypoxemia PARDEEP on CPAP BASIC METABOLIC PANEL STAT 11/22/2024 2:46 PM SALES CONSULTANT INSURANCE Right renal mass Paroxysmal atrial fibrillation (HCC) Shortness of breath Hypoxemia PARDEEP on CPAP DIFFERENTIAL AUTO STAT 11/22/2024 2:3 4 PM SALES CONSULTANT INSURANCE Right renal mass Paroxysmal atrial fibrillation (HCC) Shortness of breath Hypoxemia PARDEEP on CPAP CBC WITH AUTO DIFFERENTIAL STAT 11/22/2024 2:34 PM SALES CONSULTANT INSURANCE Right renal mass Paroxysmal atrial fibrillation (HCC) Shortness of breath Hypoxemia PARDEEP on CPAP PROTIME-INR STAT 11/22/2024 2:34 PM SALES CONSULTANT INSURANCE Right renal mass Paroxysmal atrial fibrillation (HCC) Shortness of breath Hypoxemia PARDEEP on CPAP CONSULT TO INTERVENTIONAL RADIOLOGY Schedule Routine, Read Routine (OP Routine) 11/12/2024 3:20 PM SALES CONSULTANT INSURANCE Right renal mass CT BODY OUTSIDE REFERENCE Routine 10/25/2024 12:00 AM SALES CONSULTANT INSURANCE from Last 3 Months Results * (ABNORMAL) [...] Palmer MD LAB BLOOD ORDERABLES Final Result [facility] [address] Department of Laboratories [place], [place] [id number] * (ABNORMAL) Differential, auto (12/08/2024 12:49 AM CDT) Neutrophil abs 11.4(H) 1.5 - 6.5 K/cumm Imm gran abs 0.1 0.0 - 0.1 K/cumm [facility] Lymphocyte abs 1.0 0.8 - 3.3 K/cumm [facility] Monocyte abs 0.4 0.2 - 0.8 K/cumm [facility] Eosinophil abs 0.0 0.0 - 0.5 K/cumm [facility] Basophil abs 0.0 0.0 - 0.1 K/cumm [facility] Neutrophil pct 88.4 % [facility] Comment: Interpretive Data Percent cell count reference ranges are not reported, since discordance with absolute values may lead to misinterpretation of CBC data. Current Interpretive Data was last revised on 2018. Imm gran pct 0.7 % [facility] Comment: Interpretive Data Percent cell count reference ranges are not reported, since discordance with absolute values may lead to misinterpretation of CBC data. Current Interpretive Data was last revised on 2018. Lymphocyte pct 7.5 % [facility] Comment: Interpretive Data Percent cell count reference ranges are not reported, since discordance with absolute values may lead to misinterpretation of CBC data. Current Interpretive Data was last revised on 2018. Monocyte pct 3.2 % [facility] Comment: Interpretive Data Percent cell count reference ranges are not reported, since discordance with absolute values may lead to misinterpretation of CBC data. Current Interpretive Data was last revised on 2018. Eosinophil pct 0.0 % [facility] Comment: Interpretive Data Percent cell count reference ranges are not reported, since discordance with absolute values may lead to misinterpretation of CBC data. Current Interpretive Data was last revised on 2018. Basophil pct 0.2 % [facility] Comment: Interpretive Data Percent cell count reference ranges are not reported, since discordance with absolute values may lead to misinterpretation of CBC data. Current Interpretive Data was last revised on 2018. Blood 12/08/2024 12:4 9 AM CDT 12/08/2024 1:48 AM CDT Roseanna Lugo MD LAB BLOOD ORDERABLES Final Resul t [facility] [address] Department [place] [address] * (ABNORMAL) CBC with auto differential (12/08/2024 12:49 AM CDT) [facility] WBC 12.9(H) 3.8 - 9.9 K/cumm Hgb 12.0(L) 13.0 - 17.5 g/dL [facility] Hct 37.9(L) 38.9 - 50.3 % [facility] Plt 184 150 - 400 K/cumm [facility] MPV 12.7(H) 9.1 - 12.3 fL [facility] RBC 4.04(L) 4.30 - 5.80 M/cumm [facility] MCV 93.8 81.3 - 96.4 fL [facility] MCH 29.7 27.1 - 33.3 pg [facility] MCHC 31.7(L) 32.3 - 35.7 g/dL [facility] RDW CV 13.6 11.1 - 14.9 % [facility] RDW SD 47.6 35.7 - 48.1 fL [facility] NRBC abs 0.00 0.00 - 0.01 K/cumm [facility] Blood 12/08/2024 12:4 9 AM CDT 12/08/2024 1:48 AM CDT Roseanna Lugo MD LAB BLOOD ORDERABLES Final Resul t [facility] [address] Department [place] [address] * (ABNORMAL) Basic metabolic panel (12/08/2024 12:49 AM CDT) [facility] Sodium 137 135 - 145 mmol/L Potassium, pl 4.1 3.3 - 4.9 mmol/L [facility] Chloride 97 97 - 110 mmol/L [facility] CO2 24 22 - 32 mmol/L [facility] Anion gap 16(H) 2 - 15 mmol/L [facility] BUN 22 6 - 25 mg/dL [facility] Creatinine 1.42(H) 0.80 - 1.30 mg/dL [facility] Glucose 178 70 - 199 mg/dL [facility] Comment: Interpretive Data Fasting glucose >/= 126 [...] 2022. Calcium 8.7 8.5 - 10.3 mg/dL [facility] Blood 12/08/2024 12:4 9 AM CDT 12/08/2024 1:47 AM CDT us Darvin Palmer MD LAB BLOOD ORDERABLES Final Result [facility] [address] Department [place] [address] * (ABNORMAL) CBC without differential (12/07/2024 7:52 PM CDT) WBC 12.4(H) 3.8 - 9.9 K/cumm Hgb 12.5(L) 13.0 - 17.5 g/dL [facility] Hct 39.2 38.9 - 50.3 % [facility] Plt 192 150 - 400 K/cumm [facility] MPV 12.5(H) 9.1 - 12.3 fL [facility] RBC 4.18(L) 4.30 - 5.80 M/cumm [facility] MCV 93.8 81.3 - 96.4 fL [facility] MCH 29.9 27.1 - 33.3 pg [facility] MCHC 31.9(L) 32.3 - 35.7 g/dL [facility] RDW CV 13.8 11.1 - 14.9 % [facility] RDW SD 46.9 35.7 - 48.1 fL [facility] NRBC abs 0.00 0.00 - 0.01 K/cumm [facility] Blood 12/07/2024 7:52 PM CDT 12/07/2024 8:00 PM CDT us Roseanna Lugo MD LAB BLOOD ORDERABLES Final Resul t Performing Organization Address City/[facility]/ZIP Co de Phone Number [facility] [address] Department [place] [address] * (ABNORMAL) CBC without differential (12/07/2024 4:04 PM CDT) WBC 8.9 3.8 - 9.9 K/cumm Hgb 11.9(L) 13.0 - 17.5 g/dL [facility] Hct 37.1(L) 38.9 - 50.3 % [facility] Plt 156 150 - 400 K/cumm [facility] MPV 12.6(H) 9.1 - 12.3 fL [facility] RBC 3.92(L) 4.30 - 5.80 M/cumm [facility] MCV 94.6 81.3 - 96.4 fL [facility] MCH 30.4 27.1 - 33.3 pg [facility] MCHC 32.1(L) 32.3 - 35.7 g/dL [facility] RDW CV 13.8 11.1 - 14.9 % [facility] RDW SD 47.8 35.7 - 48.1 fL [facility] NRBC abs 0.00 0.00 - 0.01 K/cumm [facility] Blood 12/07/2024 4:04 PM CDT 12/07/2024 4:21 PM CDT Narrative [facility] - 12/07/2024 4:28 PM CDT 6 Hours post procedure. us Darvin Palmer MD LAB BLOOD ORDERABLES Final Result Performing Organization Address [facility]/ZIP Co de Phone Number [facility] [address] Department [place] [address] * IR Cryoablation Renal Right (12/07/2024 3:27 [...] was obtained. Prior to beginning the procedure, [place] Protocol was performed to confirm the patient?s [...] 17-gauge Core Biopsy Needle: 18 gauge Bard Montgomery [address] guidance, 2 [...] was obtained. Prior to beginning the procedure, [place] Protocol was performed to confirm the patient?s [...] 17-gauge Core Biopsy Needle: 18 gauge Bard Montgomery [address] guidance, 2 [...] therapy. Electronically signed by: Darvin Palmer M.D. us Darvin Palmer MD IMG IR PROCEDURES Final Re sult * Surgical pathology (12/07/2024 2:20 PM CDT) Tissue (Kidney biopsy, tumor/mass) 12/07/2024 2:20 PM CDT Narrative PATHOLOGY [facility] - 12/10/2024 5:01 PM CDT [address] [address] Tele: Maggi Roque MD - Personal Lines Underwriter Note to Patients: This report may contain [...] PATHOLOGY REPORT Patient Name: JUAN WILKERSON Address: [address] [place] [address] Gender: M : 1940 (Age: 84) Service: Medical Location: [place] [address], Hospital #: [id number] Patient Type: [facility] IN BED Taken: 12/07/2024 Received 12/07/2024 [...] filtered and submitted entirely in cassette A1. JAP,[facility] MICROSCOPIC DESCRIPTION: Microscopic examination shows solid nests [...] renal cell carcinoma. Clerical Data Follows A; 10934, 44115, 99662(5) REPORT IMAGES AND/OR SCANNED DOCUMENTS ONLY VIEWABLE IN PDF FORMAT The immunohistochemical test(s) cited in this report, if any, was developed and its performance characteristics determined by [facility] Pathology Department. It has not been cleared or approved by the U.S. Food and Drug Administration. The FDA has determined that such clearance or approval is not necessary. This test is used for clinical purposes. It should not be regarded as investigational or for research. [facility] Laboratory is certified under the Clinical [...] or completely in the following laboratories: [facility], [facility] [place][note 2]5 [facility], [address], [address] [place] [address], [place] [address]. us Darvin Palmer MD LAB PATHOLOGY ORDERABLES F inal Result PATHOLOGY [facility] Laboratory Receiving [address] [place], [place] [id number] * [place] AN ELECTIVE ENDOTRACHEAL AIRWAY, [place] AN PROCEDURE PLACEHOLDER (12/07/2024 1:33 PM CDT) Narrative NnamdiLyndseyNadja, CRNA - 12/07/2024 1:33 PM CDT Lyndsey CotoHUA 12/07/2024 1:34 PM Airway Patient location: OR Urgency: elective Indications for airway management: anesthesia Difficult airway: no Staff: Placed by: CLAY WASHER: yLndsey Coto CRNA Emergent airway documentation: Risks and [...] Atraumatic - lips, gums, teeth as preop Gee Montemayor MD ANESTHESIA ORDERABLES Fi nal Result * (ABNORMAL) eGFR (11/22/2024 2:46 PM SALES CONSULTANT INSURANCE) eGFR 57(L) >=60 mL/min/1. 73 m2 Comment: [...] of Race in Diagnosing Kidney Disease, JASN 2021). The CKD-EPI equation should not be used for patients with unstable renal function and has not been validated in children and those over 70. Current interpretive data was last reviewed 2021. Blood 11/22/2024 2:46 PM SALES CONSULTANT INSURANCE 11/22/2024 2:46 PM SALES CONSULTANT INSURANCE Darvin Palmer MD LAB BLOOD ORDERABLES Final Result [facility] [address] Department [place] [address] * Basic metabolic panel (11/22/2024 2:46 PM SALES CONSULTANT INSURANCE) Sodium 141 135 - 145 mmol/L Potassium, pl 3.3 3.3 - 4.9 mmol/L [facility] Chloride 100 97 - 110 mmol/L [facility] CO2 27 22 - 32 mmol/L [facility] Anion gap 14 2 - 15 mmol/L [facility] BUN 22 6 - 25 mg/dL [facility] ([facility]) Creatinine 1.24 0.80 - 1.30 mg/dL [facility] ([facility]) Glucose 108 70 - 199 mg/dL [facility] ([facility]) Comment: Interpretive Data Fasting glucose >/= 126 [...] 2022. Calcium 8.6 8.5 - 10.3 mg/dL [facility] ([facility]) Blood 11/22/2024 2:46 PM SALES [employer]ANT INSURANCE 11/22/2024 2:46 PM SALES CON[employer]ANT INSURANCE Darvin Palmer MD LAB BLOOD ORDERABLES Final Result [facility] ([facility]) [address] Department [place] [address] * (ABNORMAL) Differential, auto (11/22/2024 2:34 PM [employer]URANCE) Neutrophil abs 3.1 1.5 - 6.5 K/cumm Imm gran abs 0.0 0.0 - 0.1 K/cumm [facility] ([facility]) Lymphocyte abs 1.8 0.8 - 3.3 K/cumm [facility] ([facility]) Monocyte abs 0.9(H) 0.2 - 0.8 K/cumm [facility] ([facility]) Eosinophil abs 0.2 0.0 - 0.5 K/cumm [facility] ([facility]) Basophil abs 0.0 0.0 - 0.1 K/cumm [facility] ([facility]) Neutrophil pct 50.7 % [facility] ([facility]) Comment: Interpretive Data Percent cell count reference ranges are not reported, since discordance with absolute values may lead to misinterpretation of CBC data. Current Interpretive Data was last revised on 2018. Imm gran pct 0.5 % [facility] ([facility]) Comment: Interpretive Data Percent cell count reference ranges are not reported, since discordance with absolute values may lead to misinterpretation of CBC data. Current Interpretive Data was last revised on 2018. Lymphocyte pct 29.5 % [facility] ([facility]) Comment: Interpretive Data Percent cell count reference ranges are not reported, since discordance with absolute values may lead to misinterpretation of CBC data. Current Interpretive Data was last revised on 2018. Monocyte pct 15.3 % [facility] ([facility]) Comment: Interpretive Data Percent cell count reference ranges are not reported, since discordance with absolute values may lead to misinterpretation of CBC data. Current Interpretive Data was last revised on 2018. Eosinophil pct 3.5 % [facility] ([facility]) Comment: Interpretive Data Percent cell count reference ranges are not reported, since discordance with absolute values may lead to misinterpretation of CBC data. Current Interpretive Data was last revised on 2018. Basophil pct 0.5 % [facility] ([facility]) Comment: Interpretive Data Percent cell count reference ranges are not reported, since discordance with absolute values may lead to misinterpretation of CBC data. Current Interpretive Data was last revised on 2018. Blood 11/22/2024 2:34 PM SALES CONSULTANT INSURANCE 11/22/2024 2:34 PM SALES CON[employer]ANT INSURANCE Darvin Palmer MD LAB BLOOD ORDERABLES Final Result Performing Organization Address [facility] Co de Phone Number [facility] [address] [place] [address] * (ABNORMAL) CBC with auto differential (11/22/2024 2:34 PM [employer]ES [employer] INSURANCE) WBC 6.0 3.8 - 9.9 K/cumm Hgb 12.0(L) 13.0 - 17.5 g/dL [facility]) Hct 37.7(L) 38.9 - 50.3 % [facility]) Plt 174 150 - 400 K/cumm [facility]) MPV 12.9(H) 9.1 - 12.3 fL [facility]) RBC 4.05(L) 4.30 - 5.80 M/cumm [facility]) MCV 93.1 81.3 - 96.4 fL [facility]) MCH 29.6 27.1 - 33.3 pg [facility]) MCHC 31.8(L) 32.3 - 35.7 g/dL [facility]) RDW CV 13.5 11.1 - 14.9 % [facility]) RDW SD 46.1 35.7 - 48.1 fL [facility]) NRBC abs 0.00 0.00 - 0.01 K/cumm [facility]) Blood 11/22/2024 2:34 PM SALES CONSULTANT INSURANCE 11/22/2024 2:34 PM SALES CONSULTANT INSURANCE Darvin Palmer MD LAB BLOOD ORDERABLES Final Result [facility] [address] Department [place], [place] [id number] * (ABNORMAL) Protime-INR (11/22/2024 2:34 PM SALES CONSULTANT INSURANCE) PT 14.6(H) 9.7 - 13.0 sec INR 1.34(H) 0.90 - 1.20 [facility] Comment: Interpretive data Oral anticoagulant therapeutic ranges: Venous thromboembolism prophylaxis or treatment: 2.0-3.0 CARDIOLOGY Standard range: 2.0-3.0 High-intensity range: 2.5-3.5 Refer to indication-specific guidelines for appropriate target ranges for prosthetic heart valve replacement. Current interpretive data was last revised on 2019. Blood 11/22/2024 2:34 PM SALES CONSULTANT INSURANCE 11/22/2024 2:34 PM SALES CONSULTANT INSURANCE us Darvin Palmer MD LAB BLOOD ORDERABLES Final Result [facility] [address] Department [place] [address] * Consult to Interventional Radiology (11/12/2024 3:20 PM SALES CONSULTANT INSURANCE) Anatomical Region Laterality Modality N/A X-Ray Angiograph y 11/12/2024 4:14 PM SALES CONSULTANT INSURANCE Impressions 11/12/2024 4:14 PM SALES CONSULTANT INSURANCE Percutaneous cryoablation of the right renal mass is discussed with the patient who is a good candidate for it. Complete details regarding this office visit can be found in [facility] under the Notes tab. Electronically signed by: Darvin Palmer M.D. Narrative 11/12/2024 4:14 PM SALES CONSULTANT INSURANCE EXAMINATION: [facility] VISIT HISTORY: 84-year-old male patient with a right renal mass. He is a very good candidate for percutaneous ablation Procedure Note Darvin Palmer MD - 11/12/2024 EXAMINATION: [facility] VISIT HISTORY: 84-year-old male patient with a right renal mass. He is a very good candidate for percutaneous ablation IMPRESSION: Percutaneous cryoablation of the right renal mass is discussed with the patient who is a good candidate for it. Complete details regarding this office visit can be found in [facility] under the Notes tab. Electronically signed by: Darvin Palmer M.D. us Bryan Beckham MD IMG IR PROCEDURES Final Result * CT Body Outside Reference (10/25/2024 12:00 AM SALES CONSULTANT INSURANCE) Narrative RAD_[email or web address] - 11/01/2024 9:16 AM SALES CONSULTANT INSURANCE This order has been auto-finalized and does not contain a result. us Provider Transcribed Order IMG CT PROCEDURES Fin al Result RAD_PACS_OUTSIDE_FILM_[facility] from Last 3 Months Insurance MEDICARE [facility] [employer] Advance Directives For more information, please contact: [phone] * Full Code (Latest Code Status on [...] 6:28 PM 06/06/2023 4:36 AM Care Teams Rug Layer Relationship Specialty Start Date End Date Gray Lewis MD [address] [place] [address] PCP - General 09/05/13 Yoel Siu MD [address] [facility] [address] [place] [address] Consulting Physician Cardiovascular Disease 06/06/23
--- NOTE | 2024-12-24 22:02 | ADMGEN ---
This patient, Manolo Agrawal, was admitted to Medical Room 347-. Patient/family oriented to hospital policies and general routines including ID bracelet, bed and alarms, visiting hours, pain management, procedures, bathroom and other care routines, personal items, smoking policy, room service/diet, and visiting hours. Information on how to activate the Rapid Response Team has been discussed. Patient/Family are encouraged to report perceived risks to care and to ask questions if they do not understand what they are told or what they should do.
[2024-12-25] VITALS (14 sets, daily range): BP systolic 93–187; BP diastolic 52–89; PULSE 48–85; RESP 16–20; TEMP 35.9–36.8; O2SAT 93–100
--- NOTE | 2024-12-25 02:47 | PM.IMHP ---
H&P: HPI History of Present Illness Date/Time: 12/25/24 02:47 Chief Complaint: ?I think I had a stroke? 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 The patient reportedly last felt normal was right before midnight on the . He woke up at 07:30 on the and noticed that his left leg was cramping and tingling the tingling and cramping then proceeded to climb up is body into his left arm shoulder and face, he felt that his face was not quite right. He reports that he has been having a lot of of muscle cramping ever since he had his cryoablation 2 weeks ago. However this time he he has had the sensation of tingling and paresthesias. He reports that all of his paresthesias and muscle symptoms have now resolved except for his thumb on his left hand feels numb. He has good head of talent management strength with no evidence of dysmetria. He feels as if he was dragging his leg on the left side. He is not sure if this is due to cramping or something else. He has not had any lower extremity weakness. He denies any headaches or visual changes. He denies known history of prior strokes but is CT of the brain did demonstrate old infarcts in the right and left frontal lobe and left parietal lobe. His EKG demonstrated sinus bradycardia. His labs were unremarkable except for some increase in creatinine but last known baseline of patient's creatinine was almost a year ago. He denies any dysuria urinary frequency. He denies sensation of incomplete bladder emptying. He reports that he has been on a Medrol Dosepak and has 4 days left of the Dosepak. He was on the Dosepak when he developed a rash a few days after his cryoablation. It was presumed that the rash may have been due to the 1 dose of Cipro he received preoperatively. However he thinks that the rash may have been due to some macadamia nuts that he ate just prior to the development of the rash. The rash had dissipated several days ago. He reports that his appetite has been extreme since he has been on steroids. Review of Systems Review of Systems: 12 systems were reviewed with pertinent positives and negatives per HPI. Except as documented in the HPI, all other systems were reviewed and are negative. FORMERLY [facility], [facility] Past Medical History Medical History Chronic respiratory failure with hypoxia Hypothyroidism, unspecified Sarcoidosis Chronic kidney disease, stage 3a Male erectile dysfunction, unspecified Renal cell carcinoma of right kidney Pure hypercholesterolemia, unspecified Paroxysmal atrial fibrillation Chronic diastolic heart failure GERD (gastroesophageal reflux disease) Surgical History Surgical History History of cholecystectomy (2007) History of total right knee replacement (2010) History of prosthetic unicompartmental arthroplasty of knee () left medial 2012 History of hydrocelectomy (05/2020) History of PTCA Hx of CABG (2014) Family History Family History Father Acute myocardial infarction Cerebrovascular accident Diabetes mellitus Mother Cancer Social History Social History Social History: Is the patient lives with his of over 60 years. He is a lifelong nonsmoker and denies any history of alcohol use or illicit substance use. 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 Code status: Full code Surrogate decision maker: Smoking status: Never smoker Second hand tobacco smoke exposure: Yes Alcohol intake: never Substance use: never Do You Feel Safe in your Home?: Yes Lack of Transportation: No Lack of Food: Never True Current Housing: I Have Housing Concerned About Future Housing: No Difficulty Paying Gas/Electric Bills: No Difficulty Paying for Meds: No Currently Unemployed: No Education: Associate Degree Difficulty w/ Childcare or Family Care: No Spiritual care concerns: No Meds Home Medications and Allergies Home Medications ?Medication ?Instructions ?Recorded ?Confirmed ?Type glucosamine sulfate 500 mg tablet 1,500 mg PO DAILY 11/06/21 12/24/24 History (Glucosamine) isosorbide mononitrate 30 mg 30 mg PO DAILY 11/06/21 12/24/24 History tablet,extended release 24 hr multivitamin with iron 1 tablet PO DAILY 11/06/21 12/24/24 History aspirin 81 mg capsule 81 mg PO DAILY 02/15/22 12/24/24 History apixaban 5 mg tablet 5 mg PO BID 07/01/23 12/24/24 History metoprolol succinate 50 mg 50 mg PO DAILY 07/01/23 12/24/24 History tablet,extended release 24 hr atorvastatin 10 mg tablet See Rx Instructions .Route 11/20/24 12/24/24 Rx .COMPLEX #90 tabs levothyroxine 50 mcg tablet See Rx Instructions .Route 11/20/24 12/24/24 Rx .COMPLEX #90 tabs omeprazole 40 mg capsule,delayed See Rx Instructions .Route 11/20/24 12/24/24 Rx release .COMPLEX #90 caps terazosin 5 mg capsule See Rx Instructions .Route 11/20/24 12/24/24 Rx .COMPLEX #90 caps prednisone 10 mg tablet See Rx Instructions PO DIRECTED 12/17/24 12/24/24 Rx #30 tabs probenecid 500 mg tablet See Rx Instructions .Route 12/18/24 12/24/24 Rx .COMPLEX #90 tabs furosemide 40 mg tablet 40 mg PO BID 12/24/24 12/24/24 History Allergies Allergy/AdvReac Type Severity Reaction Status Date / Time iodine Allergy Severe HIVES, IVP Verified 12/17/24 09:45 DYE ciprofloxacin Allergy Intermediate Hives Verified 12/24/24 16:14 Penicillins Allergy Mild SWELLING/HI Verified 12/17/24 09:45 VES Quinolones AdvReac Severe Hives Verified 12/17/24 09:45 Sulfa (Sulfonamide AdvReac Severe CRAMPING Verified 12/17/24 09:45 Antibiotics) N/V sulfamethoxazole AdvReac Severe CRAMPING Verified 12/17/24 09:45 N/V trimethoprim AdvReac Severe CRAMPING Verified 12/17/24 09:45 N/V Contrast Media Allergy Severe HIVES Uncoded 12/17/24 09:45 DIDOFENAC AdvReac Severe NAUSEA/VOMI Uncoded 12/17/24 09:45 TING Vital Signs Vital Signs - 24 hr 12/24/24 14:17 12/24/24 14:17 12/24/24 16:22 Temperature 97.5 F L Pulse Rate 65 65 55 L Respiratory Rate 18 16 17 Blood Pressure 204/79 H 204/79 H 205/75 H Pulse Oximetry 98 98 98 Oxygen Delivery Nasal Cannula Oxygen Flow Rate 2 2 12/24/24 16:50 12/24/24 18:12 12/24/24 18:18 Temperature Pulse Rate 56 L 56 L 56 L Respiratory Rate 18 17 17 Blood Pressure 167/97 H 146/70 H 153/82 H Pulse Oximetry 96 97 97 Oxygen Delivery Oxygen Flow Rate 2 12/24/24 19:13 12/24/24 19:14 12/24/24 19:18 Temperature 98.1 F Pulse Rate 57 L 59 L Respiratory Rate 17 Blood Pressure 186/80 H Pulse Oximetry 98 99 Oxygen Delivery Nasal Cannula Oxygen Flow Rate 3 12/24/24 20:56 12/24/24 21:42 12/25/24 00:00 Temperature 98.1 F Pulse Rate 57 L 56 L 53 L Respiratory Rate 24 H 25 H Blood Pressure 186/67 H 161/72 H Pulse Oximetry 98 98 Oxygen Delivery Oxygen Flow Rate Exam Narrative: Weight 94.1 kg BMI 30.6 Const: Other: Obese, no acute distress, appears stated age HENMT: Other: Mucous membranes are tacky, no oral pharyngeal erythema, crowded posterior oropharynx Eyes: Other: Pupils are equal and reactive, no scleral icterus, no conjunctival pallor, extraocular movements intact Neck: Other: No JVD, large neck circumference Resp: Other: Clear to auscultation bilaterally, no increased work of breathing Cardio: Other: Mildly bradycardic, regular rhythm, 2+ bilateral radial pedal pulses GI: Other: Soft, obese, nontender Skin: Other: No jaundice, no pallor Neuro: Other: Alert oriented x4, speech is clear, no facial asymmetry, no pronator drift of upper lower extremities, extraocular movements intact, cranial nerves 2-12 grossly intact, decreased sensation to the left thumb, normal tone, normal reflexes, no dysmetria of upper or lower extremities Extrem: Other: No clubbing, cyanosis or edema, 5/5 strength Psych: Other: Appropriate mood and affect, pleasant and cooperative, judgment and insight intact H&P: Results Labs Labs: Laboratory Tests 12/24/24 15:43 12/24/24 15:43 12/24/24 12/24/24 14:18 15:43 WBC 9.9 RBC 4.10 L Hgb 12.0 L Hct 37.3 L MCV 91.0 MCH 29.3 MCHC 32.2 RDW 13.9 Plt Count 210 MPV 11.4 H Immature Gran % (Auto) 2.8 H Neut % (Auto) 81.2 H Lymph % (Auto) 10.6 L [place] % (Auto) 4.6 Eos % (Auto) 0.4 Baso % (Auto) 0.4 Lymph # (Auto) 1.05 [place] # (Auto) 0.5 Eos # (Auto) 0.0 Baso # (Auto) 0.0 Abs Immat Gran (auto) 0.28 H Absolute Neuts (auto) 8.0 H Absolute Nucleated RBC 0.000 Nucleated RBC % 0.0 PT 14.5 INR 1.1 APTT 26.4 Sodium 136 L Potassium 4.0 Chloride 95 L Carbon Dioxide 32 H Anion Gap 9 BUN 34 H Creatinine 1.38 H Estim Creat Clear Calc 41 Estimated GFR 49 L Glucose 177 H POC Capillary Glucose 184 H Calcium 8.8 Total Bilirubin 0.7 AST 21 ALT 39 Alkaline Phosphatase 80 Troponin I < 0.012 Total Protein 7.0 Albumin 4.0 Impressions Chest X-Ray 12/24/24 15:52 IMPRESSION: 1. Mild atelectasis at left lung base. Head CT 12/24/24 16:00 IMPRESSION: 1. Old infarcts in the brain. 2. Moderate nonspecific cerebral white matter disease, which likely represents chronic small vessel ischemic disease. Carotid Doppler Study 12/24/24 20:26 IMPRESSION: 1. Less than 50% stenosis in the right internal carotid artery. 2. Less than 50% stenosis in the left internal carotid artery. EKG: Sinus bradycardia, left ventricular hypertrophy with ST and T-wave changes, possible septal in my age indeterminate, QTC 400 All imaging and EKGs personally reviewed and interpreted. And unless stated otherwise agree with radiologic and cardiology interpretation. Assessment and Plan Assessment and plan (1) Acute CVA (cerebrovascular accident): Code(s): I63.9 - Cerebral infarction, unspecified Status: Acute (2) Chronic respiratory failure with hypoxia: Code(s): J96.11 - Chronic respiratory failure with hypoxia Status: Acute (3) PARDEEP (obstructive sleep apnea): Code(s): G47.33 - Obstructive sleep apnea (adult) (pediatric) Status: Acute Plan The patient has been admitted for MRI to rule out acute CVA. The patient has had near resolution of his symptoms. CTA of the head and neck demonstrated no severe stenosis or evidence of dissection. Will continue monitor neuro checks. Neurology has been consulted. Patient is already on maximum prophylactic therapy with Eliquis and aspirin. The patient has been having intermittent hypertension will allow for permissive hypertension due to possible acute CVA. Will resume home antihypertensives. The patient is on chronic home O2 of 2 L during the day and 4 L at night with bleed in through his CPAP. Home CPAP has been ordered. He has not had any increased oxygen requirements fever chills or cough to suggest acute pneumonia. X-ray findings are likely due to atelectasis. Will order incentive spirometry. The patient does have acute kidney injury on chronic kidney disease possibly associated with his recent cryoablation. Will hold home Lasix and will repeat electrolyte panel in a.m.. Quality VTE Prophylaxis VTE prophylaxis: pharmacologic ordered (Continue home Eliquis) Hospitalist [facility] Advance Care Plan I have confirmed that the patient's Advanced Care Plan is present, code status is documented, or surrogate decision maker is listed in patient medical record.: Yes Medication Reconciliation I have utilized all available resources to obtain, update and review the patients current medications (includes all prescriptions, OTC, herbals, cannabis, and nutritional supplements).: Yes
[2024-12-25] MEDS: LEVOTHYROXINE SODIUM 50 MCG TABLET PO (06:14)
[2024-12-25 08:35] LABS: Hematocrit 36.8 % (42.0-52.0); Hemoglobin 12.1 g/dL (14.0-18.0); Mean Corpuscular HGB Conc 32.9 g/dl (32-36); Mean Corpuscular Hemoglobin 29.7 pg (26-34); Mean Corpuscular Volume 90.4 fl (80-100); Mean Platelet Volume 11.8 fl (7.4-10.4); Platelet Count Result 219 k/mm3 (150-375); Red Blood Count 4.07 M/mm3 (4.6-6.20)
[2024-12-25 08:46] LABS: Anion Gap 6 mmol/L (4-12); Blood Urea Nitrogen 29 mg/dL (9-20); Calcium 8.8 mg/dL (8.4-10.2); Carbon Dioxide 33 mmol/L (22-30); Chloride 98 mmol/L (98-107); Estimated CRCL calculation 46 ml/min; Estimated Glomerular Filt Rate 58; Glucose 109 mg/dL (65-110); Potassium 3.4 mmol/L (3.4-5.0); Sodium 137 mmol/L (137-145)
[2024-12-25] MEDS: ATORVASTATIN 10 MG TABLET PO (10:04)
[2024-12-25] MEDS: ASPIRIN 81 MG ENTERIC TABLET PO (10:04)
[2024-12-25] MEDS: APIXABAN 5 MG TABLET PO ×2 (10:05→19:56)
[2024-12-25] MEDS: THERAPEUTIC MULTIVITAMINS/MINERALS TAB (*BKC) 1 TABLET PO (10:05)
[2024-12-25] MEDS: METOPROLOL SUCCINATE EXT REL 50 MG TABCR PO (10:05)
[2024-12-25] MEDS: ISOSORBIDE MONONITRATE 30 MG TAB.ER.24H PO (10:05)
[2024-12-25] MEDS: PANTOPRAZOLE 40 MG TABLET PO ×2 (10:06→17:53)
[2024-12-25] MEDS: TERAZOSIN HCL 5 MG CAPSULE PO (10:08)
[2024-12-25] MEDS: diphenhydrAMINE HCl CAP 25 MG CAPSULE PO (11:14)
--- NOTE | 2024-12-25 11:34 | P.CONNEU_ITS ---
Assessment and Plan Assessment and plan (1) Acute CVA (cerebrovascular accident): Code(s): I63.9 - Cerebral infarction, unspecified Status: Acute Plan 1. Right thalamic acute a small infarct on the basis of small-vessel disease and documented carotid ultrasound less than 50% stenosis bilaterally, patient is being continued on apixaban along with the other medications, including atorvastatin mg daily and recommendation to follow up with family ph Consult date: 12/26/24 HPI: Manolo Agrawal is a 84 year old male admitted to the hospital through the emergency room with complaints of cramping in his left lower extremity calf along the numbness from the left lower extremity up onto the left upper extremity along with the involvement of the left face as well. No history of previous cerebrovascular accident but did mention that when he is walking he feels as if he is dragging his left lower extremity. He is on Eliquis, has history of renal cell carcinoma, and has underwent cryoablation treatment about 2 weeks ago in addition he mentioned he could be allergic to iodine and has to be pretreated. His medications included isosorbide 30mg daily, aspirin 81mg daily, apixaban 5mg twice a day, metoprolol 50mg daily, he is documented to have multiple allergies particularly iodine, Cipro, penicillin, quinolone, sulfa, contrast media, he does have a history of renal cell carcinoma of the right kidney, paroxysmal atrial fibrillation, chronic diastolic heart failure, and has also undergone total right knee replacement in 2010 and left knee unicompartmental arthroplasty, and history of CABG, in addition to the acute myocardial infarction and diabetes mellitus, he is a former alcohol intake or and never smoker. His evaluation up until now revealed him to have blood pressure of 204/79, normal CBC, BMP blood sugar of 177 sodium 136, months scanned normal, chest x-ray with mild atelectasis left lung base, head CT scans old infarct in the brain with cerebral white matter disease, Doppler study of the carotid negative, EKG without atrial fibrillation, Review of Systems 2 Review of Systems: All systems reviewed & are unremarkable except as noted in HPI and below PMFSH Past Medical History Medical History Chronic respiratory failure with hypoxia Hypothyroidism, unspecified Sarcoidosis Chronic kidney disease, stage 3a Male erectile dysfunction, unspecified Renal cell carcinoma of right kidney Pure hypercholesterolemia, unspecified Paroxysmal atrial fibrillation Chronic diastolic heart failure GERD (gastroesophageal reflux disease) Surgical History Surgical History History of cholecystectomy (2007) History of total right knee replacement (2010) History of prosthetic unicompartmental arthroplasty of knee (~2011) left medial 2012 History of hydrocelectomy (05/2020) History of PTCA Hx of CABG (2014) Family History Family History Father Acute myocardial infarction Cerebrovascular accident Diabetes mellitus Mother Cancer Social History Social History Social History: Is the patient lives with his of over 60 years. He is a lifelong nonsmoker and denies any history of alcohol use or illicit substance use. 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 Code status: Full code Surrogate decision maker: Smoking status: Never smoker Second hand tobacco smoke exposure: Yes Alcohol intake: never Substance use: never Do You Feel Safe in your Home?: Yes Lack of Transportation: No Lack of Food: Never True Current Housing: I Have Housing Concerned About Future Housing: No Difficulty Paying Gas/Electric Bills: No Difficulty Paying for Meds: No Currently Unemployed: No Education: Associate Degree Difficulty w/ Childcare or Family Care: No Spiritual care concerns: No Meds Home Medications and Allergies Home Medications ?Medication ?Instructions ?Recorded ?Confirmed ?Type glucosamine sulfate 500 mg tablet 1,500 mg PO DAILY 11/06/21 12/24/24 History (Glucosamine) isosorbide mononitrate 30 mg 30 mg PO DAILY 11/06/21 12/24/24 History tablet,extended release 24 hr multivitamin with iron 1 tablet PO DAILY 11/06/21 12/24/24 History aspirin 81 mg capsule 81 mg PO DAILY 02/15/22 12/24/24 History apixaban 5 mg tablet 5 mg PO BID 07/01/23 12/24/24 History metoprolol succinate 50 mg 50 mg PO DAILY 07/01/23 12/24/24 History tablet,extended release 24 hr atorvastatin 10 mg tablet See Rx Instructions .Route 11/20/24 12/24/24 Rx .COMPLEX #90 tabs levothyroxine 50 mcg tablet See Rx Instructions .Route 11/20/24 12/24/24 Rx .COMPLEX #90 tabs omeprazole 40 mg capsule,delayed See Rx Instructions .Route 11/20/24 12/24/24 Rx release .COMPLEX #90 caps terazosin 5 mg capsule See Rx Instructions .Route 11/20/24 12/24/24 Rx .COMPLEX #90 caps prednisone 10 mg tablet See Rx Instructions PO DIRECTED 12/17/24 12/24/24 Rx #30 tabs probenecid 500 mg tablet See Rx Instructions .Route 12/18/24 12/24/24 Rx .COMPLEX #90 tabs furosemide 40 mg tablet 40 mg PO BID 12/24/24 12/24/24 History Allergies Allergy/AdvReac Type Severity Reaction Status Date / Time iodine Allergy Severe HIVES, IVP Verified 12/17/24 09:45 DYE ciprofloxacin Allergy Intermediate Hives Verified 12/24/24 16:14 Penicillins Allergy Mild SWELLING/HI Verified 12/17/24 09:45 VES Quinolones AdvReac Severe Hives Verified 12/17/24 09:45 Sulfa (Sulfonamide AdvReac Severe CRAMPING Verified 12/17/24 09:45 Antibiotics) N/V sulfamethoxazole AdvReac Severe CRAMPING Verified 12/17/24 09:45 N/V trimethoprim AdvReac Severe CRAMPING Verified 12/17/24 09:45 N/V Contrast Media Allergy Severe HIVES Uncoded 12/17/24 09:45 DIDOFENAC AdvReac Severe NAUSEA/VOMI Uncoded 12/17/24 09:45 TING Vital Signs Vital Signs - 24 hr 12/24/24 14:17 12/24/24 14:17 12/24/24 16:22 Temperature 36.4 C L Pulse Rate 65 65 55 L Respiratory Rate 18 16 17 Blood Pressure 204/79 H 204/79 H 205/75 H Pulse Oximetry 98 98 98 Oxygen Delivery Nasal Cannula Oxygen Flow Rate 2 2 12/24/24 16:50 12/24/24 18:12 12/24/24 18:18 Temperature Pulse Rate 56 L 56 L 56 L Respiratory Rate 18 17 17 Blood Pressure 167/97 H 146/70 H 153/82 H Pulse Oximetry 96 97 97 Oxygen Delivery Oxygen Flow Rate 2 12/24/24 19:13 12/24/24 19:14 12/24/24 19:18 Temperature 36.7 C Pulse Rate 57 L 59 L Respiratory Rate 17 Blood Pressure 186/80 H Pulse Oximetry 98 99 Oxygen Delivery Nasal Cannula Oxygen Flow Rate 3 12/24/24 20:56 12/24/24 21:42 12/24/24 23:30 Temperature 36.7 C Pulse Rate 57 L 56 L Respiratory Rate 24 H 25 H Blood Pressure 186/67 H 161/72 H Pulse Oximetry 98 98 95 Oxygen Delivery CPAP Oxygen Flow Rate 12/25/24 00:00 12/25/24 02:55 12/25/24 04:00 Temperature 36.1 C L Pulse Rate 53 L 54 L 48 L Respiratory Rate 20 Blood Pressure 104/89 Pulse Oximetry 99 Oxygen Delivery Oxygen Flow Rate 12/25/24 06:00 12/25/24 10:05 Temperature 36.1 C L Pulse Rate 50 L 71 Respiratory Rate 20 Blood Pressure 187/61 H Pulse Oximetry 100 Oxygen Delivery Oxygen Flow Rate Exam 2 Narrative: revealed him to be awake alert cooperative in no obvious acute distress, head normocephalic with no bruit, ear nose throat examination normal, thyromegaly no lymphadenopathy no cervical bruits, heart regular with no murmur, lungs clear to auscultation with no rhonchi or crepitation, abdomen soft with no organomegaly but obese and nontender, neurologically awake alert oriented speech not dysphasic not dysarthric not dysphonic pupils round regular feels the vision full extraocular movements full face symmetrical tongue midline motor examination revealed him to have no drift of 1 or other side reflexes symmetrical plantars downgoing. Results Labs 12/25/24 08:28 12/26/24 05:26 Labs: Short CBC 12/24/24 12/25/24 Range/Units 15:43 08:28 WBC 9.9 11.0 H (4.5-10.0) K/mm3 Hgb 12.0 L 12.1 L (14.0-18.0) g/dL Hct 37.3 L 36.8 L (42.0-52.0) % Plt Count 210 219 (150-375) k/mm3 BMP 12/24/24 12/25/24 15:43 08:28 Sodium 136 L 137 Potassium 4.0 3.4 Chloride 95 L 98 Carbon Dioxide 32 H 33 H BUN 34 H 29 H Creatinine 1.38 H 1.20 Glucose 177 H 109 Calcium 8.8 8.8 Cardiac Enzymes 12/24/24 Range/Units 15:43 Troponin I < 0.012 (0.000-0.034) ng/mL Liver Function 12/24/24 Range/Units 15:43 Total Bilirubin 0.7 (0.2-1.3) mg/dL AST 21 (17-59) U/L ALT 39 (6-50) U/L Alkaline Phosphatase 80 (38-126) U/L Albumin 4.0 (3.5-5.1) g/dL
--- NOTE | 2024-12-25 15:28 | PM.IMPN ---
Progress Note: A&P Assessment and Plan (1) Acute CVA (cerebrovascular accident): Code(s): I63.9 - Cerebral infarction, unspecified Status: Acute Assessment and Plan: Patient presents with left sided numbness. head CT showing old infarcts but no acute findings. Carotid US showing <50% stenosis bilateral internal carotid arteries. Brain MRI showing an 8mm ovoid acute infarct right thalamus. Consider related to pAFib. Continue ASA and Lipitor. Contineu Eliquis. Advance Lipitor dose. Start PT, OT and speech therapy. Neurology consulted and appreciate their input Check echocardiogram with bubble called back to the room for patient with slurred speech. His numbness actually better but feels run down. BP has become soft possibly related to his BP medications given all at once. Could be related to benadryl Repeat neuro exam without change. Speech is thick but clear. Will start IV fluids. Place parameters on his anti-HTN. (2) Paroxysmal atrial fibrillation: Code(s): I48.0 - Paroxysmal atrial fibrillation Status: Acute Assessment and Plan: Patient with paroxysmal atrial fibrillation. EKG on admission shows sinus bradycardia, LVH with ST T wave changes. Continue metoprolol. Continue Eliquis. Continue to monitor on telemetry. (3) Chronic respiratory failure with hypoxia: Code(s): J96.11 - Chronic respiratory failure with hypoxia Status: Acute Assessment and Plan: Patient with chronic respiratory failure requiring 2 L during the day and 4 L at night bleed in for his BiPAP. Chest x-ray shows mild atelectasis at the left lung base. Follow clinically. (4) PARDEEP (obstructive sleep apnea): Code(s): G47.33 - Obstructive sleep apnea (adult) (pediatric) Status: Acute Assessment and Plan: Patient with obstructive sleep apnea. Continue BiPAP as tolerated. Plan Mild JEET - Cr 1.4 on admission and Lasix held. Cr better today. Follow. 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 Patient had hives after [facility] about 40 years ago and gets benadryl before any procedure involving contrast even MRI. About 3 weeks ago, he developed rash after cryotherapy to the right kidney treated with oral prednisone with a slow taper. No hx of respiratory sx or tongue swelling. His numbness has resolved to the left leg. Some mild left facial and left tip of thump persistent numbness. Exam Narrative: AF 96.7 93/52 53 16 93% 2L Gen - NARD Chest - CTA bilaterally CV - regularly irregular. Tele showing sinus arrhythmias Abd - softNT/ND, +BS Ext - no pedal edema Neuro - left heel-agustin mildly dysmetric. rapid finger tapping poor L>R. 4+/5 left sided weakness. speech clear Skin - warm and dry Objective Data Vital Signs Vital Signs: Vital Signs - 24 hr 12/24/24 16:22 12/24/24 16:50 12/24/24 18:12 Temperature Pulse Rate 55 L 56 L 56 L Respiratory Rate 17 18 17 Blood Pressure 205/75 H 167/97 H 146/70 H Pulse Oximetry 98 96 97 Oxygen Delivery Oxygen Flow Rate 2 12/24/24 18:18 12/24/24 19:13 12/24/24 19:14 Temperature 98.1 F Pulse Rate 56 L 57 L 59 L Respiratory Rate 17 17 Blood Pressure 153/82 H 186/80 H Pulse Oximetry 97 98 Oxygen Delivery Oxygen Flow Rate 12/24/24 19:18 12/24/24 20:56 12/24/24 21:42 Temperature 98.1 F Pulse Rate 57 L 56 L Respiratory Rate 24 H 25 H Blood Pressure 186/67 H 161/72 H Pulse Oximetry 99 98 98 Oxygen Delivery Nasal Cannula Oxygen Flow Rate 3 12/24/24 23:30 12/25/24 00:00 12/25/24 02:55 Temperature 97.0 F L Pulse Rate 53 L 54 L Respiratory Rate 20 Blood Pressure 104/89 Pulse Oximetry 95 99 Oxygen Delivery CPAP Oxygen Flow Rate 12/25/24 04:00 12/25/24 06:00 12/25/24 10:00 Temperature 97.0 F L Pulse Rate 48 L 50 L Respiratory Rate 20 Blood Pressure 187/61 H Pulse Oximetry 100 96 Oxygen Delivery Nasal Cannula Oxygen Flow Rate 2 12/25/24 10:05 12/25/24 13:26 12/25/24 13:30 Temperature 98.2 F Pulse Rate 71 85 85 Respiratory Rate Blood Pressure 99/56 L 99/56 L Pulse Oximetry 97 97 Oxygen Delivery Oxygen Flow Rate 12/25/24 14:00 Temperature 96.7 F L Pulse Rate 53 L Respiratory Rate 16 Blood Pressure 93/52 L Pulse Oximetry 93 Oxygen Delivery Oxygen Flow Rate Intake/Output Intake/Output: Intake & Output 12/22/24 12/23/24 12/24/24 12/25/24 23:59 23:59 23:59 23:59 Intake Total 780 Balance 780 Meds/Results Medications: Active Medications Generic Name Dose Route Start Last Admin Trade Name Freq PRN Reason Stop Dose Admin Acetaminophen 650 mg 12/24/24 19:04 Acetaminophen 325 Mg Tablet PO Q4H PRN Mild Pain (1-3) or Fever Apixaban 5 mg 12/25/24 09:00 12/25/24 10:05 Apixaban 5 Mg Tablet PO 5 mg Q12HR LAITH Administration Aspirin 81 mg 12/25/24 09:00 12/25/24 10:04 Aspirin 81 Mg Enteric Tablet PO 81 mg QAM LAITH Administration Atorvastatin Calcium 10 mg 12/25/24 09:00 12/25/24 10:04 Atorvastatin 10 Mg Tablet PO 10 mg DAILY LAITH Administration Isosorbide Mononitrate 30 mg 12/25/24 09:00 12/25/24 10:05 Isosorbide Mononitrate 30 Mg Tab.Er.24h PO 30 mg DAILY LAITH Administration Levothyroxine Sodium 50 mcg 12/25/24 06:30 12/25/24 06:14 Levothyroxine Sodium 50 Mcg Tablet PO 50 mcg DAILY@0630 LAITH Administration Metoprolol Succinate 50 mg 12/25/24 09:00 12/25/24 10:05 Metoprolol Succinate Ext Rel 50 Mg Tabcr PO 50 mg DAILY LAITH Administration Multivitamins/Calcium 1 tablet 12/25/24 09:00 12/25/24 10:05 Therapeutic Multivitamins/Minerals Tab (*Bkc) PO 1 tablet DAILY LAITH Administration Ondansetron HCl 4 mg 12/24/24 19:04 Ondansetron Inj 4 Mg/2 Ml Vial IV PUSH Q4H PRN Nausea Pantoprazole Sodium 40 mg 12/25/24 09:00 12/25/24 10:06 Pantoprazole 40 Mg Tablet PO 40 mg BID LAITH Administration Terazosin HCl 5 mg 12/25/24 09:00 12/25/24 10:08 Terazosin Hcl 5 Mg Capsule PO 5 mg DAILY LAITH Administration Radiology Results: ITS Impressions Chest X-Ray 12/24/24 15:52 IMPRESSION: 1. Mild atelectasis at left lung base. Head CT 12/24/24 16:00 IMPRESSION: 1. Old infarcts in the brain. 2. Moderate nonspecific cerebral white matter disease, which likely represents chronic small vessel ischemic disease. Carotid Doppler Study 12/24/24 20:26 IMPRESSION: 1. Less than 50% stenosis in the right internal carotid artery. 2. Less than 50% stenosis in the left internal carotid artery. Brain MRI 12/25/24 12:34 IMPRESSION: 8 mm ovoid acute infarct in the right thalamus. No intracranial hemorrhage. Extensive chronic microvascular ischemic change with probable focal old left parietal lobe infarct. Labs Labs: Laboratory Results - last 24 hr 12/24/24 12/25/24 15:43 08:28 WBC 9.9 11.0 H RBC 4.10 L 4.07 L Hgb 12.0 L 12.1 L Hct 37.3 L 36.8 L MCV 91.0 90.4 MCH 29.3 29.7 MCHC 32.2 32.9 RDW 13.9 14.0 Plt Count 210 219 MPV 11.4 H 11.8 H Immature Gran % (Auto) 2.8 H Neut % (Auto) 81.2 H Lymph % (Auto) 10.6 L [place] % (Auto) 4.6 Eos % (Auto) 0.4 Baso % (Auto) 0.4 Lymph # (Auto) 1.05 [place] # (Auto) 0.5 Eos # (Auto) 0.0 Baso # (Auto) 0.0 Abs Immat Gran (auto) 0.28 H Absolute Neuts (auto) 8.0 H Absolute Nucleated RBC 0.000 Nucleated RBC % 0.0 PT 14.5 INR 1.1 APTT 26.4 Sodium 136 L 137 Potassium 4.0 3.4 Chloride 95 L 98 Carbon Dioxide 32 H 33 H Anion Gap 9 6 BUN 34 H 29 H Creatinine 1.38 H 1.20 Estim Creat Clear Calc 41 46 Estimated GFR 49 L 58 L Glucose 177 H 109 Calcium 8.8 8.8 Total Bilirubin 0.7 AST 21 ALT 39 Alkaline Phosphatase 80 Troponin I < 0.012 Total Protein 7.0 Albumin 4.0
[2024-12-25] MEDS: SODIUM CHLORIDE 0.9% IV 1,000 ML 100 ML IV CONT (17:53)
[2024-12-26] VITALS (9 sets, daily range): BP systolic 145–175; BP diastolic 65–68; PULSE 47–81; RESP 20; TEMP 36.2–36.4; O2SAT 96–99
--- NOTE | 2024-12-26 | ECHO_ITS ---
Patient Info Name: Manolo Agrawal Age: 84 years : 1940 Gender: Male Ht: 69 in Wt: 207 lbs BSA: 2.16 m2 HR: 58 bpm BP: 137 / 60 mmHg Heart Rhythm: Sinus Arrhythmia Technical Quality: Fair Exam Date: 12/26/2024 9:51 AM Exam Location: Echo Lab Patient Status: Inpatient Admit Date: 12/25/2024 Staff Ordering Physician: Onel Albert MD Assistant Credit Manager: Olivia Gagnon RDCS Attending Provider: Onel Albert MD Exam Type: CA echo doppler w bubble study Study Info Indications - CVA Complete two-dimensional, color flow and Doppler transthoracic echocardiogram is performed with agitated saline. Contrast/Agitated Saline Contrast/Ag. Saline: Agitated Saline Amount: 16.00 ml IV Access Condition: patent with no signs of infiltration Summary 1. Left ventricular chamber dimension is normal. 2. Left ventricular systolic function is normal, estimated at 60-65%. 3. There is mildly increased left ventricular wall thickness. 4. The left ventricular diastolic function is grade I diastolic dysfunction. 5. Right ventricular systolic function is normal. 6. Left atrial chamber dimension is moderately enlarged. 7. Intact interatrial septum visualized by color flow and agitated saline imaging. Negative bubble study. 8. There is mild mitral valve regurgitation. 9. There is mild tricuspid valve regurgitation. Left Ventricle Left ventricular chamber dimension is normal. Left ventricular systolic function is normal, estimated at 60-65%. There is mildly increased left ventricular wall thickness. The left ventricular diastolic function is grade I diastolic dysfunction. Right Ventricle Right ventricular chamber dimension is normal. Right ventricular systolic function is normal. Left Atria Left atrial chamber dimension is moderately enlarged. Right Atria Right atrial chamber dimension is normal. Atrial Septum Intact interatrial septum visualized by color flow and agitated saline imaging. Negative bubble study. Aortic Valve The aortic valve is probable trileaflet. There is no aortic valve stenosis. There is no aortic valve regurgitation. Pulmonic Valve The pulmonic valve is not well visualized. Mitral Valve There is mild mitral valve regurgitation. Tricuspid Valve There is mild tricuspid valve regurgitation. Pericardium/Pleural There is no pericardial effusion. Inferior Vena Cava Inferior vena cava is not well visualized. Aorta The aortic root size at the sinus of Valsalva is normal. Left Ventricular Outflow Tract Name Value Normal LVOT 2D LVOT Diameter 2.1 cm LVOT Doppler LVOT Peak Gradient 2 mmHg LVOT Mean Gradient 1 mmHg LVOT VTI 27 cm LVOT VTI/AV VTI Ratio 0.9 LVOT Stroke Volume 91 ml LVOT CO 2.6 l/min LVOT CI 1.2 l/min/m2 Pulmonic Valve Name Value Normal PV Doppler PV Peak Gradient 4 mmHg Mitral Valve Name Value Normal MV Doppler MV Decel Clark 121 cm/s2 MV PHT 91 ms MV Area (PHT) 2.4 cm2 4.0-5.0 MV Diastolic Function MV E Peak Velocity 4 cm/s MV A Peak Velocity 4 cm/s MV E/A 1.0 MV Decel Time 315 ms MV Annular TDI MV E/e' (Septal) 9.4 <=8.0 MV E/e' (Lateral) 5.2 <=8.0 MV E/e' (Average) 7.3 Tricuspid Valve Name Value Normal TV Regurgitation Doppler TR Peak Velocity 220 cm/s TR Peak Gradient 16 mmHg Aortic Valve Name Value Normal AV Doppler AV Peak Velocity 134 cm/s AV Peak Gradient 3 mmHg AV Mean Gradient 2 mmHg AV VTI 32 cm AV Area (Cont Eq VTI) 2.8 cm2 >=3.0 AV Area (Cont Eq Rob) 2.5 cm2 AV Regurgitation 2D LVOT Area 3.3 cm2 Ventricles Name Value Normal LV Dimensions 2D/MM IVS Diastolic Thickness (2D) 1.1 cm 0.6-1.0 LVID Diastole (2D) 4.6 cm 4.2-5.8 LVIW Diastolic Thickness (2D) 1.4 cm 0.6-1.0 LVID Systole (2D) 3.3 cm 2.5-4.0 LVOT Diameter 2.1 cm LV Mass (2D Cubed) 221.44 g 88.00-224.00 LV Mass Index (2D Cubed) 102 g/m2 49-115 Relative Wall Thickness (2D) 0.59 LV Fractional Shortening/Ejection Fraction 2D/MM LV Fractional Shortening (2D) 29 % 25-43 LV EF (2D Teicholz) 56 % 52-72 LV Diastolic Volume (4C MOD) 94 ml LV EF (4C MOD) 62 % LV Diastolic Volume (2C MOD) 114 ml LV EF (2C MOD) 63 % LV Diastolic Volume (BP MOD) 107 ml 62-150 LV Diastolic Volume Index (BP MOD) 49 ml/m2 34-74 LV Systolic Volume (BP MOD) 42 ml 21-61 LV Systolic Volume Index (BP MOD) 19 ml/m2 11-31 LV EF (BP MOD) 61 % 52-72 LV Diastolic Length (4C) 8.1 cm LV Systolic Length (4C) 6.6 cm LV Stroke Volume (4C MOD) 59 ml Atria Name Value Normal LA Dimensions LA Volume (4C A-L) 91 ml LA Volume (BP A-L) 97 ml Report Signatures
[2024-12-26 05:44] LABS: Albumin Level 3.2 g/dL (3.5-5.1); Anion Gap 7 mmol/L (4-12); Blood Urea Nitrogen 28 mg/dL (9-20); Calcium 8.1 mg/dL (8.4-10.2); Carbon Dioxide 28 mmol/L (22-30); Chloride 102 mmol/L (98-107); Estimated CRCL calculation 46 ml/min; Estimated Glomerular Filt Rate 57; Glucose 105 mg/dL (65-110); Phosphorus 4.1 mg/dL (2.5-4.5); Potassium 3.7 mmol/L (3.4-5.0); Sodium 137 mmol/L (137-145)
[2024-12-26] MEDS: LEVOTHYROXINE SODIUM 50 MCG TABLET PO (06:26)
[2024-12-26 06:55] LABS: Folic Acid > 20.0 ng/mL (2.76->20)
[2024-12-26 07:28] LABS: Free T4 Free Thyroxine Reflex 1.37 ng/dL (0.78-2.19)
--- NOTE | 2024-12-26 08:02 | PCSTNOTE ---
Please refer to the Bedside Swallow Evaluation in the EMR. Please note, silent aspiration cannot be ruled out at bedside. The above pleasant and cooperative pt admitted with a dx of CVA was seen for a swallow evaluation at bedside. The pt was positioned upright in the bed for testing. He was alert & oriented and able to follow commands. He is currently on a regular diet and denies dysphagia. Oral mucosa is normal; natural dentition is in good condition; Oral peripheral exam revealed lingual and labial structures to be normal. He was able to dry swallow on command and exhibited clear vocal quality. Speech intelligibility 100% clear. He was tested with pudding, cracker and thin liquids in controlled and uncontrolled amounts. The oral stages appeared WNL. No oral residue, leakage, or pocketing was noted. During the pharyngeal stage, swallow reflex appeared prompt & laryngeal elevation adequate. No overt s/s of aspiration were exhibited; however, silent aspiration cannot be ruled at bedside. General impression is normal swallow ability. Recommendation: Continue current diet. Thank you for this referral.
[2024-12-26 08:21] LABS: Total Triiodothyronine (T3) 0.92 NG/ML (0.97-1.69)
[2024-12-26] MEDS: PANTOPRAZOLE 40 MG TABLET PO (08:23)
[2024-12-26] MEDS: ASPIRIN 81 MG ENTERIC TABLET PO (08:23)
[2024-12-26] MEDS: APIXABAN 5 MG TABLET PO (08:23)
[2024-12-26] MEDS: METOPROLOL SUCCINATE EXT REL 50 MG TABCR PO (08:23)
[2024-12-26] MEDS: TERAZOSIN HCL 5 MG CAPSULE PO (08:23)
[2024-12-26] MEDS: THERAPEUTIC MULTIVITAMINS/MINERALS TAB (*BKC) 1 TABLET PO (08:23)
[2024-12-26] MEDS: ATORVASTATIN 40 MG TABLET PO (08:23)
[2024-12-26] MEDS: ISOSORBIDE MONONITRATE 30 MG TAB.ER.24H PO (08:24)
--- NOTE | 2024-12-26 09:59 | PM.IMPN ---
Progress Note: A&P Assessment and Plan (1) Acute CVA (cerebrovascular accident): Code(s): I63.9 - Cerebral infarction, unspecified Status: Acute Plan (1) Acute CVA (cerebrovascular accident): Code(s): I63.9 - Cerebral infarction, unspecified Status: Acute Assessment and Plan: Patient presents with left sided numbness. head CT showing old infarcts but no acute findings. Carotid US showing <50% stenosis bilateral internal carotid arteries. Brain MRI showing an 8mm ovoid acute infarct right thalamus. Consider related to pAFib. Continue ASA and Lipitor. Contineu Eliquis. Advance Lipitor dose. Start PT, OT and speech therapy. Neurology consulted and appreciate their input Pending echocardiogram with bubble BP came soft on IV fluids. Blood pressure elevated Discontinue IV fluid today Paroxysmal atrial fibrillation: Code(s): I48.0 - Paroxysmal atrial fibrillation Status: Acute Assessment and Plan: Patient with paroxysmal atrial fibrillation. EKG on admission shows sinus bradycardia, LVH with ST T wave changes. Continue metoprolol. Continue Eliquis. Continue to monitor on telemetry. Chronic respiratory failure with hypoxia: Code(s): J96.11 - Chronic respiratory failure with hypoxia Status: Acute Assessment and Plan: Patient with chronic respiratory failure requiring 2 L during the day and 4 L at night bleed in for his BiPAP. Chest x-ray shows mild atelectasis at the left lung base. Follow clinically. PARDEEP (obstructive sleep apnea): Code(s): G47.33 - Obstructive sleep apnea (adult) (pediatric) Status: Acute Assessment and Plan: Patient with obstructive sleep apnea. Continue BiPAP as tolerated. JEET - Cr 1.4 on admission and Lasix held. receiving 1L IV fluids for soft blood pressure Creatinine is trending down stable DVT prophylaxis - Eliquis Code status - Full Subjective Date/time seen: 12/26/24 09:59 Interval history: I saw exam patient in presents of patient's . Patient feels comfortable, denies difficulty with speaking, vision change, focal weakness, abnormal sensation. Also denies chest pain palpitation Patient is afebrile blood pressure stable Exam Narrative: AF 96.7 93/52 53 16 93% 2L Gen - NARD Chest - CTA bilaterally CV - regularly irregular. Tele showing sinus arrhythmias Abd - softNT/ND, +BS Ext - no pedal edema Neuro - left heel-agustin mildly dysmetric. rapid finger tapping poor L>R. 4+/5 left sided weakness. speech clear Skin - warm and dry Objective Data Vital Signs Vital Signs: Vital Signs - 24 hr 12/25/24 10:00 12/25/24 10:05 12/25/24 13:26 Temperature 98.2 F Pulse Rate 71 85 Respiratory Rate Blood Pressure 99/56 L Pulse Oximetry 96 97 Oxygen Delivery Nasal Cannula Oxygen Flow Rate 2 12/25/24 13:30 12/25/24 14:00 12/25/24 16:00 Temperature 96.7 F L Pulse Rate 85 53 L 60 Respiratory Rate 16 Blood Pressure 99/56 L 93/52 L Pulse Oximetry 97 93 Oxygen Delivery Oxygen Flow Rate 12/25/24 20:00 12/25/24 20:00 12/25/24 22:00 Temperature 97.5 F L Pulse Rate 54 L 54 L Respiratory Rate 20 Blood Pressure 137/58 L Pulse Oximetry 95 98 Oxygen Delivery Nasal Cannula Oxygen Flow Rate 2 12/25/24 23:11 12/26/24 00:00 12/26/24 01:39 Temperature Pulse Rate 51 L 55 L 47 L Respiratory Rate 17 20 Blood Pressure Pulse Oximetry 99 96 Oxygen Delivery CPAP CPAP Oxygen Flow Rate 12/26/24 04:00 12/26/24 06:00 12/26/24 08:23 Temperature 97.2 F L Pulse Rate 51 L 50 L 78 Respiratory Rate 20 Blood Pressure 175/65 H Pulse Oximetry 99 Oxygen Delivery Oxygen Flow Rate Intake/Output Intake/Output: Intake & Output 12/23/24 12/24/24 12/25/24 12/26/24 23:59 23:59 23:59 23:59 Intake Total 1260 960 Balance 1260 960 Meds/Results Medications: Active Medications Generic Name Dose Route Start Last Admin Trade Name Freq PRN Reason Stop Dose Admin Acetaminophen 650 mg 12/24/24 19:04 Acetaminophen 325 Mg Tablet PO Q4H PRN Mild Pain (1-3) or Fever Apixaban 5 mg 12/25/24 09:00 12/26/24 08:23 Apixaban 5 Mg Tablet PO 5 mg Q12HR LAITH Administration Aspirin 81 mg 12/25/24 09:00 12/26/24 08:23 Aspirin 81 Mg Enteric Tablet PO 81 mg QAM LAITH Administration Atorvastatin Calcium 40 mg 12/26/24 09:00 12/26/24 08:23 Atorvastatin 40 Mg Tablet PO 40 mg DAILY LAITH Administration Isosorbide Mononitrate 30 mg 12/25/24 09:00 12/26/24 08:24 Isosorbide Mononitrate 30 Mg Tab.Er.24h PO 30 mg DAILY LAITH Administration Levothyroxine Sodium 50 mcg 12/25/24 06:30 12/26/24 06:26 Levothyroxine Sodium 50 Mcg Tablet PO 50 mcg DAILY@0630 LAITH Administration Metoprolol Succinate 50 mg 12/25/24 09:00 12/26/24 08:23 Metoprolol Succinate Ext Rel 50 Mg Tabcr PO 50 mg DAILY LAITH Administration Multivitamins/Calcium 1 tablet 12/25/24 09:00 12/26/24 08:23 Therapeutic Multivitamins/Minerals Tab (*Bkc) PO 1 tablet DAILY LAITH Administration Ondansetron HCl 4 mg 12/24/24 19:04 Ondansetron Inj 4 Mg/2 Ml Vial IV PUSH Q4H PRN Nausea Pantoprazole Sodium 40 mg 12/25/24 09:00 12/26/24 08:23 Pantoprazole 40 Mg Tablet PO 40 mg BID LAITH Administration Perflutren Lipid Microsphere 0 ml 12/25/24 15:25 Perflutren Lipid Microspheres 1.5 Ml Vial Diluted To 10 Ml Total Volume IV PUSH 12/28/24 15:29 ONCE PRN adequate visualization Protocol Perflutren Lipid Microsphere 0 ml 12/25/24 18:02 Perflutren Lipid Microspheres 1.5 Ml Vial Diluted To 10 Ml Total Volume IV PUSH 12/28/24 18:03 ONCE PRN adequate visualization Protocol Terazosin HCl 5 mg 12/25/24 09:00 12/26/24 08:23 Terazosin Hcl 5 Mg Capsule PO 5 mg DAILY LAITH Administration Radiology Results: ITS Impressions Chest X-Ray 12/24/24 15:52 IMPRESSION: 1. Mild atelectasis at left lung base. Head CT 12/24/24 16:00 IMPRESSION: 1. Old infarcts in the brain. 2. Moderate nonspecific cerebral white matter disease, which likely represents chronic small vessel ischemic disease. Carotid Doppler Study 12/24/24 20:26 IMPRESSION: 1. Less than 50% stenosis in the right internal carotid artery. 2. Less than 50% stenosis in the left internal carotid artery. Brain MRI 12/25/24 12:34 IMPRESSION: 8 mm ovoid acute infarct in the right thalamus. No intracranial hemorrhage. Extensive chronic microvascular ischemic change with probable focal old left parietal lobe infarct. Labs Labs: Laboratory Results - last 24 hr 12/26/24 05:26 Sodium 137 Potassium 3.7 Chloride 102 Carbon Dioxide 28 Anion Gap 7 BUN 28 H Creatinine 1.22 Estim Creat Clear Calc 46 Estimated GFR 57 L Glucose 105 Calcium 8.1 L Phosphorus 4.1 Albumin 3.2 L Vitamin B12 763.0 Folate > 20.0 H TSH (Reflex) 5.950 H Free T4 1.37 Total T3 0.92 L
--- NOTE | 2024-12-26 10:31 | PM.DS ---
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 The patient reportedly last felt normal was right before midnight on the . He woke up at 07:30 on the and noticed that his left leg was cramping and tingling the tingling and cramping then proceeded to climb up is body into his left arm shoulder and face, he felt that his face was not quite right. He reports that he has been having a lot of of muscle cramping ever since he had his cryoablation 2 weeks ago. However this time he he has had the sensation of tingling and paresthesias. He reports that all of his paresthesias and muscle symptoms have now resolved except for his thumb on his left hand feels numb. He has good regional psychiatric director strength with no evidence of dysmetria. He feels as if he was dragging his leg on the left side. He is not sure if this is due to cramping or something else. He has not had any lower extremity weakness. He denies any headaches or visual changes. He denies known history of prior strokes but is CT of the brain did demonstrate old infarcts in the right and left frontal lobe and left parietal lobe. His EKG demonstrated sinus bradycardia. His labs were unremarkable except for some increase in creatinine but last known baseline of patient's creatinine was almost a year ago. He denies any dysuria urinary frequency. He denies sensation of incomplete bladder emptying. He reports that he has been on a Medrol Dosepak and has 4 days left of the Dosepak. He was on the Dosepak when he developed a rash a few days after his cryoablation. It was presumed that the rash may have been due to the 1 dose of Cipro he received preoperatively. However he thinks that the rash may have been due to some macadamia nuts that he ate just prior to the development of the rash. The rash had dissipated several days ago. He reports that his appetite has been extreme since he has been on steroids. The following med issues have been addressed during hospitalization Acute CVA (cerebrovascular accident): Code(s): I63.9 - Cerebral infarction, unspecified Status: Acute Assessment and Plan: Patient presents with left sided numbness. head CT showing old infarcts but no acute findings. Carotid US showing <50% stenosis bilateral internal carotid arteries. Brain MRI showing an 8mm ovoid acute infarct right thalamus. Consider related to pAFib. Continue ASA and Lipitor. Contineu Eliquis. Advance Lipitor dose. Start PT, OT and speech therapy. Neurology consulted and appreciate their input echocardiogram with bubble 1. Left ventricular chamber dimension is normal. 2. Left ventricular systolic function is normal, estimated at 60-65%. 3. There is mildly increased left ventricular wall thickness. 4. The left ventricular diastolic function is grade I diastolic dysfunction. 5. Right ventricular systolic function is normal. 6. Left atrial chamber dimension is moderately enlarged. 7. Intact interatrial septum visualized by color flow and agitated saline imaging. Negative bubble study. 8. There is mild mitral valve regurgitation. 9. There is mild tricuspid valve regurgitation. Dr. Welch agreed to discharge pt and continue aspirin 81 mg daily p.o., Eliquis 5 mg b.i.d. p.o. BP came soft on IV fluids. Blood pressure elevated Discontinue IV fluid today Paroxysmal atrial fibrillation: Code(s): I48.0 - Paroxysmal atrial fibrillation Status: Acute Assessment and Plan: Patient with paroxysmal atrial fibrillation. EKG on admission shows sinus bradycardia, LVH with ST T wave changes. Continue metoprolol. Continue Eliquis. Chronic respiratory failure with hypoxia: Code(s): J96.11 - Chronic respiratory failure with hypoxia Status: Acute Assessment and Plan: Patient with chronic respiratory failure requiring 2 L during the day and 4 L at night bleed in for his BiPAP. Chest x-ray shows mild atelectasis at the left lung base. Follow clinically. PARDEEP (obstructive sleep apnea): Code(s): G47.33 - Obstructive sleep apnea (adult) (pediatric) Status: Acute Assessment and Plan: Patient with obstructive sleep apnea. Continue BiPAP as tolerated. JEET - Cr 1.4 on admission and Lasix held. receiving 1L IV fluids for soft blood pressure Creatinine is trending down stable Cr. 1.22 Time Spent with Patient Time attestation: Total time spent providing and/or coordinating discharge services: Exam Narrative: GENERAL: Pleasant, in no acute distress. Well-nourished. - EYES: EOMI. Anicteric. - HENT: Moist mucous membranes. - LUNGS: Clear to auscultation bilaterally, no wheezing, rhonchi, or rales. - CARDIOVASCULAR: Regular rate and rhythm. No murmur. No JVD. - ABDOMEN: Soft, non-tender and non-distended. No palpable masses. - EXTREMITIES: No edema. Peripheral pulses 2+. Non-tender. - NEUROLOGIC: No focal neurological deficits. CN II-XII grossly intact. - PSYCHIATRIC: Awake, Alert and oriented x 3. Appropriate mood and affect. - SKIN: No rashes or lesions. Warm. - LYMPH: No cervical lymphadenopathy. DS: Data Data Completed and Pending Labs on day of discharge: Labs from last 24 hours 12/26/24 05:26 Sodium 137 Potassium 3.7 Chloride 102 Carbon Dioxide 28 Anion Gap 7 BUN 28 H Creatinine 1.22 Estim Creat Clear Calc 46 Estimated GFR 57 L Glucose 105 Calcium 8.1 L Phosphorus 4.1 Albumin 3.2 L Vitamin B12 763.0 Folate > 20.0 H TSH (Reflex) 5.950 H Free T4 1.37 Total T3 0.92 L Discharge Plan Discharge Attending physician on discharge: Jeanne Patiño Consulting providers: Zackary Morin Discharging Clinician: Jeanne Patiño Patient Disposition: Home, Self-Care Activity: as tolerated Diet: as tolerated Patient Instructions: Antibiotic Form, Apixaban (By mouth), Heart Failure (DC), Safe Use of Anticoagulants (DC) Patient Language: Citizen Of [place] Stand Alone Forms: General Discharge Information Follow-up/Referrals: Gray Lewis MD [Primary Care Provider] - ( patient needs to see primary care doctor in 1 week) Discharge Medications: Continued glucosamine sulfate [Glucosamine] 500 mg tablet 1,500 mg PO DAILY Rx Instructions: administer with a meal multivitamin with iron Tablet 1 tablet PO DAILY isosorbide mononitrate 30 mg tablet extended release 24 hr 30 mg PO DAILY metoprolol succinate 50 mg tablet extended release 24 hr 50 mg PO DAILY prednisone 10 mg tablet See Rx Instructions PO DIRECTED Qty: 30 0RF Patient Comments: STARTED 12/17, NOW 2 Tabs FOR , THEN 1 TAB FOR Rx Instructions: Take 4 daily (40 mg) for 3 days, 3 daily (30 mg) for 3 days, 2 (20 mg) daily for 3 days, then 1 daily (20 mg) for 3 days orally as directed. furosemide 40 mg tablet 40 mg PO BID apixaban 5 mg tablet 5 mg PO BID Qty: 60 0RF aspirin 81 mg capsule 81 mg PO DAILY Qty: 60 0RF terazosin 5 mg capsule See Rx Instructions .ROUTE .COMPLEX Qty: 90 0RF Dose Instruction: TAKE 1 CAPSULE EVERY DAY Rx Instructions: TAKE 1 CAPSULE EVERY DAY atorvastatin 10 mg tablet See Rx Instructions .ROUTE .COMPLEX Qty: 90 0RF Dose Instruction: TAKE 1 TABLET EVERY DAY Rx Instructions: TAKE 1 TABLET EVERY DAY omeprazole 40 mg capsule,delayed release(DR/EC) See Rx Instructions .ROUTE .COMPLEX Qty: 90 0RF Dose Instruction: TAKE 1 CAPSULE EVERY DAY Rx Instructions: TAKE 1 CAPSULE EVERY DAY levothyroxine 50 mcg tablet See Rx Instructions .ROUTE .COMPLEX Qty: 90 0RF Dose Instruction: TAKE 1 TABLET EVERY DAY Rx Instructions: TAKE 1 TABLET EVERY DAY probenecid 500 mg tablet See Rx Instructions .ROUTE .COMPLEX Qty: 90 3RF Dose Instruction: TAKE 1 TABLET EVERY DAY Rx Instructions: TAKE 1 TABLET EVERY DAY Other Ambulatory Orders: PT Outpatient Eval and Treat (ONCE) Timeframe: [id number] Location: Determined by Patient Ordered By: Jeanne Patiño Date of admission: 12/25/24 07:12 Primary Care Provider: Gray Lewis Admitting Provider: Onel Albert Attending physician on admission: Onel Albert Condition: Stable
== END 2024-12-26 15:55 | disposition home or self-care (01) | DRG 65 ==
LOC: ANHED 20:50 → ANH3MED 21:18
PROVIDERS: Internal Medicine; Admitting Provider Internal Medicine; Emergency Provider Emergency Medicine; PCP Family Medicine Adolescent Medicine; Visit Provider Hospitalist
DX: I63.9 Cerebral infarction, unspecified (principal); I13.0 Hypertensive heart and chronic kidney disease with heart failure and stage 1 through stage 4 chronic kidney disease, or unspecified chronic kidney disease; I50.32 Chronic diastolic (congestive) heart failure; J96.11 Chronic respiratory failure with hypoxia; N17.9 Acute kidney failure, unspecified; R20.0 Anesthesia of skin; R29.703 NIHSS score 3; N18.31 Chronic kidney disease, stage 3a; I48.0 Paroxysmal atrial fibrillation; E03.9 Hypothyroidism, unspecified; G47.33 Obstructive sleep apnea (adult) (pediatric); K21.9 Gastro-esophageal reflux disease without esophagitis; E78.00 Pure hypercholesterolemia, unspecified; Z96.651 Presence of right artificial knee joint; Z85.528 Personal history of other malignant neoplasm of kidney; Z90.49 Acquired absence of other specified parts of digestive tract; Z95.5 Presence of coronary angioplasty implant and graft; Z95.1 Presence of aortocoronary bypass graft
CPT/HCPCS: 36415; 70450; 70553; 71046; 80048; 80053; 80069; 82607; 82746; 82948; 84439; 84443; 84480; 84484; 85025; 85027; 85610; 85730; 92610; 93005; 93306; 93880; 96374; 96375; 97161; 97165; 99285; A9270; A9579; G0378; J7030

== ENCOUNTER 2025-02-12 13:30 | Outpatient (RCR) | payer MEDICARE, SELFPAY ==
[2024-12-30 00:02] VITALS: PULSE 57
== END 2025-03-19 10:53 | disposition home or self-care (01) ==
LOC: ANHCPREHAB 13:30
PROVIDERS: Visit Provider Internal Medicine Pulmonary Disease
DX: J96.10 Chronic respiratory failure, unspecified whether with hypoxia or hypercapnia (principal)
CPT/HCPCS: G0239

== ENCOUNTER 2025-03-01 12:28 | Outpatient (CLI) | payer MEDICARE, SELFPAY ==
--- OUTSIDE RECORDS SUMMARY | 2025-03-01 12:32 | XMS_ITS | Clinical Summary ---
Author Organization [facility] D Address [address] [place] [address] Care Team Providers Care Fuel Distribution System Operator Name Role Phone Gray Lewis MD Primary Care Prov ider Yoel Siu MD Unavailable [phone] Allergies Active Allergy Reactions Criticality Noted Date [...] mg total) by mouth every morning Active glucosamine-ch ondroitin (glucosamine-c hondroitin) 500-400 mg capsule Take 1 capsule by mouth 2 (two) times a day Active furosemide (LASIX) 40 mg tablet Take 1 tablet (40 mg total) by mouth 2 (two) times a day 021 Active levothyroxine (SYNTHROID) 50 mcg tablet Take 1 tablet (50 mcg total) by mouth grain unloader machine before breakfast 08/03/2 021 Active atorvastatin (LIPITOR) 10 mg tablet Take 1 tablet (10 mg total) by mouth nightly 022 Active terazosin (HYTRIN) 5 mg capsule Take 1 capsule (5 mg total) by mouth nightly Active omeprazole (PriLOSEC) 40 mg capsule Take 1 capsule (40 mg total) by mouth nightly 023 Active apixaban (Eliquis) 5 mg tablet Take 1 tablet (5 mg total) by mouth 2 (two) times a day 180 tablet 3 025 Active isosorbide mononitrate ER (IMDUR) 30 mg 24 hr tablet Take 1 tablet (30 mg total) by mouth every morning Active predniSONE (DELTASONE) 10 mg tablet Medrol Dose Pack 025 Active metoprolol XL (TOPROL-XL) 50 mg extended release tablet TAKE 1 TABLET EVERY DAY 90 tablet 025 Active predniSONE (DELTASONE) 50 mg tabletIndicati ons:hypersensi tivity drug reaction,contr ast allergy Prednisone (Deltasone) tablet: 50mg oral every 6 hours for 3 doses Give doses 13 hours, 7 hours, and 1 hour Diphenhydramine (Benadryl) tablet 50mg oral once or capsuleprior to procedure with contrast dye Admister dose 1 hour prior to contrast media injection. 3 tablet 025 Active diphenhydrAMIN E (BENADRYL) 50 mg capsuleIndicat ions:Contrast media allergy Diphenhydramine (Benadryl) tablet 50mg oral once or capsuleprior to procedure with contrast dye Administer dose 1 hour prior to contrast media injection. 1 capsule 025 Active metoprolol XL (TOPROL-XL) 50 mg extended release tablet Take 1 tablet (50 mg total) by mouth every morning 2024 Discontinued Active Problems Problem Noted Date Diagnosed Date [...] 06/16/2023 COVID-19 06/16/2023 GERD (gastroesophageal reflux disease) History of sarcoidosis 06/05/2023 PARDEEP on CPAP [...] (09/07/2019): Added automatically from request for surgery [id number] Assessment & Plan (05/11/2023 11:28 AM CDT): [...] 08/12/2018 Assessment & Plan (08/30/2019 4:04 PM DRILL INSTRUCTOR): This has been a longstanding complaint without evidence of congestive heart failure on previous testing. Is now associated with chest discomfort, and could represent myocardial ischemia. Assessment & Plan (08/14/2018 5:45 PM DRILL INSTRUCTOR): Continued complaints of exertional dyspnea without any [...] artery disease of n ative artery of [place] heart with stable angina pectoris 08/06/2014 Overview (12/31/2016): Coronary arteriosclerosis in [place] artery Assessment & Plan (12/17/2024 8:13 PM [...] isosorbide. Assessment & Plan (11/01/2019 6:33 PM DRILL INSTRUCTOR): On Imdur, he is not experiencing any angina. He is on a low dosage which could be increased if necessary, but there is no reason to increase it at this point. Assessment & Plan (09/03/2019 6:06 PM DRILL INSTRUCTOR): Exertional chest pressure 4.5 years following five [...] Lexiscan. Assessment & Plan (08/14/2018 5:46 PM DRILL INSTRUCTOR): No symptoms of chest discomfort. Continue aspirin. Assessment & Plan (11/04/2017 10:06 AM DRILL INSTRUCTOR): No symptoms of myocardial ischemia. He is [...] made. Assessment & Plan (11/01/2019 6:34 PM DRILL INSTRUCTOR): Blood pressure is adequately controlled on current regimen. No change was made. Assessment & Plan (08/30/2019 4:06 PM DRILL INSTRUCTOR): Blood pressure is higher today. He says he took his medications. Will reassess his blood pressure with his stress test. Advised to improved diet Assessment & Plan (08/14/2018 5:46 PM DRILL INSTRUCTOR): Blood pressure is adequately controlled on current regimen. No change was made. Assessment & Plan (11/04/2017 10:06 AM DRILL INSTRUCTOR): Blood pressure is adequately controlled on current regimen. No change was made. Pure hypercholesterolemia 08/06/2014 Overview (12/31/2016): Pure hypercholesterolemia Assessment & Plan (05/04/2021 10:38 AM CDT): He is on low-dose statin therapy. He has previously not tolerated high-intensity therapy. Assessment & Plan (05/01/2020 11:03 AM CDT): He is on low intensity statin therapy intentionally because of myalgias. Assessment & Plan (11/01/2019 6:34 PM DRILL INSTRUCTOR): On chronic lipid lowering therapy with good control. No changes made. Assessment & Plan (09/03/2019 6:06 PM DRILL INSTRUCTOR): LDL is 109, above target. He is on only low-dose simvastatin because he developed myalgias on other statins. Assessment & Plan (08/14/2018 5:46 PM DRILL INSTRUCTOR): On chronic lipid lowering therapy with good control. No changes made. Assessment & Plan (11/04/2017 10:06 AM DRILL INSTRUCTOR): On chronic lipid lowering therapy with good control. No changes made. Encounters Date Type Department Care Team Description 02/25/2025 Telephone [facility] - Interventional Radiology [address] [place] [phone] Demetria Trujillo RN 02/25/2025 Orders Only [facility] - Interventional Radiology [address] [place] [phone] Demetria Trujillo RN Contrast media allergy (Primary Dx) 12/19/2024 Orders Only [facility] - Interventional Radiology [address] [place] [phone] Demetria Trujillo RN 12/19/2024 Telephone [facility] - Interventional Radiology [address] [place] [phone] Demetria Trujillo RN 12/18/2024 1:00 PM CDT Office Visit [facility] Cardiology [address] [place] [address] Yoel Siu MD Coronary artery disease of [place] artery of [place] heart with stable angina pectoris (Primary Dx); Chronic diastolic (congestive) heart failure (HCC); Paroxysmal atrial fibrillation (HCC); Chronic heart failure with preserved ejection fraction (HCC) 12/18/2024 Telephone [facility] - Interventional Radiology [address] [place] [phone] Demetria Trujillo RN 12/12/2024 Telephone [facility] - Interventional Radiology [address] [place] [phone] Demetria Trujillo, THAI 12/10/2024 Telephone [facility] - Interventional Radiology [address] [place] [phone] Demetria Trujillo, RN 12/10/2024 Telephone [facility] - Interventional Radiology [address] [place] [phone] Demetria Trujillo, RN 12/07/2024 4:08 PM CDT - 12/08/2024 1:49 PM CDT Hospital Encounter [address] [phone] Renard Naylor, Roseanna Huertas MD Renal mass, right Discharge Disposition: Discharge to home or self care 12/07/2024 1:11 PM CDT Anesthesia Event [facility] - Interventional Radiology [address] [place] [phone] Parish Ley DO Heckroth, John Arthur, MD 12/07/2024 Orders Only [address] [phone] Renard Naylor DO 12/07/2024 Orders Only [facility] - Interventional Radiology [address] [place] [phone] Annie Escobar RN Paroxysmal atrial fibrillation (HCC) 12/07/2024 Telephone [facility] - Interventional Radiology [address] [place] [phone] Demetria Trujillo, THAI 12/07/2024 Orders Only [facility] - Interventional Radiology [address] [place] [phone] Parish Mallory RN 12/07/2024 Orders Only [facility] - Interventional Radiology [address] [place] [phone] Santa Duval RN 12/06/2024 Orders Only [facility] - Interventional Radiology [address] [place] [phone] Annie Escobar, THAI 12/06/2024 Orders Only [facility] - Interventional Radiology [address] [place] [phone] Annie Escobar, THAI Right renal mass (Primary Dx); Paroxysmal atrial fibrillation (HCC) 12/06/2024 Orders Only [facility] - Interventional Radiology [address] [place] [phone] Parish Mallory RN 12/03/2024 Telephone [facility] - Interventional Radiology [address] [place] [phone] Demetria Trujillo RN from Last 3 Months Immunizations Immunization Administration [...] reflux disease) High cholesterol Hypothyroidism Sleep apnea MD (myocardial infarction) (HCC) Sarcoidosis Chronic respiratory failure with hypoxia, on home O2 therapy (HCC) Cataract 2015 Heart disease 1982 Family History Medical History Relation Name Comments Heart disease Brother Diabetes Father Meng hutchinsonid Heart attack Father Mengmercy hutchinsonid Myocardial I nfarction; Cancer Mother Heart disease Sister Relation Name Status Comments Brother Father Meng gabinoguid Alive Mother Sister Social History Tobacco Use [...] often do you attend chur ch or cheondoism services? More than 4 times per year 06/17/2023 Do you belong to any clubs o r organizations such as anabaptism groups, unions, fraternal or athletic groups, or [...] on file Legal Sex Male 12:10 PM DRILL INSTRUCTOR Gender Identity Not on file Sexual Orientation [...] 12:53 PM CDT Height 177.8 cm (5' 10) 12/18/2024 12:53 PM CDT Body Mass Index 30.99 12/18/2024 12:53 PM CDT Plan of Treatment Health Maintenance Due Date Last Done Comments Depression Screening 1940 DTaP/Tdap/Td Vaccine (1 - Tdap) 1951 Hepatitis B Screening 1958 Pneumococcal vaccine 65+ (1 of 2 - PCV) 1959 Zoster Vaccine (1 of 2) 1990 Well Visit 65+ 2005 Covid-19 Vaccine (2 - season) 2024 Influenza Vaccine (Season Ended) 2025 06/26/20 20 Fall Risk Assessment 12/08/2025 12/08/2024, 08/10/20 21 Goals Goal Patient Goal Type Associated Problems Recent Progress Patient-Stated? Author CCM Chronic Pain Care Plan Chronic Care Management Sharmila Peters, RN Note: Problem: Chronic Pain Goals: 1. Minimize further functional decline 2. Maximize quality of life 3. Control pain Strategies: - Activity/exercise program recommendation - Conservative stepwise pain medicine strategy with multi-disciplinary approach - Recommend healthy lifestyle strategies and compensatory methods as needed Reduce the likelihood of falling Lifestyle Sharmila Peters, RN Note: Below are four things you [...] on stairs Contact your local community or [facility] for information on exercise, fall prevention programs, or options for improving home safety. Medical Devices Implanted Type Area Tank Storage Supervisor Device Identifier Shelf Expiration Date Model / Serial / Lot Other - See Comments Other - see comments Bilateral : Knee Stent Implanted:Qty : 5 Stent N/A: Heart Description:Complete at [place] b ap Procedures Procedure Name Priority Date/Time Associated Diagnosis Comments EGFR Routine 12/08/2024 12:49 AM CDT DIFFERENTIAL AUTO Routine 12/08/2024 12: 49 AM CDT CBC WITH AUTO DIFFERENTIAL Routine 12/08/2024 12:49 AM CDT BASIC METABOLIC PANEL Routine 12/08/2024 12:49 AM CDT CBC WITHOUT DIFFERENTIAL Timed 12/07/2024 7:52 PM CDT CBC WITHOUT DIFFERENTIAL STAT 12/07/2024 4:04 PM CDT CRYOABLATION RENAL RIGHT Schedule Routine, Read Routine (OP Routine) 12/07/2024 3:27 PM CDT Renal mass, right SURGICAL PATHOLOGY Routine 12/07/2024 2: 20 PM CDT Renal mass, right TX AN PROCEDURE PLACEHOLDER Routine 12/07/2024 1:33 PM CDT TX AN ELECTIVE ENDOTRACHEAL AIRWAY Routine 12/07/2024 1:33 PM CDT from Last 3 Months Results * (ABNORMAL) [...] Palmer MD LAB BLOOD ORDERABLES Final Result [facility] [address] Department [place] [address] * (ABNORMAL) Differential, auto (12/08/2024 12:49 AM CDT) Neutrophil abs 11.4(H) 1.5 - 6.5 K/cumm Imm gran abs 0.1 0.0 - 0.1 K/cumm [facility] Lymphocyte abs 1.0 0.8 - 3.3 K/cumm [facility] Monocyte abs 0.4 0.2 - 0.8 K/cumm [facility] Eosinophil abs 0.0 0.0 - 0.5 K/cumm [facility] Basophil abs 0.0 0.0 - 0.1 K/cumm [facility] Neutrophil pct 88.4 % [facility] Comment: Interpretive Data Percent cell count reference ranges are not reported, since discordance with absolute values may lead to misinterpretation of CBC data. Current Interpretive Data was last revised on 2018. Imm gran pct 0.7 % [facility] Comment: Interpretive Data Percent cell count reference ranges are not reported, since discordance with absolute values may lead to misinterpretation of CBC data. Current Interpretive Data was last revised on 2018. Lymphocyte pct 7.5 % [facility] Comment: Interpretive Data Percent cell count reference ranges are not reported, since discordance with absolute values may lead to misinterpretation of CBC data. Current Interpretive Data was last revised on 2018. Monocyte pct 3.2 % [facility] Comment: Interpretive Data Percent cell count reference ranges are not reported, since discordance with absolute values may lead to misinterpretation of CBC data. Current Interpretive Data was last revised on 2018. Eosinophil pct 0.0 % [facility] Comment: Interpretive Data Percent cell count reference ranges are not reported, since discordance with absolute values may lead to misinterpretation of CBC data. Current Interpretive Data was last revised on 2018. Basophil pct 0.2 % [facility] Comment: Interpretive Data Percent cell count reference ranges are not reported, since discordance with absolute values may lead to misinterpretation of CBC data. Current Interpretive Data was last revised on 2018. Blood 12/08/2024 12:4 9 AM CDT 12/08/2024 1:48 AM CDT Roseanna Lugo MD LAB BLOOD ORDERABLES Final Resul t [facility] [address] Department of Laboratories [place], [place] [id number] * (ABNORMAL) CBC with auto differential (12/08/2024 12:49 AM CDT) [facility] WBC 12.9(H) 3.8 - 9.9 K/cumm Hgb 12.0(L) 13.0 - 17.5 g/dL [facility] Hct 37.9(L) 38.9 - 50.3 % [facility] Plt 184 150 - 400 K/cumm [facility] MPV 12.7(H) 9.1 - 12.3 fL [facility] RBC 4.04(L) 4.30 - 5.80 M/cumm [facility] MCV 93.8 81.3 - 96.4 fL [facility] MCH 29.7 27.1 - 33.3 pg [facility] MCHC 31.7(L) 32.3 - 35.7 g/dL [facility] RDW CV 13.6 11.1 - 14.9 % [facility] RDW SD 47.6 35.7 - 48.1 fL [facility] NRBC abs 0.00 0.00 - 0.01 K/cumm [facility] Blood 12/08/2024 12:4 9 AM CDT 12/08/2024 1:48 AM CDT Roseanna Lugo MD LAB BLOOD ORDERABLES Final Resul t [facility] [address] Department of Laboratories [place], [place] [phone] * (ABNORMAL) Basic metabolic panel (12/08/2024 12:49 AM CDT) [facility] Sodium 137 135 - 145 mmol/L Potassium, pl 4.1 3.3 - 4.9 mmol/L [facility] Chloride 97 97 - 110 mmol/L [facility] CO2 24 22 - 32 mmol/L [facility] Anion gap 16(H) 2 - 15 mmol/L [facility] BUN 22 6 - 25 mg/dL [facility] Creatinine 1.42(H) 0.80 - 1.30 mg/dL [facility] Glucose 178 70 - 199 mg/dL [facility] Comment: Interpretive Data Fasting glucose >/= [...] 2022. Calcium 8.7 8.5 - 10.3 mg/dL [facility] Blood 12/08/2024 12:4 9 AM CDT 12/08/2024 1:47 AM CDT us Darvin Palmer MD LAB BLOOD ORDERABLES Final Result [facility] [address] Department [place] [address] * (ABNORMAL) CBC without differential (12/07/2024 7:52 PM CDT) WBC 12.4(H) 3.8 - 9.9 K/cumm Hgb 12.5(L) 13.0 - 17.5 g/dL [facility] Hct 39.2 38.9 - 50.3 % [facility] Plt 192 150 - 400 K/cumm [facility] MPV 12.5(H) 9.1 - 12.3 fL [facility] RBC 4.18(L) 4.30 - 5.80 M/cumm [facility] MCV 93.8 81.3 - 96.4 fL [facility] MCH 29.9 27.1 - 33.3 pg [facility] MCHC 31.9(L) 32.3 - 35.7 g/dL [facility] RDW CV 13.8 11.1 - 14.9 % [facility] RDW SD 46.9 35.7 - 48.1 fL [facility] NRBC abs 0.00 0.00 - 0.01 K/cumm [facility] Blood 12/07/2024 7:52 PM CDT 12/07/2024 8:00 PM CDT us Roseanna Lugo MD LAB BLOOD ORDERABLES Final Resul t Performing Organization Address City/[facility]/ZIP Co de Phone Number [facility] [address] Department [place] [address] * (ABNORMAL) CBC without differential (12/07/2024 4:04 PM CDT) WBC 8.9 3.8 - 9.9 K/cumm Hgb 11.9(L) 13.0 - 17.5 g/dL [facility] Hct 37.1(L) 38.9 - 50.3 % [facility] Plt 156 150 - 400 K/cumm [facility] MPV 12.6(H) 9.1 - 12.3 fL [facility] RBC 3.92(L) 4.30 - 5.80 M/cumm [facility] MCV 94.6 81.3 - 96.4 fL [facility] MCH 30.4 27.1 - 33.3 pg [facility] MCHC 32.1(L) 32.3 - 35.7 g/dL [facility] RDW CV 13.8 11.1 - 14.9 % [facility] RDW SD 47.8 35.7 - 48.1 fL [facility] NRBC abs 0.00 0.00 - 0.01 K/cumm [facility] Blood 12/07/2024 4:04 PM CDT 12/07/2024 4:21 PM CDT Narrative [facility] - 12/07/2024 4:28 PM CDT 6 Hours post procedure. us Darvin Palmer MD LAB BLOOD ORDERABLES Final Result [facility] [address] Department [place] [address] * IR Cryoablation Renal Right (12/07/2024 3:27 [...] was obtained. Prior to beginning the procedure, [place] Protocol was performed to confirm the patient?s [...] 17-gauge Core Biopsy Needle: 18 gauge [place] [address] guidance, 2 [...] was obtained. Prior to beginning the procedure, [place] Protocol was performed to confirm the patient?s [...] 17-gauge Core Biopsy Needle: 18 gauge [place] [address] guidance, 2 [...] Surgical pathology (12/07/2024 2:20 PM CDT) Tissue specimen (specimen) (Kidney biopsy, tumor/mass) 12/07/2024 2:20 PM CDT Narrative PATHOLOGY [facility] - 12/10/2024 5:01 PM CDT [address] [address] Tele: Maggi Roque MD - Interior Assemblies Developer Prover Note to Patients: This report may contain [...] PATHOLOGY REPORT Patient Name: JUAN WILKERSON Address: [address] [place] [address] Gender: M : 1940 (Age: 84) Service: Medical Location: [place] [address], Hospital #: [id number] Patient Type: [facility] IN BED Taken: 12/07/2024 Received 12/07/2024 Reported: [...] submitted entirely in cassette A1. [facility] MICROSCOPIC DESCRIPTION: Microscopic examination shows solid [...] renal cell carcinoma. Clerical Data Follows A; 45759, 19602, 90773(5) REPORT IMAGES AND/OR SCANNED DOCUMENTS ONLY VIEWABLE IN PDF FORMAT The immunohistochemical test(s) cited in this report, if any, was developed and its performance characteristics determined by [facility] Pathology Department. It has not been cleared or approved by the U.S. Food and Drug Administration. The FDA has determined that such clearance or approval is not necessary. This test is used for clinical purposes. It should not be regarded as investigational or for research. [facility] Laboratory is certified under the Clinical Laboratory [...] part or completely in the following laboratories: [facility], [facility], [place], [place] [address] [place] [address], [address] [facility], [place] [address]. Darvin Palmer MD LAB PATHOLOGY ORDERABLES F inal Result PATHOLOGY [facility] Laboratory Receiving [address] [place], [place] [id number] * TX AN ELECTIVE ENDOTRACHEAL AIRWAY, TX AN PROCEDURE PLACEHOLDER (12/07/2024 1:33 PM CDT) Narrative Lyndsey Coto CRNA - 12/07/2024 1:33 PM CDT Lyndsey Coto CRNA 12/07/2024 1:34 PM Airway Patient location: OR Urgency: elective Indications for airway management: anesthesia Difficult airway: no Staff: Placed by: CLINICAL QUALITY ASSURANCE ASSOCIATE: Lyndsey Coto CRNA Emergent airway documentation: Risks [...] Montemayor MD ANESTHESIA ORDERABLES Fi nal Result from Last 3 Months Insurance MEDICARE [facility]ICARE [facility] [employer] Advance Directives For more information, please contact: [phone] * Full Code (Latest Code Status on [...] 6:28 PM 06/06/2023 4:36 AM Care Teams Fuel Distribution System Operator Relationship Specialty Start Date End Date Gray Lewis MD [address] [place] [address] PCP - General 09/05/13 Yoel Siu MD [address] [facility] [address] [place] [address] Consulting Physician Cardiovascular Disease 06/06/23
--- OUTSIDE RECORDS SUMMARY | 2025-03-01 12:32 | XMS_ITS | Referral Summary ---
[facility] Address [address] [place] [address] Care Team Providers [employer] Name Role Phone Gray Lewis MD Primary Care Prov ider Yoel Siu MD Unavailable [phone] Encounters Date Type Department Care Team Description 02/25/2025 Telephone [facility] - Interventional Radiology [address] [place] [phone] Demetria Trujillo, RN 02/25/2025 Orders Only [facility] - Interventional Radiology [address] [place] [phone] Demetria Trujillo, RN Contrast media allergy (Primary Dx) 12/19/2024 Orders Only [facility] - Interventional Radiology [address] [place] [phone] Demetria Trujillo, RN 12/19/2024 Telephone [facility] - Interventional Radiology [address] [place] [phone] Demetria Trujillo, RN 12/18/2024 Telephone [facility] - Interventional Radiology [address] [place] [phone] Demetria Trujillo, RN 12/18/2024 1:00 PM CDT Office Visit [facility] Cardiology [address] [place] [address] Yoel Siu MD 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); Chronic diastolic (congestive) heart failure (HCC); Paroxysmal atrial fibrillation (HCC); Chronic heart failure with preserved ejection fraction (HCC) 12/12/2024 Telephone [facility] - Interventional Radiology [address] [place] [phone] Demetria Trujillo RN 12/10/2024 Telephone [facility] - Interventional Radiology [address] [place] [phone] Demetria Trujillo RN 12/10/2024 Telephone [facility] - Interventional Radiology [address] [place] [phone] Demetria Trujillo RN 12/07/2024 4:08 PM CDT - 12/08/2024 1:49 PM CDT Hospital Encounter [address] [phone] Renard Naylor DO Berhil, Anis, MD Renal mass, right Discharge Disposition: Discharge to home or self care 12/07/2024 Orders Only [address] [phone] Renard Naylor DO 12/07/2024 Orders Only [facility] - Interventional Radiology [address] [place] [phone] Annie Escobar RN Paroxysmal atrial fibrillation (HCC) 12/07/2024 Telephone [facility] - Interventional Radiology [address] [place] [phone] Demetria Trujillo RN 12/07/2024 Orders Only [facility] - Interventional Radiology [address] [place] [phone] Parish Mallory, THAI 12/07/2024 Orders Only [facility] - Interventional Radiology [address] [place] [phone] Santa Duval RN 12/07/2024 1:11 PM CDT Anesthesia Event [facility] - Interventional Radiology [address] [place] [phone] Parish Ley DO Heckroth, John Arthur, MD 12/06/2024 Orders Only [facility] - Interventional Radiology [address] [place] [phone] Annie Escobar RN 12/06/2024 Orders Only [facility] - Interventional Radiology [address] [place] [phone] Annie Escobar, THAI Right renal mass (Primary Dx); Paroxysmal atrial fibrillation (HCC) 12/06/2024 Orders Only [facility] - Interventional Radiology [address] [place] [phone] Parish Mallory, THAI 12/03/2024 Telephone [facility] - Interventional Radiology [address] [place] [phone] Demetria rTujillo RN from Last 3 Months Allergies Active Allergy [...] 1 tablet (50 mcg total) by mouth sql report writer before breakfast 021 Active atorvastatin (LIPITOR) 10 mg tablet [...] (09/07/2019): Added automatically from request for surgery [id number] Assessment & Plan (05/11/2023 11:28 AM CDT): [...] 08/12/2018 Assessment & Plan (08/30/2019 4:04 PM SKETCH LINER): This has been a longstanding complaint without evidence of congestive heart failure on previous testing. Is now associated with chest discomfort, and could represent myocardial ischemia. 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 Assessment & Plan (11/01/2019 6:33 PM SKETCH LINER): On Imdur, he is not experiencing any angina. He is on a low dosage which could be increased if necessary, but there is no reason to increase it at this point. Assessment & Plan (09/03/2019 6:06 PM SKETCH LINER): Exertional chest pressure 4.5 years following five [...] Lexiscan. Assessment & Plan (08/14/2018 5:46 PM SKETCH LINER): No symptoms of chest discomfort. Continue aspirin. Assessment & Plan (11/04/2017 10:06 AM SKETCH LINER): No symptoms of myocardial ischemia. He is [...] made. Assessment & Plan (11/01/2019 6:34 PM SKETCH LINER): Blood pressure is adequately controlled on current regimen. No change was made. Assessment & Plan (08/30/2019 4:06 PM SKETCH LINER): Blood pressure is higher today. He says he took his medications. Will reassess his blood pressure with his stress test. Advised to improved diet Assessment & Plan (08/14/2018 5:46 PM SKETCH LINER): Blood pressure is adequately controlled on current regimen. No change was made. Assessment & Plan (11/04/2017 10:06 AM SKETCH LINER): Blood pressure is adequately controlled on current regimen. No change was made. Pure hypercholesterolemia 08/06/2014 Overview (12/31/2016): Pure hypercholesterolemia Assessment & Plan (05/04/2021 10:38 AM CDT): He is on low-dose statin therapy. He has previously not tolerated high-intensity therapy. Assessment & Plan (05/01/2020 11:03 AM CDT): He is on low intensity statin therapy intentionally because of myalgias. Assessment & Plan (11/01/2019 6:34 PM SKETCH LINER): On chronic lipid lowering therapy with good control. No changes made. Assessment & Plan (09/03/2019 6:06 PM SKETCH LINER): LDL is 109, above target. He is on only low-dose simvastatin because he developed myalgias on other statins. Assessment & Plan (08/14/2018 5:46 PM SKETCH LINER): On chronic lipid lowering therapy with good control. No changes made. Assessment & Plan (11/04/2017 10:06 AM SKETCH LINER): On chronic lipid lowering therapy with good [...] 06/17/2023 How often do you attend chur or restoration services? More than 4 times per year 06/17/2023 Do you belong to any clubs o r organizations such as episcopal groups, unions, fraternal or athletic groups, or [...] you are drinking? Patient does not drink 3 Q3: How often do you have si [...] place to sleep or slept in a [place] (including now)? No 06/17/2023 Personal Safety Answer [...] on file Legal Sex Male 12:10 PM SKETCH LINER Gender Identity Not on file Sexual Orientation [...] home safety. Medical Devices Implanted Type Area Forest Logistics Manager Device Identifier Shelf Expiration Date Model / [...] 2: 20 PM CDT Renal mass, right MO AN PROCEDURE PLACEHOLDER Routine 12/07/2024 1:33 PM CDT MO AN ELECTIVE ENDOTRACHEAL AIRWAY Routine 12/07/2024 1:33 [...] Palmer MD LAB BLOOD ORDERABLES Final Result [facility] [address] Department [place] [address] * (ABNORMAL) Differential, auto (12/08/2024 12:49 AM CDT) Neutrophil abs 11.4(H) 1.5 - 6.5 K/cumm Imm gran abs 0.1 0.0 - 0.1 K/cumm [facility] Lymphocyte abs 1.0 0.8 - 3.3 K/cumm [facility] Monocyte abs 0.4 0.2 - 0.8 K/cumm [facility] Eosinophil abs 0.0 0.0 - 0.5 K/cumm [facility] Basophil abs 0.0 0.0 - 0.1 K/cumm [facility] Neutrophil pct 88.4 % [facility] Comment: Interpretive Data Percent cell count reference ranges are not reported, since discordance with absolute values may lead to misinterpretation of CBC data. Current Interpretive Data was last revised on 2018. Imm gran pct 0.7 % [facility] Comment: Interpretive Data Percent cell count reference ranges are not reported, since discordance with absolute values may lead to misinterpretation of CBC data. Current Interpretive Data was last revised on 2018. Lymphocyte pct 7.5 % [facility] Comment: Interpretive Data Percent cell count reference ranges are not reported, since discordance with absolute values may lead to misinterpretation of CBC data. Current Interpretive Data was last revised on 2018. Monocyte pct 3.2 % [facility] Comment: Interpretive Data Percent cell count reference ranges are not reported, since discordance with absolute values may lead to misinterpretation of CBC data. Current Interpretive Data was last revised on 2018. Eosinophil pct 0.0 % [facility] Comment: Interpretive Data Percent cell count reference ranges are not reported, since discordance with absolute values may lead to misinterpretation of CBC data. Current Interpretive Data was last revised on 2018. Basophil pct 0.2 % [facility] Comment: Interpretive Data Percent cell count reference ranges are not reported, since discordance with absolute values may lead to misinterpretation of CBC data. Current Interpretive Data was last revised on 2018. Blood 12/08/2024 12:4 9 AM CDT 12/08/2024 1:48 AM CDT Roseanna Lugo MD LAB BLOOD ORDERABLES Final Resul t Performing Organization Address [facility] Co de Phone Number [facility] [address] [place] [address] * (ABNORMAL) CBC with auto differential (12/08/2024 12:49 AM CDT) WBC 12.9(H) 3.8 - 9.9 K/cumm Hgb 12.0(L) 13.0 - 17.5 g/dL [facility] Hct 37.9(L) 38.9 - 50.3 % [facility] Plt 184 150 - 400 K/cumm [facility] MPV 12.7(H) 9.1 - 12.3 fL [facility] RBC 4.04(L) 4.30 - 5.80 M/cumm [facility] MCV 93.8 81.3 - 96.4 fL [facility] MCH 29.7 27.1 - 33.3 pg [facility] MCHC 31.7(L) 32.3 - 35.7 g/dL [facility] RDW CV 13.6 11.1 - 14.9 % [facility] RDW SD 47.6 35.7 - 48.1 fL [facility] NRBC abs 0.00 0.00 - 0.01 K/cumm [facility] Blood 12/08/2024 12:4 9 AM CDT 12/08/2024 1:48 AM CDT us Roseanna Lugo MD LAB BLOOD ORDERABLES Final Resul t Performing Organization Address City/[facility]/ZIP Co de Phone Number [facility] [address] [place] [address] * (ABNORMAL) Basic metabolic panel (12/08/2024 12:49 AM CDT) [facility] Sodium 137 135 - 145 mmol/L Potassium, pl 4.1 3.3 - 4.9 mmol/L [facility] Chloride 97 97 - 110 mmol/L [facility] CO2 24 22 - 32 mmol/L [facility] Anion gap 16(H) 2 - 15 mmol/L [facility] BUN 22 6 - 25 mg/dL [facility] Creatinine 1.42(H) 0.80 - 1.30 mg/dL [facility] Glucose 178 70 - 199 mg/dL [facility] Comment: Interpretive Data Fasting glucose >/= [...] 2022. Calcium 8.7 8.5 - 10.3 mg/dL [facility] Blood 12/08/2024 12:4 9 AM CDT 12/08/2024 1:47 AM CDT Darvin Palmer MD LAB BLOOD ORDERABLES Final Result [facility] [address] Department [place] [address] * (ABNORMAL) CBC without differential (12/07/2024 7:52 PM CDT) [facility] WBC 12.4(H) 3.8 - 9.9 K/cumm Hgb 12.5(L) 13.0 - 17.5 g/dL [facility] Hct 39.2 38.9 - 50.3 % [facility] Plt 192 150 - 400 K/cumm [facility] MPV 12.5(H) 9.1 - 12.3 fL [facility] RBC 4.18(L) 4.30 - 5.80 M/cumm [facility] MCV 93.8 81.3 - 96.4 fL [facility] MCH 29.9 27.1 - 33.3 pg [facility] MCHC 31.9(L) 32.3 - 35.7 g/dL [facility] RDW CV 13.8 11.1 - 14.9 % [facility] RDW SD 46.9 35.7 - 48.1 fL [facility] NRBC abs 0.00 0.00 - 0.01 K/cumm [facility] Blood 12/07/2024 7:52 PM CDT 12/07/2024 8:00 PM CDT Roseanna Lugo MD LAB BLOOD ORDERABLES Final Resul t [facility] [address] Department [place] [address] * (ABNORMAL) CBC without differential (12/07/2024 4:04 PM CDT) WBC 8.9 3.8 - 9.9 K/cumm Hgb 11.9(L) 13.0 - 17.5 g/dL [facility] Hct 37.1(L) 38.9 - 50.3 % [facility] Plt 156 150 - 400 K/cumm [facility] MPV 12.6(H) 9.1 - 12.3 fL [facility] RBC 3.92(L) 4.30 - 5.80 M/cumm [facility] MCV 94.6 81.3 - 96.4 fL [facility] MCH 30.4 27.1 - 33.3 pg [facility] MCHC 32.1(L) 32.3 - 35.7 g/dL [facility] RDW CV 13.8 11.1 - 14.9 % [facility] RDW SD 47.8 35.7 - 48.1 fL [facility] NRBC abs 0.00 0.00 - 0.01 K/cumm [facility] Blood 12/07/2024 4:04 PM CDT 12/07/2024 4:21 PM CDT Narrative [facility] - 12/07/2024 4:28 PM CDT 6 Hours post procedure. us Darvin Palmer MD LAB BLOOD ORDERABLES Final Result [facility] [address] Department [place] [address] * IR Cryoablation Renal Right (12/07/2024 3:27 [...] was obtained. Prior to beginning the procedure, [place] Protocol was performed to confirm the patient?s [...] 17-gauge Core Biopsy Needle: 18 gauge [place] [address] guidance, 2 [...] was obtained. Prior to beginning the procedure, [place] Protocol was performed to confirm the patient?s [...] 17-gauge Core Biopsy Needle: 18 gauge [place] [address] guidance, 2 [...] tumor/mass) 12/07/2024 2:20 PM CDT Narrative PATHOLOGY [facility] - 12/10/2024 5:01 PM CDT [address] [address] Tele: Maggi Roque MD - Imaging Science Professor Note to Patients: This report may contain [...] PATHOLOGY REPORT Patient Name: JUAN WILKERSON Address: [address] [place] [id number] Gender: M : 1940 (Age: 84) Service: Medical Location: [place] [address], Hospital #: [id number] Patient Type: [facility] IN BED Taken: 12/07/2024 Received 12/07/2024 Reported: 12/10/2024 Physician(s): Darvin Palmer M.D. 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 Report [...] filtered and submitted entirely in cassette A1. [facility] MICROSCOPIC DESCRIPTION: Microscopic examination shows solid nests [...] renal cell carcinoma. Clerical Data Follows A; 08291, 66790, 41231(5) REPORT IMAGES AND/OR SCANNED DOCUMENTS ONLY VIEWABLE IN PDF FORMAT The immunohistochemical test(s) cited in this report, if any, was developed and its performance characteristics determined by [facility] Pathology Department. It has not been cleared or approved by the U.S. Food and Drug Administration. The FDA has determined that such clearance or approval is not necessary. This test is used for clinical purposes. It should not be regarded as investigational or for research. [facility] Laboratory is certified under the [...] part or completely in the following laboratories: [facility], [address], [place] [address] [facility], [address], [place] [address]. Darvin Palmer MD LAB PATHOLOGY ORDERABLES F inal Result PATHOLOGY [facility] Laboratory Receiving [address] [place] [id number] * MO AN ELECTIVE ENDOTRACHEAL AIRWAY, MO AN PROCEDURE PLACEHOLDER (12/07/2024 1:33 PM CDT) Lyndsey Ziegler CRNA - 12/07/2024 1:33 PM CDT Lyndsey Coto CRNA 12/07/2024 1:34 PM Airway Patient location: OR Urgency: elective Indications for airway management: anesthesia Difficult airway: no Staff: Placed by: DYE CAN OPERATOR: Lyndsey Coto CRNA Emergent airway documentation: [...] Result from Last 3 Months Insurance [facility] [facility] [facility] Advance Directives For more information, please contact: [phone] * Full Code (Latest Code Status on [...] 6:28 PM 06/06/2023 4:36 AM Care Teams [employer] Relationship Specialty Start Date End Date Gray Lewis MD [address] [place] [address] PCP - General 09/05/13 Yoel Siu MD [address] [facility] [address] [place] [address] Consulting Physician Cardiovascular Disease 06/06/23
--- NOTE | 2025-03-02 14:33 | WPDSIXMINUTE ---
Six Minute Walk Procedure Procedure Performed Pulmonary Stress Test (6 min walk) Six Minute Walk Six Minute Walk: This is a 6 minute walk test. The test was performed and interpreted in accordance with the 2014 ERS/ATS task force guidelines. Of note, the patient wore 2 L nasal cannula with portable oxygen concentrator during the test. Findings: The patient's resting 2 L NC oxygen saturation measured by pulse oximetry was 94%, the heart rate was 71 bpm, and the modified Manuel dyspnea score was 0. Patient ambulated for 244 meters and oxygen saturation remained 89 to 94%. At the end of the study the heart rate was 99 bpm and the modified Manuel dyspnea score was 3. The patient did not Have desaturations on 2 L nasal cannula oxygen with rest or with ambulation. In comparison to previous 6 minute walk on 09/07/2024 which was also performed on 2 L nasal cannula, the patient's ambulatory distance has decreased from 304 m to 244 m. The meron oxygen saturation has decreased from 92% to 89%.
== END 2025-03-01 12:29 | disposition home or self-care (01) ==
LOC: ANHPFT 12:29
PROVIDERS: Visit Provider Internal Medicine Pulmonary Disease
DX: J96.10 Chronic respiratory failure, unspecified whether with hypoxia or hypercapnia (principal)
CPT/HCPCS: 94618